=== PATIENT | male | born 1960 | race Caucasian/White ===

== ENCOUNTER 2018-04-21 15:50 | Emergency (ER) | payer OTHER ==
--- OUTSIDE RECORDS SUMMARY | 2018-04-21 15:53 | XMS REPORT | Clinical Summary ---
:1960 Author Organization [facility] Address [address] [place] [address] Care Team Providers Name Role Phone Charisse Gramajo MD Primary Care Provider Allergies No Known Allergies Current Medications Prescription Sig. Disp. Refills Start Date End Date Status tamsulosin (FLOMAX) Take 1 capsule Active 0.4 mg every day by capsule,extended oral route for release 24hr 90 days. pantoprazole Take 1 tablet 30 tablet 1 02/19/2018 Active (PROTONIX) 40 MG EC (40 mg total) tablet by mouth daily. acetaminophen-codein Take 1 tablet Active e (TYLENOL WITH by mouth every CODEINE #4) 300-60 4 (four) hours mg per tablet as needed for moderate pain. capecitabine Take by mouth. Active (XELODA) 500 mg Take 3 tabs in chemo tablet the AM and 4 Tabs in the PM daily for 14 days then one week off traMADol (ULTRAM) 50 Take 50 mg by 11/22/19 Discontinued mg tablet mouth every 6 18 (six) hours as needed for moderate pain. omeprazole Take 20 mg by 11/22/19 Discontinued (PriLOSEC) 20 MG mouth daily. 18 capsule ondansetron (ZOFRAN) Take 1 tablet 50 tablet 0 08/12/2017 09/11/19 8 MG (8 mg total) by 18 tabletIndications: mouth every 6 Rectal cancer (six) hours as needed for nausea or vomiting for up to 30 days. capecitabine Take 4 tablets 200 tablet 0 08/12/2017 11/21/19 (XELODA) 500 mg (2,000 mg) by 18 chemo mouth every tabletIndications: morning and Rectal cancer evening on days of radiation. HYDROcodone-acetamin Take 1 tablet 100 tablet 08/12/2017 08/12/20 Discontinued ophen (NORCO) 5-325 by mouth every 17 mg per 4 (four) hours tabletIndications: as needed for Rectal cancer moderate pain for up to 30 days. Max Daily Amount: 6 tablets HYDROcodone-acetamin Take 1 tablet 100 tablet 08/12/2017 09/11/19 ophen (NORCO) 5-325 by mouth every 18 mg per 4 (four) hours tabletIndications: as needed for Rectal cancer moderate pain for up to 30 days. Max Daily Amount: 6 tablets SUPREP BOWEL PREP Take 2 Bottles 354 mL 0 11/25/2017 11/26/19 KIT 17.5-3.13-1.6 (354 mL total) 18 gram recon soln by mouth once for 1 dose. Take as directed by physician traMADol (ULTRAM) 50 Take 1-2 50 tablet 0 12/11/2017 12/22/19 mg tablet tablets (50-100 18 mg total) by mouth every 6 (six) hours as needed (pain) for up to 10 days. tamsulosin (FLOMAX) Take 1 capsule 30 capsule 0 12/11/2017 01/11/20 0.4 mg (0.4 mg total) 18 capsule,extended by mouth release 24hr nightly for 30 days. cefdinir (OMNICEF) Take 1 capsule 14 capsule 0 12/20/2017 12/28/19 300 MG capsule (300 mg total) 18 by mouth 2 (two) times a day for 7 days. phenazopyridine Take 1 tablet 6 tablet 0 12/20/2017 12/24/19 (PYRIDIUM) 200 MG (200 mg total) 18 tablet by mouth 3 (three) times a day for 3 days. zolpidem (AMBIEN) 5 Take 1 tablet 5 tablet 0 12/25/2017 12/26/19 Discontinued MG tablet (5 mg total) by 18 mouth nightly as needed for sleep for up to 5 days. zolpidem (AMBIEN) 5 Take 1 tablet 5 tablet 0 12/25/2017 12/31/19 MG tablet (5 mg total) by 18 mouth nightly as needed for sleep for up to 5 days. amoxicillin-pot Take 1 tablet 10 tablet 0 01/24/2018 02/02/20 Discontinued clavulanate by mouth 2 18 (AUGMENTIN) 875-125 (two) times a mg per tablet day for 5 days. ondansetron (ZOFRAN) Take 4 mg by 02/18/20 Discontinued 4 MG tablet mouth every 8 18 (eight) hours as needed for nausea or vomiting. capecitabine Take 3 tabs PO 98 tablet 8 02/17/2018 02/18/20 Discontinued (XELODA) 500 mg QAM and 4 tabs 18 chemo PO QPM daily tabletIndications: for 14 days, Rectal cancer then take 1 week off. capecitabine Take 3 tabs 98 tablet 8 02/17/2018 03/03/20 (XELODA) 500 mg (1500 mg) PO q 18 chemo tablet AM and 4 tabs (2000 mg) PO q PM daily for 14 days followed by 7 days off then repeat cycle simethicone (GAS-X) Chew 1 tablet 40 tablet 1 02/19/2018 03/21/20 80 MG chewable (80 mg total) 18 tablet every 6 (six) hours as needed for flatulence for up to 30 days. traMADol (ULTRAM) 50 Take 1 tablet 40 tablet 1 02/19/2018 03/14/20 Discontinued mg tablet (50 mg total) 18 by mouth every 6 (six) hours as needed for moderate pain for up to 30 days. ciprofloxacin Take 1 tablet 14 tablet 0 03/21/2018 03/25/20 Discontinued (CIPRO) 500 MG (500 mg total) 18 tablet by mouth 2 (two) times a day for 7 days. Active Problems Problem Noted Date Fever 01/23/2018 CA of rectum 12/03/2017 Rectal cancer 07/30/2017 Encounters Date Type Specialty Care Team Description 04/18/2018 Orders Only Oncology Anibal, Malignant neoplasm JERILYN Marquez of rectum (Primary Dx) 04/17/2018 Office Visit General Surgery Lisandro Velázquez MD Alagugurusamy, Virginia Burnett, RODY-Johnathan 04/09/2018 Office Visit General Surgery Lisandro Velázquez Rectal cancer MD Art (Primary Dx) 04/08/2018 Lab Lab Lucien Elaine MD 04/04/2018 Lab Lab Lisandro Velázquez MD 03/27/2018 Telephone Oncology Chivo Leung MD 03/26/2018 Orders Only Oncology Chivo Leung MD 03/25/2018 Lab Lab Chivo Leung Malignant neoplasm MD Johnson of rectum 03/25/2018 Office Visit Oncology Chivo Leung Malignant neoplasm of rectum (Primary Dx); MD Johnson Rectal cancer 03/25/2018 Orders Only Oncology Moriah Walters, PharmD 03/25/2018 Orders Only Oncology Anibal, Malignant neoplasm JERILYN Marquez of rectum (Primary Dx) 03/21/2018 Telephone Oncology Monik [facility] RN 03/21/2018 Telephone Oncology Alma Barnett, MA 03/21/2018 Orders Only Oncology Monik [facility] RN 03/20/2018 Office Visit General Surgery Lisandro Velázquez Rectal cancer MD Art (Primary Dx) 03/20/2018 Telephone Oncology Chivo Leung MD 03/14/2018 Infusion Oncology Chivo Leung Rectal cancer MD Johnson (Primary Dx) Xochitl Quiñonez RN 03/11/2018 Orders Only Oncology Monik [facility] RN 02/25/2018 Orders Only Oncology Faith Jones 02/25/2018 Orders Only Oncology Cynthia Garcia, PharmD 02/21/2018 Infusion Oncology Chivo Leung Rectal cancer MD Johnson (Primary Dx) 02/21/2018 Oncology Oncology Bronson Schroeder RN 02/21/2018 Orders Only Oncology James Chester RN 02/20/2018 Hospital Encounter Radiology Chivo Leung Malignant neoplasm MD Johnson of rectum 02/19/2018 Office Visit General Surgery Lisandro Velázquez Rectal cancer MD Art (Primary Dx) Kaye Trevino NP-C 02/19/2018 Telephone Oncology Chivo Leung MD 02/18/2018 Orders Only Oncology Monik [facility] RN 02/18/2018 Telephone Oncology Chivo Leung MD 02/17/2018 Hospital Encounter Radiology Chivo Leung Malignant neoplasm MD Johnson of rectum 02/17/2018 Orders Only Oncology Monik [facility] RN 02/17/2018 Telephone Oncology Chivo Leung MD 02/17/2018 Orders Only Oncology Chivo Leung Rectal cancer MD Johnson (Primary Dx) 02/14/2018 Orders Only Oncology Anibal, Malignant neoplasm of rectum ( Primary Dx); JERILYN Marquez Pre-op testing 02/13/2018 Lab Lab Chivo Leung Malignant neoplasm MD Johnson of rectum 02/13/2018 Office Visit Oncology Chivo Leung Malignant neoplasm of rectum (Primary Dx); MD Johnson Rectal cancer 02/13/2018 Orders Only Oncology Moriah Walters, Rectal cancer PharmD 02/07/2018 Telephone Oncology Chivo Leung MD 02/06/2018 Hospital Encounter Gastroenterology Lisandro Velázquez MD 02/06/2018 Anesthesia Event Gastroenterology Bc Nguyen MD 02/06/2018 Procedure Pass Gastroenterology 02/06/2018 Surgery Gastroenterology Lisandro Velázquez COLONOSCOPY MD Art 01/30/2018 Hospital Encounter Gastroenterology Lisandro Velázquez MD 01/30/2018 Procedure Pass Gastroenterology 01/30/2018 Surgery Gastroenterology Lisandro Velázquez COLONOSCOPY with MD Art bx and snare 01/29/2018 Anesthesia Event Gastroenterology Dhmarcela, Wesley Vaz MD 01/28/2018 Office Visit General Surgery Alagugurusamy, Rectal cancer ( Primary Dx); Kaye Rectal pain TAMMY Ventura Eric Mitchell, MD 01/24/2018 Office Visit General Surgery Lisandro Velázquez Rectal cancer MD Art (Primary Dx) 01/22/2018 Hospital Encounter Orthopedic Surgery Deep Koroma Fever, unspecified fever cause (Primary Dx); Audrey Styles MD Rectal pain; 01/24/2018 Lenin John Rectal bleeding; MD Rashel Acute renal failure, unspecified acute renal failure type 01/16/2018 Office Visit General Surgery Alagugurusamy, Rectal cancer Kaye (Primary Dx) TAMMY Ventura Eric Mitchell, MD 01/09/2018 Office Visit General Surgery Lisandro Velázquez Rectal cancer (Primary Dx); MD Art Adverse effect of radiation, subsequent encounter 01/02/2018 Office Visit General Surgery Lisandro Velázquez Rectal cancer (Primary Dx); MD Art Adverse effect of radiation, sequela 12/29/2017 Documentation General Surgery Lisandro Velázquez MD 12/25/2017 Office Visit General Surgery Lisandro Velázquez Rectal cancer MD Art (Primary Dx) 12/20/2017 Emergency Emergency Medicine Retana, Obstructed Camilo catheter , initial encounter (Primary Dx); - Mikel Angel, Generalized abdominal pain; 12/21/2017 DO Urinary tract infection associated with indwelling urethral catheter, initial encounter; Abnormal CT of the abdomen 12/20/2017 Documentation General Surgery Kaye Trevino NP-C 12/17/2017 Office Visit General Surgery Belinda, CA of rectum Kaye (Primary Dx) TAMMY Ventura 12/13/2017 Office Visit General Surgery Belinda, Dehydration ( Primary Dx); Kaye Rectal cancer TAMMY Ventura 12/11/2017 Patient Outreach Quality Shanice Chase RN 12/10/2017 Office Visit General Surgery Lisandro Velázquez Rectal cancer MD Art (Primary Dx) 12/03/2017 Hospital Encounter General Surgery Lisandro Velázquez CA of rectum - MD Art 12/11/2017 12/03/2017 Procedure Pass General Surgery 12/03/2017 Surgery General Surgery Lisandro Velázquez ROBOTIC ASSISTED MD Art LAPAROSCOPIC LOW ANTERIOR COLON RESECTION W/ DIVERTING LOOP ILEOSTOMY, SMALL BOWEL RESECTION 11/28/2017 Lab Lab Lisandro Velázquez MD 11/27/2017 Orders Only General Surgery Lisandro Velázquez Rectal cancer MD Art (Primary Dx) 11/25/2017 Orders Only General Surgery Lisandro Velázquez MD 11/21/2017 Office Visit General Surgery Lisandro Velázquez Rectal cancer MD Art (Primary Dx) 11/21/2017 Pre-Admit Testing Pre-Admission Testing Lisandro Velázquez Preop testing Appointment MD Art (Primary Dx) 11/21/2017 Anesthesia Event General Surgery Hannah Winslow NP 10/10/2017 Office Visit General Surgery Lisandro Velázquez Rectal cancer MD Art (Primary Dx) 10/10/2017 Hospital Encounter Radiation Oncology Johnson Nunez MD 09/09/2017 Hospital Encounter Radiation Oncology Johnson Nunez MD 09/10/2017 08/19/2017 Hospital Encounter Radiation Oncology Johnson Nunez MD 08/12/2017 Office Visit Oncology Chivo Leung Rectal cancer MD Johnson (Primary Dx) 08/12/2017 Orders Only Oncology Sofia Watson Rectal cancer RN (Primary Dx) 08/12/2017 Orders Only Oncology Sofia Watson Rectal cancer RN (Primary Dx) 08/09/2017 Office Visit General Surgery Lisandro Velázquez Rectal cancer MD Art (Primary Dx) 08/08/2017 Telephone Oncology Chivo Leung MD 08/06/2017 Hospital Encounter Radiology Lisandro Velázquez Rectal cancer MD Art 08/06/2017 Office Visit General Surgery Lisandro Velázquez Rectal cancer (Primary Dx); MD Art Fecal urgency 08/06/2017 Procedure Pass Radiology after 04/20/2017 Family History Medical History Relation Name Comments Lung cancer Father Asbestosis Relation Name Status Comments Father Social History Tobacco Use Types Packs/Day Years Used Date Never Smoker Smokeless Tobacco: Never Used Alcohol Use Drinks/Week oz/Week Comments Yes 4 Standard drinks or equivalent 2.4 Sex Assigned at Date Recorded Not on file Last Filed Vital Signs Vital Sign Reading Time Taken Blood Pressure 123/92 04/17/2018 2:51 PM CDT Pulse 53 04/17/2018 2:51 PM CDT Temperature 36.3 C (97.3 F) 03/20/2018 8:51 AM CDT Respiratory Rate 17 03/14/2018 10:45 AM CDT Oxygen Saturation 100% 03/14/2018 10:45 AM CDT Inhaled Oxygen Concentration - - Weight 104 kg (229 lb) 03/25/2018 12:09 PM CDT Height 188 cm (6' 2") 03/14/2018 10:45 AM CDT Body Mass Index 29.4 03/25/2018 12:09 PM CDT Plan of Treatment Date Type Specialty Care Team Description 04/23/2018 Office Visit General Surgery Lisandro Velázquez MD [address] [facility] [address] [place] [address] 04/25/2018 Infusion Oncology Chivo Leung MD [address] [place] [address] 05/08/2018 Lab Lab Lisandro Ruiz MD [address] [phone] 05/08/2018 Office Visit Oncology Chivo Leung MD [address] [place] [address] [phone] 05/16/2018 Infusion Oncology Chivo Leung MD [address] [place] [address] [phone] 06/06/2018 Infusion Oncology Chivo Leung MD [address] [place] [phone] 06/27/2018 Infusion Oncology Chivo Leung MD [address] [place] [phone] 07/18/2018 Infusion Oncology Chivo Leung MD [address] [place] [phone] Health Maintenance Due Date Last Done Comments SHINGRIX VACCINE (#1) 02/12/2012 INFLUENZA VACCINE 04/09/2018 COLON CANCER SCREENING 07/30/2027 07/30/2017 Implants Implanted Type Area Sales Service Rep Device Expiration Model / Identifier Date Serial / Lot Port Imlpntbl Smart Port W/ Dtchd 0.4ml 6.6fr 55cm W/ Sheath - [id number] Implantable N/A: ANGIODYNAMICS 11/06/2020 [id number] / Implanted: 02/20/2018 (Quantity not on file) Infusion Ports N/A INC / or Accessories [id number] Procedures Procedure Name Priority Date/Time Associated Diagnosis Comments SMEAR REVIEW STAT 03/25/2018 11:29 Results for this AM CDT procedure are in the results section. VITAMIN D 25 HYDROXY STAT 03/25/2018 11:29 Malignant neoplasm of Results for this LEVEL AM CDT rectum procedure are in the results section. ESTIMATED GFR STAT 03/25/2018 11:29 Results for this AM CDT procedure are in the results section. HC COMPLETE BLD COUNT STAT 03/25/2018 11:29 Malignant neoplasm of Results for this W/AUTO DIFF AM CDT rectum procedure are in the results section. URIC ACID LEVEL STAT 03/25/2018 11:29 Malignant neoplasm of Results for this AM CDT rectum procedure are in the results section. PHOSPHORUS LEVEL STAT 03/25/2018 11:29 Malignant neoplasm of Results for this AM CDT rectum procedure are in the results section. LDH STAT 03/25/2018 11:29 Malignant neoplasm of Results for this AM CDT rectum procedure are in the results section. CARCINOEMBRYONIC STAT 03/25/2018 11:29 Malignant neoplasm of Results for this ANTIGEN (CEA) AM CDT rectum procedure are in the results section. COMPREHENSIVE METABOLIC STAT 03/25/2018 11:29 Malignant neoplasm of Results for this PANEL AM CDT rectum procedure are in the results section. GGT STAT 03/25/2018 11:29 Malignant neoplasm of Results for this AM CDT rectum procedure are in the results section. HC COMPLETE BLD COUNT STAT 03/14/2018 11:10 Rectal cancer Results for this W/AUTO DIFF AM CDT procedure are in the results section. ESTIMATED GFR STAT 03/14/2018 10:44 Results for this AM CDT procedure are in the results section. MAGNESIUM LEVEL STAT 03/14/2018 10:44 Rectal cancer Results for this AM CDT procedure are in the results section. COMPREHENSIVE METABOLIC STAT 03/14/2018 10:44 Rectal cancer Results for this PANEL AM CDT procedure are in the results section. ESTIMATED GFR STAT 02/21/2018 10:50 Results for this AM CDT procedure are in the results section. MAGNESIUM LEVEL STAT 02/21/2018 10:50 Rectal cancer Results for this AM CDT procedure are in the results section. HC COMPLETE BLD COUNT STAT 02/21/2018 10:50 Rectal cancer Results for this W/AUTO DIFF AM CDT procedure are in the results section. COMPREHENSIVE METABOLIC STAT 02/21/2018 10:50 Rectal cancer Results for this PANEL AM CDT procedure are in the results section. IR PORT PLACEMENT Routine 02/20/2018 12:35 Malignant neoplasm of Results for this PM CDT rectum procedure are in the results section. CT CHEST W CONTRAST Routine 02/17/2018 3:09 Malignant neoplasm of Results for this ABDOMEN W WO CONTRAST PM CDT rectum procedure are in PELVIS W CONTRAST the results section. PARTIAL THROMBOPLASTIN Routine 02/14/2018 1:34 Malignant neoplasm of Results for this TIME (PTT) PM CDT rectum procedure are in Pre-op testing the results section. PROTHROMBIN TIME WITH Routine 02/14/2018 1:34 Malignant neoplasm of Results for this INR PM CDT rectum procedure are in Pre-op testing the results section. CBC WITH PLATELET AND Routine 02/14/2018 1:34 Malignant neoplasm of Results for this DIFFERENTIAL PM CDT rectum procedure are in the results section. URIC ACID LEVEL Routine 02/14/2018 1:34 Malignant neoplasm of Results for this PM CDT rectum procedure are in the results section. PHOSPHORUS LEVEL Routine 02/14/2018 1:34 Malignant neoplasm of Results for this PM CDT rectum procedure are in the results section. LDH Routine 02/14/2018 1:34 Malignant neoplasm of Results for this PM CDT rectum procedure are in the results section. CARCINOEMBRYONIC Routine 02/14/2018 1:34 Malignant neoplasm of Results for this ANTIGEN (CEA) PM CDT rectum procedure are in the results section. GGT Routine 02/14/2018 1:34 Malignant neoplasm of Results for this PM CDT rectum procedure are in the results section. ESTIMATED GFR Routine 02/13/2018 4:07 Results for this PM CDT procedure are in the results section. COMPREHENSIVE METABOLIC Routine 02/13/2018 4:07 Malignant neoplasm of Results for this PANEL PM CDT rectum procedure are in the results section. HC COMPLETE BLD COUNT Routine 02/06/2018 9:00 Results for this W/AUTO DIFF AM CDT procedure are in the results section. ALBUMIN LEVEL Routine 02/06/2018 9:00 Results for this AM CDT procedure are in the results section. COLONOSCOPY 02/06/2018 7:44 CA of rectum AM CDT SURGICAL PATHOLOGY Routine 01/30/2018 3:13 Results for this REQUEST PM CDT procedure are in the results section. COLONOSCOPY 01/30/2018 1:00 Adenocarcinoma of PM CDT rectum CONSULT TO OSTOMY CARE STAT 01/24/2018 11:44 NURSE AM CDT HC COMPLETE BLD COUNT STAT 01/24/2018 9:09 Results for this W/AUTO DIFF AM CDT procedure are in the results section. SMEAR REVIEW Routine 01/24/2018 6:28 Results for this AM CDT procedure are in the results section. HC COMPLETE BLD COUNT Routine 01/24/2018 6:28 Results for this W/AUTO DIFF AM CDT procedure are in the results section. ESTIMATED GFR Routine 01/24/2018 4:00 Results for this AM CDT procedure are in the results section. PHOSPHORUS LEVEL Routine 01/24/2018 4:00 Results for this AM CDT procedure are in the results section. MAGNESIUM LEVEL Routine 01/24/2018 4:00 Results for this AM CDT procedure are in the results section. BASIC METABOLIC PANEL Routine 01/24/2018 4:00 Results for this AM CDT procedure are in the results section. PREPARE RBC Timed 01/23/2018 8:30 Results for this PM CDT procedure are in the results section. TYPE AND SCREEN Timed 01/23/2018 8:30 Results for this PM CDT procedure are in the results section. CT ABDOMEN PELVIS WO Routine 01/23/2018 6:31 Results for this CONTRAST PM CDT procedure are in the results section. GASTROINTESTINAL PANEL Routine 01/23/2018 3:29 Results for this PM CDT procedure are in the results section. URINALYSIS SCREEN AND Routine 01/23/2018 2:35 Results for this MICROSCOPY, WITH REFLEX PM CDT procedure are in TO CULTURE the results section. URINE CULTURE Routine 01/23/2018 2:35 Results for this PM CDT procedure are in the results section. OSMOLALITY, URINE Routine 01/23/2018 5:20 Results for this AM CDT procedure are in the results section. CHLORIDE LEVEL, URINE, Routine 01/23/2018 5:20 Results for this RANDOM AM CDT procedure are in the results section. UREA NITROGEN, URINE, Routine 01/23/2018 5:20 Results for this RANDOM AM CDT procedure are in the results section. URINE EOSINOPHILS Routine 01/23/2018 5:20 Results for this AM CDT procedure are in the results section. CREATININE LEVEL, Routine 01/23/2018 5:20 Results for this URINE, RANDOM AM CDT procedure are in the results section. PROTEIN, URINE, RANDOM Routine 01/23/2018 5:20 Results for this AM CDT procedure are in the results section. SODIUM LEVEL, URINE, Routine 01/23/2018 5:20 Results for this RANDOM AM CDT procedure are in the results section. SMEAR REVIEW Routine 01/23/2018 4:58 Results for this AM CDT procedure are in the results section. ESTIMATED GFR Routine 01/23/2018 4:58 Results for this AM CDT procedure are in the results section. BASIC METABOLIC PANEL Routine 01/23/2018 4:58 Results for this AM CDT procedure are in the results section. HC COMPLETE BLD COUNT Routine 01/23/2018 4:58 Results for this W/AUTO DIFF AM CDT procedure are in the results section. XR CHEST 1 VW PORTABLE STAT 01/22/2018 8:26 Results for this PM CDT procedure are in the results section. ESTIMATED GFR STAT 01/22/2018 8:00 Results for this PM CDT procedure are in the results section. COMPREHENSIVE METABOLIC STAT 01/22/2018 8:00 Results for this PANEL PM CDT procedure are in the results section. HC COMPLETE BLD COUNT STAT 01/22/2018 8:00 Results for this W/AUTO DIFF PM CDT procedure are in the results section. BLOOD CULTURE, AEROBIC Routine 01/22/2018 8:00 Results for this & ANAEROBIC PM CDT procedure are in the results section. BLOOD CULTURE, AEROBIC Routine 01/22/2018 8:00 Results for this & ANAEROBIC PM CDT procedure are in the results section. CT RENAL STONE PROTOCOL STAT 12/20/2017 10:59 Results for this PM CDT procedure are in the results section. URINALYSIS SCREEN AND Routine 12/20/2017 10:39 Results for this MICROSCOPY, WITH REFLEX PM CDT procedure are in TO CULTURE the results section. GRAM STAIN Routine 12/20/2017 8:45 Results for this PM CDT procedure are in the results section. URINE CULTURE Routine 12/20/2017 8:45 Results for this PM CDT procedure are in the results section. HC COMPLETE BLD COUNT Routine 12/11/2017 9:41 Results for this W/AUTO DIFF AM CDT procedure are in the results section. XR CHEST 1 VW PORTABLE Routine 12/10/2017 4:19 Results for this PM CDT procedure are in the results section. URINALYSIS SCREEN AND Routine 12/10/2017 9:50 Results for this MICROSCOPY, WITH REFLEX AM CDT procedure are in TO CULTURE the results section. GRAM STAIN Routine 12/10/2017 9:50 Results for this AM CDT procedure are in the results section. URINE CULTURE Routine 12/10/2017 9:50 Results for this AM CDT procedure are in the results section. BLOOD CULTURE, AEROBIC Routine 12/10/2017 9:30 Results for this & ANAEROBIC AM CDT procedure are in the results section. BLOOD CULTURE, AEROBIC Routine 12/10/2017 9:30 Results for this & ANAEROBIC AM CDT procedure are in the results section. ESTIMATED GFR STAT 12/10/2017 7:42 Results for this AM CDT procedure are in the results section. HC COMPLETE BLD COUNT STAT 12/10/2017 7:42 Results for this W/AUTO DIFF AM CDT procedure are in the results section. BASIC METABOLIC PANEL STAT 12/10/2017 7:42 Results for this AM CDT procedure are in the results section. CT ABDOMEN PELVIS W Routine 12/09/2017 10:10 Results for this CONTRAST PM CDT procedure are in the results section. ESTIMATED GFR Routine 12/09/2017 4:00 Results for this AM CDT procedure are in the results section. PHOSPHORUS LEVEL Routine 12/09/2017 4:00 Results for this AM CDT procedure are in the results section. MAGNESIUM LEVEL Routine 12/09/2017 4:00 Results for this AM CDT procedure are in the results section. BASIC METABOLIC PANEL Routine 12/09/2017 4:00 Results for this AM CDT procedure are in the results section. HC COMPLETE BLD COUNT Routine 12/09/2017 3:50 Results for this W/AUTO DIFF AM CDT procedure are in the results section. HC COMPLETE BLD COUNT Routine 12/08/2017 4:48 Results for this W/AUTO DIFF AM CDT procedure are in the results section. ESTIMATED GFR Routine 12/08/2017 4:00 Results for this AM CDT procedure are in the results section. PHOSPHORUS LEVEL Routine 12/08/2017 4:00 Results for this AM CDT procedure are in the results section. MAGNESIUM LEVEL Routine 12/08/2017 4:00 Results for this AM CDT procedure are in the results section. BASIC METABOLIC PANEL Routine 12/08/2017 4:00 Results for this AM CDT procedure are in the results section. HC COMPLETE BLD COUNT Routine 12/07/2017 5:10 Results for this W/AUTO DIFF AM CDT procedure are in the results section. ESTIMATED GFR Routine 12/07/2017 4:00 Results for this AM CDT procedure are in the results section. PHOSPHORUS LEVEL Routine 12/07/2017 4:00 Results for this AM CDT procedure are in the results section. MAGNESIUM LEVEL Routine 12/07/2017 4:00 Results for this AM CDT procedure are in the results section. BASIC METABOLIC PANEL Routine 12/07/2017 4:00 Results for this AM CDT procedure are in the results section. POC GLUCOSE Routine 12/06/2017 4:27 Results for this PM CDT procedure are in the results section. XR CHEST 1 VW PORTABLE Routine 12/06/2017 1:28 Results for this PM CDT procedure are in the results section. URINALYSIS SCREEN AND Routine 12/06/2017 12:25 Results for this MICROSCOPY, WITH REFLEX PM CDT procedure are in TO CULTURE the results section. URINE CULTURE Routine 12/06/2017 12:25 Results for this PM CDT procedure are in the results section. XR ABDOMEN 1 VW STAT 12/06/2017 4:40 Results for this PORTABLE AM CDT procedure are in the results section. ESTIMATED GFR Routine 12/06/2017 3:45 Results for this AM CDT procedure are in the results section. PHOSPHORUS LEVEL Routine 12/06/2017 3:45 Results for this AM CDT procedure are in the results section. MAGNESIUM LEVEL Routine 12/06/2017 3:45 Results for this AM CDT procedure are in the results section. BASIC METABOLIC PANEL Routine 12/06/2017 3:45 Results for this AM CDT procedure are in the results section. HC COMPLETE BLD COUNT Routine 12/06/2017 3:45 Results for this W/AUTO DIFF AM CDT procedure are in the results section. URINE EOSINOPHILS STAT 12/05/2017 6:45 Results for this PM CDT procedure are in the results section. CREATININE LEVEL, STAT 12/05/2017 6:45 Results for this URINE, RANDOM PM CDT procedure are in the results section. SODIUM LEVEL, URINE, STAT 12/05/2017 6:45 Results for this RANDOM PM CDT procedure are in the results section. URINALYSIS SCREEN AND STAT 12/05/2017 6:45 Results for this MICROSCOPY, WITH REFLEX PM CDT procedure are in TO CULTURE the results section. GRAM STAIN STAT 12/05/2017 6:45 Results for this PM CDT procedure are in the results section. URINE CULTURE STAT 12/05/2017 6:45 Results for this PM CDT procedure are in the results section. US RENAL Routine 12/05/2017 4:39 Results for this PM CDT procedure are in the results section. ESTIMATED GFR Routine 12/05/2017 4:00 Results for this AM CDT procedure are in the results section. PHOSPHORUS LEVEL Routine 12/05/2017 4:00 Results for this AM CDT procedure are in the results section. MAGNESIUM LEVEL Routine 12/05/2017 4:00 Results for this AM CDT procedure are in the results section. BASIC METABOLIC PANEL Routine 12/05/2017 4:00 Results for this AM CDT procedure are in the results section. HC COMPLETE BLD COUNT Routine 12/05/2017 4:00 Results for this W/AUTO DIFF AM CDT procedure are in the results section. ESTIMATED GFR Routine 12/04/2017 4:00 Results for this AM CDT procedure are in the results section. PHOSPHORUS LEVEL Routine 12/04/2017 4:00 Results for this AM CDT procedure are in the results section. MAGNESIUM LEVEL Routine 12/04/2017 4:00 Results for this AM CDT procedure are in the results section. BASIC METABOLIC PANEL Routine 12/04/2017 4:00 Results for this AM CDT procedure are in the results section. HC COMPLETE BLD COUNT Routine 12/04/2017 4:00 Results for this W/AUTO DIFF AM CDT procedure are in the results section. CONSULT TO OSTOMY CARE Routine 12/03/2017 10:58 NURSE PM CDT NJ AN ELECTIVE Routine 12/03/2017 5:00 ENDOTRACHEAL AIRWAY PM CDT Procedure Note - John Parks CRNA - 12/03/2017 5:00 PM CDT Airway Date/Time: 12/03/2017 4:28 PM Performed by: JOHN PARKS Authorized by: NETTIE MAE Location: OR Urgency: Elective Difficult Airway: No Anesthesiologist: NETTIE MAE Resident/WAREHOUSE ADMINISTRATOR/AA: JOHN PARKS Performed by: resident/WAREHOUSE ADMINISTRATOR/AA Preoxygenated with 100% O2: Yes C-spine Precautions Maintained Throughout: Yes Mask Ventilation: Easy mask Final Airway Type: Endotracheal airway Final Endotracheal Airway: ETT Cuffed: Yes Technique Used: Direct laryngoscopy Insertion Site: Oral Blade Type: Michelle Laryngoscope Blade/Videolaryngoscope Blade Size: 4 ETT Size (mm): 8.0 Cuff at minimum occlusion pressure: Yes Placement Verified by: CO2 detection, direct visualization and equal breath sounds Laryngoscopic view: Grade I - full view of glottis Rapid Sequence Induction (RSI): No Modified RSI: No Number of Attempts at Approach: 1 RESECTION, COLON, LOW ANTERIOR, 12/03/2017 4:45 PM CDT CA of rectum LAPAROSCOPIC, ROBOT-ASSISTED Special Needs XI, AIRSEAL, TATME SET UP CONSULT TO OSTOMY CARE STAT 12/03/2017 11:39 AM NURSE CDT SURGICAL PATHOLOGY Routine 12/03/2017 11:30 AM Results for this REQUEST CDT procedure are in the results section. SURGICAL PATHOLOGY Routine 12/03/2017 11:30 AM Results for this REQUEST CDT procedure are in the results section. SURGICAL PATHOLOGY Routine 12/03/2017 11:30 AM Results for this REQUEST CDT procedure are in the results section. SURGICAL PATHOLOGY Routine 12/03/2017 11:30 AM Results for this REQUEST CDT procedure are in the results section. HC COMPLETE BLD COUNT STAT 11/28/2017 2:44 PM Rectal cancer Results for this W/AUTO DIFF CDT procedure are in the results section. ESTIMATED GFR Routine 11/21/2017 8:35 AM Results for this CDT procedure are in the results section. TYPE AND SCREEN Routine 11/21/2017 8:35 AM Preop testing Results for this CDT procedure are in the results section. COMPREHENSIVE METABOLIC Routine 11/21/2017 8:35 AM Preop testing Results for this PANEL CDT procedure are in the results section. HC COMPLETE BLD COUNT Routine 11/21/2017 8:35 AM Preop testing Results for this W/AUTO DIFF CDT procedure are in the results section. MRI PELVIS W WO CONTRAST STAT 08/06/2017 1:40 PM Rectal cancer Results for this [employer]OP[employer] procedure are in the results section. after 04/20/2017 Results Smear review (03/25/2018 11:29 AM)Only the most recent of3 resultswithin the time period is included. Platelet slide review Dorie adequate [facility] Anisocytosis Moderate [facility] Polychromasia Moderate [facility] Ovalocytes Moderate [facility] Performing Organization Address City/State/Zipcode Phone Number [facility] [address] [place] [address] [place] Estimated GFR (03/25/2018 11:29 AM)Only the most recent of15 resultswithin the time period is included. GFR Non Af Amer 69 mL/min/1.73 m2 [facility] GFR Af Amer 84 mL/min/1.73 m2 [facility] Comment: PATHOLOGY AND GENOMIC Chronic kidney disease: <60 mL/min/1.73m2 MEDICINE Kidney failure: <15 mL/min/1.73m2 The estimated GFR is calculated from the IDMS-traceable Modification of Diet in Renal Disease Equation. The accuracy of the calculation is poor when the creatinine is normal. Calculated values >90 mL/min/1.73m2 are not reported. This equation has not been validated in children (<18 years), women, the elderly (>70 years), or ethnic groups other than Caucasians and Americans. Specimen Plasma specimen Performing Organization Address City/[facility] Phone Number [facility] [address] [place] [id number] [facility] Vitamin D 25 hydroxy level (03/25/2018 11:29 AM) Vitamin D, 25-hydroxy 17.4 (L) 30.0 - 150.0 [facility] Comment: ng/mL PATHOLOGY AND GENOMIC This assay reports the sum of 25-hydroxy vitamin D3 and 25-hydroxy vitamin MEDICINE D2. Reference range: 0-17 years: Deficiency: less than 20ng/mL Optimum level: greater than or equal to 20 ng/mL. 18 years and older: Deficiency: less than 20ng/mL Insufficiency: 20-29 ng/mL Optimum Level: 30-80 ng/mL The assay reportable range is 3.4155.9 ng/mL. Levels higher than 150 ng/mL may be associated with toxicity. If toxicity is clinically suspected and the reported result is >155.9 ng/mL,contact lab for alternative methods to obtain a definitivelevel. If separate quantitation of 25-hydroxy vitamin D3 and 25-hydroxy vitamin D2 is needed, please contact lab for alternative methods. Specimen Blood Performing Organization Address City/State/Zipcode Phone Number [facility] [address] [place] [phone] [place] CBC with platelet and differential (03/25/2018 11:29 AM)Only the most recent of19 resultswithin the time period is included. WBC 7.14 4.50 - 11.00 k/uL [facility] RBC 3.00 (L) 4.40 - 6.00 m/uL [facility] HGB 8.4 (L) 14.0 - 18.0 g/dL [facility] HCT 27.5 (L) 41.0 - 51.0 % [facility] MCV 91.7 82.0 - 100.0 fL [facility] MCH 28.0 27.0 - 34.0 pg [facility] MCHC 30.5 (L) 31.0 - 37.0 g/dL [facility] RDW - SD 71.2 (H) 37.0 - 55.0 fL [facility] MPV 9.7 8.8 - 13.2 fL [facility] Platelet count 206 150 - 400 k/uL [facility] Nucleated RBC 0.00 /100 WBC [facility] Neutrophils 76.4 (H) 39.0 - 69.0 % [facility] Lymphocytes 12.3 (L) 25.0 - 45.0 % [facility] Monocytes 10.1 (H) 0.0 - 10.0 % [facility] Eosinophils 0.7 0.0 - 5.0 % [facility] Basophils 0.1 0.0 - 1.0 % [facility] Immature granulocytes 0.4Comment: 0.0 - 1.0 % [facility] "Immature PATHOLOGY AND GENOMIC granulocytes" MEDICINE (promyelocytes, myelocytes, metamyelocytes) Specimen Blood Performing Organization Address City/[facility] Phone Number [facility] [address] [place] [address] Uric acid level (03/25/2018 11:29 AM)Only the most recent of2 resultswithin the time period is included. Uric acid 7.2 (H) 3.4 - 7.0 mg/dL [facility] Specimen Plasma specimen Performing Organization Address City/[facility]/Zipcode Phone Number [facility] [address] [place] [address] Phosphorus level (03/25/2018 11:29 AM)Only the most recent of9 resultswithin the time period is included. Phosphorus 3.0 2.4 - 4.5 mg/dL [facility] Specimen Plasma specimen Performing Organization Address [facility] Phone Number [facility] [address] [place] [address] LDH (03/25/2018 11:29 AM)Only the most recent of2 resultswithin the time period is included. LDH 246 (H) 87 - 225 U/L [facility] Specimen Plasma specimen Performing Organization Address [facility] Phone Number [facility] [address] [place] [address] GGT (03/25/2018 11:29 AM)Only the most recent of2 resultswithin the time period is included. GGT 36 0 - 59 U/L [facility] Specimen Plasma specimen Performing Organization Address [facility] Phone Number [facility] [address] [place] [address] Carcinoembryonic antigen (CEA) (03/25/2018 11:29 AM)Only the most recent of2 resultswithin the time period is included. CEA 78.0 (H) 0.0 - 3.8 ng/mL [facility] Comment: AND [facility] Reference range for heavy smokers:0.0 - 5.5 ng/mL The ELISA Salma 8000 CEA immunoassay was used. Results obtained with different assay methods or kits should not be used interchangeably and may be different. Specimen Serum Performing Organization Address [facility] Phone Number [facility] [address] [place] [address] Comprehensive metabolic panel (03/25/2018 11:29 AM)Only the most recent of6 resultswithin the time period is included. Sodium 140 135 - 148 mEq/L [facility] Potassium 4.1 3.5 - 5.0 mEq/L [facility] Chloride 101 98 - 112 mEq/L [facility] CO2 25 24 - 31 mEq/L [facility] Anion gap 14@ANIO 7 - 15 mEq/L [facility] BUN 9 6 - 20 mg/dL [facility] Creatinine 1.1 0.7 - 1.2 mg/dL [facility] Glucose 119 (H) 65 - 99 mg/dL [facility] Calcium 9.0 8.3 - 10.2 mg/dL [facility] Protein 7.2 6.3 - 8.3 g/dL [facility] Comment: PATHOLOGY AND GENOMIC [place] 4.6-7.0 g/dL MEDICINE 1 week 4.4-7.6 g/dL 7 months-1year5.1-7.3 g/dL 1-2 years5.6-7.5 g/dL >3 years6.0-8.0 g/dL 18-150 6.3-8.3 g/dL Albumin 2.8 (L) 3.5 - 5.0 g/dL [facility] A/G ratio 0.6 (L) 0.7 - 3.8 [facility] Alkaline phosphatase 57 40 - 129 U/L [facility] AST 19 10 - 50 U/L [facility] ALT 7 5 - 50 U/L [facility] Total bilirubin 0.7 0.0 - 1.2 mg/dL [facility] Specimen Plasma specimen Performing Organization Address [facility] Phone Number [facility] [address] [place] [phone] [facility] Magnesium level (03/14/2018 10:44 AM)Only the most recent of9 resultswithin the time period is included. Magnesium 1.7 1.6 - 2.6 mg/dL [facility] Specimen Plasma specimen Performing Organization Address [facility] Phone Number [facility] [address] [place] [phone] [facility] IR Port Placement (02/20/2018 12:35 PM) Narrative Performed At [facility] Examination:IR PORT PLACEMENT Clinical history:"C20 Malignant neoplasm of rectum, rectal castart of chemo therapy" Comparison:There are no prior studies for comparison. Anesthesia:Lidocaine solution was injected into the involved tissues. Conscious sedation:After the risks and benefits of conscious sedation were discussed, midazolam and fentanyl were administered intravenously.Throughout the conscious sedation duration, the patient was continuously monitored by a registered nurse. The physician intraservice [id number] time with the patient was 17 minutes. Reference air kerma:1 mGy. Technique:The patient was prepared using sterile technique after signed, informed consent was obtained. Maximal sterile barrier technique was implemented.Prior to the start of the procedure, intravenous antibiotics were administered prophylactically. The right internal jugular vein was imaged sonographically and was found to be patent and appropriate for percutaneous access.Under real-time sonographic guidance, the vessel was accessed using a 21-gauge needle with real-time visualization of needle entry into the vessel.A sonographic image of the accessed vessel was obtained as permanent documentation.Seldinger technique was used to advance a standard guidewire into the inferior vena cava.A 2 cm in length incision was made caudal and lateral to the venotomy.Blunt dissection was used to create a port pocket was sized to snugly fit the port.Once hemostasis within the pocket was confirmed, the pocket was washed thoroughly with antibacterial solution.The 6.6-[place] catheter was tunneled from the port pocket to the venotomy and was severed to an appropriate length.The proximal end of the catheter was connected to the port and the port placed within the pocket.A peel-away sheath was placed over the wire.The distal end of the catheter was fed through the sheath and positioned using real-time fluoroscopic guidance with the catheter tip within the right atrium.The port catheter was tested and found to function appropriately.The incision overlying the port pocket was closed with absorbable suture using interrupted technique within the deeper tissues.Specifically, 4 distinct interrupted closures were placed.The more superficial tissues were closed with absorbable suture using running, subcuticular technique.Dermabond was applied to both incisions, per routine.The port was accessed with a Bernal needle and the port catheter was packed with heparinized solution.The needle was left in place for continued use of the port catheter. Estimated blood loss:Less than 2 cc. Complications:None. Specimens removed:Not applicable. Assistants:None. IMPRESSION:A 6.6 [place] power-injectable port catheter was placed via the right internal jugular vein as described above.The port catheter is ready for use. Thank you for allowing us to participate in the care of your patient. [id number] Procedure Note Hm Interface, Radiology Results Incoming - 02/20/2018 12:42 PM CDT Examination: IR PORT PLACEMENT Clinical history: "C20 Malignant neoplasm of rectum, rectal ca start of chemo therapy" Comparison: There are no prior studies for comparison. Anesthesia: Lidocaine solution was injected into the involved tissues. Conscious sedation: After the risks and benefits of conscious sedation were discussed, midazolam and fentanyl were administered intravenously. Throughout the conscious sedation duration, the patient was continuously monitored by a registered nurse. The physician intraservice [id number] time with the patient was 17 minutes. Reference air kerma: 1 mGy. Technique: The patient was prepared using sterile technique after signed, informed consent was obtained. Maximal sterile barrier technique was implemented. Prior to the start of the procedure, intravenous antibiotics were administered prophylactically. The right internal jugular vein was imaged sonographically and was found to be patent and appropriate for percutaneous access. Under real-time sonographic guidance, the vessel was accessed using a 21-gauge needle with real-time visualization of needle entry into the vessel. A sonographic image of the accessed vessel was obtained as permanent documentation. Seldinger technique was used to advance a standard guidewire into the inferior vena cava. A 2 cm in length incision was made caudal and lateral to the venotomy. Blunt dissection was used to create a port pocket was sized to snugly fit the port. Once hemostasis within the pocket was confirmed, the pocket was washed thoroughly with antibacterial solution. The 6.6-[place] catheter was tunneled from the port pocket to the venotomy and was severed to an appropriate length. The proximal end of the catheter was connected to the port and the port placed within the pocket. A peel-away sheath was placed over the wire. The distal end of the catheter was fed through the sheath and positioned using real-time fluoroscopic guidance with the catheter tip within the right atrium. The port catheter was tested and found to function appropriately. The incision overlying the port pocket was closed with absorbable suture using interrupted technique within the deeper tissues. Specifically, 4 distinct interrupted closures were placed. The more superficial tissues were closed with absorbable suture using running, subcuticular technique. Dermabond was applied to both incisions, per routine. The port was accessed with a Bernal needle and the port catheter was packed with heparinized solution. The needle was left in place for continued use of the port catheter. Estimated blood loss: Less than 2 cc. Complications: None. Specimens removed: Not applicable. Assistants: None. IMPRESSION: A 6.6 [place] power-injectable port catheter was placed via the right internal jugular vein as described above. The port catheter is ready for use. Thank you for allowing us to participate in the care of your patient. [id number] Performing Organization Address City/State/Zipcode Phone Number [facility] [address] [place] [address] CT Chest W Contrast Abdomen W Wo Contrast Pelvis W Contrast (02/17/2018 3:09 PM ) Narrative Performed At EXAMINATION:CT CHEST W CONTRAST ABDOMEN W WO CONTRAST PELVIS W HM [facility] CONTRAST History: C20 Malignant neoplasm of rectum, rectal ca COMPARISON: None. TECHNIQUE: Multiple axial CT images of the chest performed With IV contrast.. Coronal and sagittal reconstructions were done. CT imaging was performed with iterative reconstruction technique and/or automated exposure control to reduce radiation dose. FINDINGS: LUNGS: There is no focal consolidation, pleural effusion, or pneumothorax. There is a pulmonary nodule in the left lower lobe measuring 7 mm in image 72 series 4. AIRWAYS: No central endobronchial or endotracheal lesions are seen. MEDIASTINUM: The thoracic aorta is without aneurysm or dissection. The pulmonary arteries are unremarkable. Cardiac chambers are within normal limits. No significant pericardial effusion is present. No enlarged mediastinal or hilar lymph nodes present. The esophagus is unremarkable. BONES AND OVERLYING SOFT TISSUES: The visualized bones are without destructive lesions. No enlarged axillary lymph nodes present. VISUALIZED LOWER NECK :Unremarkable. IMPRESSION: Left lower lobe 7 mm pulmonary nodule. No priors exams available for comparison. Follow-up CT chest in 6-12 months recommended. COMPARISON:January 23, 2018 TECHNIQUE: Multiple axial CT images of the Abdomen and pelviswere obtained With IV contrast Oral contrast was administered. sagittal and coronal reconstructions were done. CT imaging was performed with iterative reconstruction technique and/or automated exposure control to reduce radiation dose. FINDINGS: HEPATOBILIARY:Hepatic metastases increased in number when compared to the prior exam. The largest mass measures approximately 3.6 cm in the right hepatic dome. No intrahepatic biliary dilation. The main portal vein is patent.. GALLBLADDER: Normal. SPLEEN:No splenomegaly. PANCREAS:No focal masses or ductal dilation. ADRENALS:No adrenal nodules. KIDNEYS:No stones, hydronephrosis, or solid mass.] Cyst stable. PERITONEUM/RETROPERITONEUM:Mildly worse in right renal adenopathy with a confluent lymph node measuring 1.5 cm in image 171 series 3. There is also increase of the retroperitoneal nodule on the left measuring 1.6 cm encasing a linear calcification or suture. No free air or free fluid. ABDOMINAL AORTA/IVC: No aneurysm or dissection. GI TRACT:Visualized portions of the bowel demonstrate no distention or wall thickening. There is appendicitis or diverticulitis. PELVIC ORGANS/BLADDER:There is persistent perirectal fluid and air measuring up to 1.6 cm in thickness around the perinephric fat. There is nodularity to the internal margin. The presacral mass measures 2.2 cm worse when compared to the prior exam. Small pelvic lymph nodes also worse measures up to 9 mm. Urinary bladder is fluid-filled. Small amount of air in urinary bladder should be correlated to recent catheterization. BONES AND SOFT TISSUES:No suspicious findings. IMPRESSION: Worsening hepatic and retroperitoneal metastases. Worsening metastatic adenopathy in the pelvis and perirectal nodularity. Perirectal air and fluid is concerning for persistent infection or leak. [id number] Procedure Note [facility], Radiology Results Incoming - 02/17/2018 5:18 PM CDT EXAMINATION: CT CHEST W CONTRAST ABDOMEN W WO CONTRAST PELVIS W CONTRAST History: C20 Malignant neoplasm of rectum, rectal ca COMPARISON: None. TECHNIQUE: Multiple axial CT images of the chest performed With IV contrast.. Coronal and sagittal reconstructions were done. CT imaging was performed with iterative reconstruction technique and/or automated exposure control to reduce radiation dose. FINDINGS: LUNGS: There is no focal consolidation, pleural effusion, or pneumothorax. There is a pulmonary nodule in the left lower lobe measuring 7 mm in image 72 series 4. AIRWAYS: No central endobronchial or endotracheal lesions are seen. MEDIASTINUM: The thoracic aorta is without aneurysm or dissection. The pulmonary arteries are unremarkable. Cardiac chambers are within normal limits. No significant pericardial effusion is present. No enlarged mediastinal or hilar lymph nodes present. The esophagus is unremarkable. BONES AND OVERLYING SOFT TISSUES: The visualized bones are without destructive lesions. No enlarged axillary lymph nodes present. VISUALIZED LOWER NECK :Unremarkable. IMPRESSION: Left lower lobe 7 mm pulmonary nodule. No priors exams available for comparison. Follow-up CT chest in 6-12 months recommended. COMPARISON: January 23, 2018 TECHNIQUE: Multiple axial CT images of the Abdomen and pelviswere obtained With IV contrast Oral contrast was administered. sagittal and coronal reconstructions were done. CT imaging was performed with iterative reconstruction technique and/or automated exposure control to reduce radiation dose. FINDINGS: HEPATOBILIARY: Hepatic metastases increased in number when compared to the prior exam. The largest mass measures approximately 3.6 cm in the right hepatic dome. No intrahepatic biliary dilation. The main portal vein is patent.. GALLBLADDER: Normal. SPLEEN: No splenomegaly. PANCREAS: No focal masses or ductal dilation. ADRENALS: No adrenal nodules. KIDNEYS: No stones, hydronephrosis, or solid mass.] Cyst stable. PERITONEUM/RETROPERITONEUM: Mildly worse in right renal adenopathy with a confluent lymph node measuring 1.5 cm in image 171 series 3. There is also increase of the retroperitoneal nodule on the left measuring 1.6 cm encasing a linear calcification or suture. No free air or free fluid. ABDOMINAL AORTA/IVC: No aneurysm or dissection. GI TRACT: Visualized portions of the bowel demonstrate no distention or wall thickening. There is appendicitis or diverticulitis. PELVIC ORGANS/BLADDER: There is persistent perirectal fluid and air measuring up to 1.6 cm in thickness around the perinephric fat. There is nodularity to the internal margin. The presacral mass measures 2.2 cm worse when compared to the prior exam. Small pelvic lymph nodes also worse measures up to 9 mm. Urinary bladder is fluid-filled. Small amount of air in urinary bladder should be correlated to recent catheterization. BONES AND SOFT TISSUES: No suspicious findings. IMPRESSION: Worsening hepatic and retroperitoneal metastases. Worsening metastatic adenopathy in the pelvis and perirectal nodularity. Perirectal air and fluid is concerning for persistent infection or leak. [id number] Performing Organization Address City/State/Zipcode Phone Number [facility] [address] [place] [address] Partial thromboplastin time, activated (02/14/2018 1:34 PM) PTT 30 22 - 34 sec [facility] Comment: This test has not been validated for monitoring unfractionated heparin therapy. For testing that is validated for this type of therapy, please refer to the Heparin Anti-Xa assay (test code 11638). For additional information, please refer to http://[employer].Quip/faq/VQT270 (This link is being provided for informational/educational purposes only.) Specimen Blood Narrative Performed At FASTING:NO QUEST FASTING: NO Resulting Agency Comment Performing Organization Information: Site ID: [facility] Name: [facility] Address: [address] [place] [phone] Director: Ivy Huddleston Performing Organization Address [facility] Phone Number [facility] [address] [address] Prothrombin time with INR (02/14/2018 1:34 PM) INR 1.1 [facility] Comment: Reference Range 0.9-1.1 Moderate-intensity Warfarin Therapy 2.0-3.0 Higher-intensity Warfarin Therapy 3.0-4.0 Prothrombin time 11.7 (H) 9.0 - 11.5 sec [facility] Comment: For more information on this test, go to: http://[employer]/faq/GXY875 Specimen Blood Narrative Performed At FASTING:NO QUEST FASTING: NO Resulting Agency Comment Performing Organization Information: Site ID: [facility] Name: [facility] Address: [address] [place] [id number] Director: Ivy Huddleston Performing Organization Address [facility] Phone Number [facility] [address] [address] Albumin level (02/06/2018 9:00 AM) Albumin 2.5 (L) 3.5 - 5.0 g/dL [facility] GENOMIC MEDICINE Specimen Plasma specimen Performing Organization Address City/[facility] Phone Number [facility]OLOGY AND [address] [place] [address] [facility] Surgical pathology request (01/30/2018 3:13 PM)Only the most recent of5 resultswithin the time period is included. [facility] PATHOLOGY AND GENOMIC MEDICINE Surgical pathology report See link below for PDF [facility] Lab Report PATHOLOGY AND GENOMIC MEDICINE Result status This is Final Report to [facility] DEPARTMENT OF [id number] PATHOLOGY AND GENOMIC MEDICINE Performing Organization Address [facility] Phone Number [facility] PATHOLOGY AND [address] [place] [address] GENOMIC MEDICINE Basic metabolic panel (01/24/2018 4:00 AM)Only the most recent of9 resultswithin the time period is included. Sodium 134 (L) 135 - 148 mEq/L [facility] GENOMIC MEDICINE Potassium 4.2 3.5 - 5.0 mEq/L [facility]IC[facility] Chloride 101 98 - 112 mEq/L [facility]OLOG[facility]OMIC MEDICINE CO2 20 (L) 24 - 31 mEq/L [facility]ICINE Anion gap 13@ANIO 7 - 15 mEq/L [facility]OMIC MEDICINE BUN 23 (H) 6 - 20 mg/dL [facility]IC[facility] Creatinine 1.2 0.7 - 1.2 mg/dL [facility]OLOGY [facility]IC [facility]ICINE Glucose 89 65 - 99 mg/dL [facility]OLOGY [facility]IC [facility]ICINE Calcium 9.0 8.3 - 10.2 mg/dL [facility] PATHOLOGY AND GENOMIC MEDICINE Specimen Plasma specimen Performing Organization Address City/[facility]/Zipcode Phone Number [facility] PATHOLOGY AND [address] [place], [place] [id number] [facility] Prepare RBC, 2 Units (01/23/2018 8:30 PM) Product name Red Cells AS1 Leukored Irrad [facility] PATHOLOGY AND GENOMIC MEDICINE Unit number [id number] [facility]OMIC MEDIC[facility] Product code [id number] [facility] GENOMIC MEDICINE Dispense status Transfused [facility] Blood expiration date [facility]IC[facility] Blood type code 9500 [facility] GENOMIC MEDICINE Blood type O NEGATIVE [facility]OLOGY AND GENOMIC MEDICINE Product name Red Blood Cells -1, [facility] PATHOLOGY AND GENOMIC MEDICINE Unit number [id number] [facility] GENOMIC MEDICINE Product code [id number] [facility] AND GENOMIC MEDICINE Dispense status Transfused [facility] GENOMIC MEDICINE Blood expiration date [id number] [facility] GENOMIC MEDICINE Blood type code 9500 [facility] AND GENOMIC MEDICINE Blood type O NEGATIVE [facility] PATHOLOGY AND GENOMIC MEDICINE Performing Organization Address City/[facility] Phone Number [facility] PATHOLOGY AND [address] [place], [place] [address] MEDICINE Type and screen (01/23/2018 8:30 PM)Only the most recent of2 resultswithin the time period is included. ABO grouping O [facility] GENOMIC MEDICINE Rh type NEG [facility] PATHOLOG[facility] GENOMIC MEDICINE Antibody screen (gel) NEG [facility] PATHOLOGY AND GENOMIC MEDICINE Specimen Blood Performing Organization Address [facility] Phone Number [facility] PATHOLOGY AND [address] [place], [place] [phone] [facility] CT Abdomen Pelvis Wo Contrast (01/23/2018 6:31 PM) Narrative Performed At EXAMINATION:CT ABDOMEN PELVIS WO CONTRAST [facility] CLINICAL HISTORY:Perirectal abscess infected hematomaAKI TECHNIQUE: Multiple axial images of the abdomen and pelvis were obtained without intravenous administration of iodinated contrast. Sagittal and coronal computerized reformatted images were also obtained. The lack of intravenous contrast reduces the sensitivity of detecting solid organ disease. COMPARISON:CT abdomen and pelvis 12/20/2017 FINDINGS: 1.The perirectal gas, stranding, and soft tissue thickening or fluid has significantly improved in the interval. Some residual soft tissue thickening or fluid in the presacral space currently measures 6.4 x 3.4 cm on image 146 of series 2. 2.There is a small bowel suture line in the midabdomen. An adjacent soft tissue somewhat ill-defined masslike infiltrate measuring 5.8 x 3.4 cm (series 2 image 69) is slightly more prominent in the interval. Assessment is limited without contrast. This could be inflammation. A small bowel partial resection specimen revealed no evidence of malignancy. Reassessment on short interval follow-up imaging is recommended. 3.There is no bowel obstruction. A diverting ileostomy is noted. Apparent thickening of the terminal ileum is nonspecific, could be underdistention. 4.The unenhanced liver, spleen, pancreas, gallbladder, and adrenals are unremarkable. 5.A right renal cyst is stable. There is no hydronephrosis or nephrolithiasis. Urinary bladder is unremarkable. 6.There are no suspicious lymph nodes. 7.A 7 mm left lower lobe pulmonary nodule is nonspecific and can be followed. 8.No significant skeletal abnormality is seen. IMPRESSION: Improving postoperative perirectal gas and fluid. Some remains. [id number] Procedure Note [facility], Radiology Results Incoming - 01/23/2018 7:03 PM CDT EXAMINATION: CT ABDOMEN PELVIS WO CONTRAST CLINICAL HISTORY: Perirectal abscess infected hematoma [facility]BI TECHNIQUE: Multiple axial images of the abdomen and pelvis were obtained without intravenous administration of iodinated contrast. Sagittal and coronal computerized reformatted images were also obtained. The lack of intravenous contrast reduces the sensitivity of detecting solid organ disease. COMPARISON: CT abdomen and pelvis 12/20/2017 FINDINGS: 1. The perirectal gas, stranding, and soft tissue thickening or fluid has significantly improved in the interval. Some residual soft tissue thickening or fluid in the presacral space currently measures 6.4 x 3.4 cm on image 146 of series 2. 2. There is a small bowel suture line in the midabdomen. An adjacent soft tissue somewhat ill-defined masslike infiltrate measuring 5.8 x 3.4 cm (series 2 image 69) is slightly more prominent in the interval. Assessment is limited without contrast. This could be inflammation. A small bowel partial resection specimen revealed no evidence of malignancy. Reassessment on short interval follow-up imaging is recommended. 3. There is no bowel obstruction. A diverting ileostomy is noted. Apparent thickening of the terminal ileum is nonspecific, could be underdistention. 4. The unenhanced liver, spleen, pancreas, gallbladder, and adrenals are unremarkable. 5. A right renal cyst is stable. There is no hydronephrosis or nephrolithiasis. Urinary bladder is unremarkable. 6. There are no suspicious lymph nodes. 7. A 7 mm left lower lobe pulmonary nodule is nonspecific and can be followed. 8. No significant skeletal abnormality is seen. IMPRESSION: Improving postoperative perirectal gas and fluid. Some remains. [id number] Performing Organization Address [facility] Phone Number [facility] [address] [place] [address] Gastrointestinal panel (01/23/2018 3:29 PM) Gastrointestinal panel Negative for all pathogens tested: [facility] Negative for Salmonella PATHOLOGY AND GENOMIC Negative for Campylobacter MEDICINE Negative for Diarrheagenic E coli/Shigella Negative for Shiga-like toxin-producing E coli Negative for Plesiomonas shigelloides Negative for Yersinia enterocolitica Negative for Vibrio species Negative for Clostridium difficile (Toxin A/B) Negative for Cryptosporidium Negative for Giardia lamblia Negative for Cyclospora cayeteanensis Negative for Entamoeba histolytica Negative for Adenovirus F 40/41 Negative for Astrovirus Negative for Norovirus GI/GII Negative for Rotavirus A Negative for Sapovirus Negative for Clostridium difficile toxin Negative for E coli 0157 This real-time PCR assay detects the presence of nucleic acids (RNA or DNA) for the gastrointestinal pathogens listed. A result of "Not-detected" does not exclude the possibility of the presence of one or more pathogens at concentrations less than the detectable limits of the assay. Comment: Specimen Information Specimen Source: Stool Specimen Site: Nonpreserved Specimen Stool - Nonpreserved Performing Organization Address [facility] Phone Number [facility] PATHOLOGY AND [address] [place] [phone] [facility] Urinalysis screen and microscopy, with reflex to culture (01/23/2018 2:35 PM) Only the most recent of5 resultswithin the time period is included. Specimen site Midstream [facility] PATHOLOGY AND GENOMIC MEDICINE Color, UA Yellow [facility] PATHOLOGY AND GENOMIC MEDICINE Appearance, UA Hazy [facility] PATHOLOGY AND GENOMIC MEDICINE Specific gravity, UA 1.019 1.001 - 1.035 [facility] PATHOLOGY AND GENOMIC MEDICINE pH, UA 5.0 5.0 - 8.5 [facility] PATHOLOGY AND GENOMIC MEDICINE Protein, UA Negative Negative [facility] PATHOLOGY AND GENOMIC MEDICINE Glucose, UA Negative Negative [facility] PATHOLOGY AND GENOMIC MEDICINE Ketones, UA Negative Negative [facility] PATHOLOGY AND GENOMIC MEDICINE Bilirubin, UA Negative Negative [facility] PATHOLOGY AND GENOMIC MEDICINE Blood, UA Negative Negative [facility] PATHOLOGY AND GENOMIC MEDICINE Nitrite, UA Negative Negative [facility] PATHOLOGY AND GENOMIC MEDICINE Urobilinogen, UA <2.0 <2.0 [facility] PATHOLOGY AND GENOMIC MEDICINE Leukocyte esterase, UA Negative Negative [facility] PATHOLOGY AND GENOMIC MEDICINE Epithelial cells, UA <1 /HPF [facility] PATHOLOGY AND GENOMIC MEDICINE WBC, UA 1 0 - 1 /HPF [facility] PATHOLOGY AND GENOMIC MEDICINE RBC, UA <1 0 - 5 /HPF [facility] PATHOLOGY AND GENOMIC MEDICINE Bacteria, UA Few None seen [facility] PATHOLOGY AND GENOMIC MEDICINE Yeast, UA None seen [facility] PATHOLOGY AND GENOMIC MEDICINE Yeast with pseudohyphae, UA None seen [facility] PATHOLOGY AND GENOMIC MEDICINE Uric acid crystals, UA Few [facility] PATHOLOGY AND GENOMIC MEDICINE Hyaline casts, UA 1 /LPF [facility] OF PATHOLOGY AND GENOMIC MEDICINE Specimen Urine Performing Organization Address [facility] Phone Number [facility] OF PATHOLOGY AND [address] [place] [address] Urine culture (01/23/2018 2:35 PM)Only the most recent of5 resultswithin the time period is included. Urine culture SEE COMMENTComment: Bacteriuria [facility]MENT OF PATHOLOGY screen negative. AND GENOMIC MEDICINE Performing Organization Address City/[facility] Phone Number [facility] OF PATHOLOGY AND [address] [place] [phone] [place] [address] Urine eosinophils (01/23/2018 5:20 AM)Only the most recent of2 resultswithin the time period is included. Eosinophils, urine NONE [facility] PATHOLOGY AND GENOMIC MEDICINE Specimen Urine Performing Organization Address City/[facility] Phone Number [facility] PATHOLOGY AND [address] [place] [phone] [place] [address] Urea nitrogen, urine, random (01/23/2018 5:20 AM) Urea nitrogen, urine, random 858 mg/dL [facility] OF PATHOLOGY AND GENOMIC MEDICINE Specimen Urine Performing Organization Address [facility] Phone Number [facility] OF PATHOLOGY AND [address] [place] [phone] [place] [address] Sodium level, urine, random (01/23/2018 5:20 AM)Only the most recent of2 resultswithin the time period is included. Sodium, urine, random <20 mEq/L [facility] PATHOLOGY AND GENOMIC MEDICINE Specimen Urine Performing Organization Address City/[facility] Phone Number [facility] OF PATHOLOGY AND [address] [place] [address] MEDICINE Protein, urine, random (01/23/2018 5:20 AM) Protein, urine random 25 mg/dL [facility] PATHOLOGY AND GENOMIC MEDICINE Specimen Urine Performing Organization Address [facility] Phone Number [facility] OF PATHOLOGY AND [address] [place] [address] Osmolality, urine (01/23/2018 5:20 AM) Osmolality, urine 517 50 - 1,400 mOsm/kg [facility] PATHOLOGY AND GENOMIC MEDICINE Specimen Urine Performing Organization Address [facility] Phone Number [facility] OF PATHOLOGY AND [address] [place] [address] Creatinine level, urine, random (01/23/2018 5:20 AM)Only the most recent of2 resultswithin the time period is included. Creatinine, urine, random 152 mg/dL [facility] PATHOLOGY AND GENOMIC MEDICINE Specimen Urine Performing Organization Address [facility] Phone Number [facility] OF PATHOLOGY AND [address] [place] [address] Chloride level, urine, random (01/23/2018 5:20 AM) Chloride, urine, random 47 mEq/L [facility] OF PATHOLOGY AND GENOMIC MEDICINE Specimen Urine Performing Organization Address [facility] Phone Number [facility] PATHOLOGY AND [address] [place] [address] XR Chest 1 Vw Portable (01/22/2018 8:26 PM)Only the most recent of3 resultswithin the time period is included. Narrative Performed At EXAMINATION:XR CHEST 1 VW PORTABLE [facility] CLINICAL HISTORY: Fever COMPARISON:12/10/2017 IMPRESSION: No radiographic evidence for acute cardiopulmonary process. Cardiomediastinal silhouette is within normal limits of size. No focal or confluent airspace consolidation is seen on the single AP view to suggest acute pneumonia. No sizable pleural effusion. No pneumothorax identified. No acute osseous abnormalities are visualized. [id number] Procedure Note [facility], Radiology Results Incoming - 01/22/2018 8:31 PM CDT EXAMINATION: XR CHEST 1 VW PORTABLE CLINICAL HISTORY: Fever COMPARISON: 12/10/2017 IMPRESSION: No radiographic evidence for acute cardiopulmonary process. Cardiomediastinal silhouette is within normal limits of size. No focal or confluent airspace consolidation is seen on the single AP view to suggest acute pneumonia. No sizable pleural effusion. No pneumothorax identified. No acute osseous abnormalities are visualized. [id number] Performing Organization Address City/[facility] Phone Number [facility] [address] [place] [address] Blood culture, aerobic & anaerobic (01/22/2018 8:00 PM)Only the most recent of4 resultswithin the time period is included. Blood culture isolate No growth after 5 days of incubation. [facility] OF Comment: PATHOLOGY AND GENOMIC Specimen Information MEDICINE Specimen Source: Blood Specimen Site: Forearm, left Specimen Blood - Forearm, left Performing Organization Address City/[facility] Phone Number [facility]MENT OF PATHOLOGY AND [address] [place] [address] Renal Stone Protocol (12/20/2017 10:59 PM) Narrative Performed At EXAMINATION: CT ABDOMEN PELVIS WITHOUT [facility] COMPARISON: CT abdomen 12-09-17. REASON FOR EXAM: abdominal pains p colectomy and ileostomy 2 weeks ago for rectal cancer. TECHNIQUE: Axial 5 mm sections were obtained after intravenous injection of contrast. Coronal and sagittal reconstructions were performed. All CT scans are performed using radiation dose reduction techniques. Technical factors are evaluated and adjusted to ensure appropriate moderation of exposure. Automated dose management technology is supplied to adjust the radiation dose to minimize exposure while achieving a diagnostic quality image. FINDINGS: Lower lung gaona: The lower lung gaona are clear. Liver: liver Biliary: The gallbladder small and contracted. Spleen: Spleen is normal in size. Pancreas: Pancreas size and lobulation is normal. Adrenals: The adrenal glands are normal in size. Kidneys: There is no hydronephrosis. There are no renal calculi. A 4.3 cm simple renal cyst is located in the right kidney cortex. Lymph nodes: No retroperitonealadenopathy Vascular: Aorta and venacava diameters are normal. G.I. There is hernia mesh in the anterior abdominal wall. There has been colon resection with diverting loop ileostomy and small bowel resection. Pelvis: There is a Camilo catheter in a decompressed urinary bladder. Skeletal: There are bilateral pars defects with no spondylolisthesis at L5-S1. IMPRESSION: 1.hypodense lesions in the periphery of the right lobe of the liver and caudate lobe are suspicious for metastasis. 2. Status post anterior resection for rectal cancer. 3. Right lower quadrant ileostomy. 4. There is air-fluid level in the posterior distal presacral surgical bed where there has been removal or resolution of a hematoma described on the prior CT scan. 5. Small bowel obstruction described on the prior CT scan has improved. 6. Free air present on the previous CT scan has resolved. [id number] Procedure Note [facility], Radiology Results - 12/20/2017 11:30 PM CDT EXAMINATION: CT ABDOMEN PELVIS WITHOUT COMPARISON: CT abdomen 12-09-17. REASON FOR EXAM: abdominal pain s p colectomy and ileostomy 2 weeks ago for rectal cancer. TECHNIQUE: Axial 5 mm sections were obtained after intravenous injection of contrast. Coronal and sagittal reconstructions were performed. All CT scans are performed using radiation dose reduction techniques. Technical factors are evaluated and adjusted to ensure appropriate moderation of exposure. Automated dose management technology is supplied to adjust the radiation dose to minimize exposure while achieving a diagnostic quality image. FINDINGS: Lower lung gaona: The lower lung gaona are clear. Liver: liver Biliary: The gallbladder small and contracted. Spleen: Spleen is normal in size. Pancreas: Pancreas size and lobulation is normal. Adrenals: The adrenal glands are normal in size. Kidneys: There is no hydronephrosis. There are no renal calculi. A 4.3 cm simple renal cyst is located in the right kidney cortex. Lymph nodes: No retroperitonealadenopathy Vascular: Aorta and venacava diameters are normal. G.I. There is hernia mesh in the anterior abdominal wall. There has been colon resection with diverting loop ileostomy and small bowel resection. Pelvis: There is a Camilo catheter in a decompressed urinary bladder. Skeletal: There are bilateral pars defects with no spondylolisthesis at L5-S1. IMPRESSION: 1. hypodense lesions in the periphery of the right lobe of the liver and caudate lobe are suspicious for metastasis. 2. Status post anterior resection for rectal cancer. 3. Right lower quadrant ileostomy. 4. There is air-fluid level in the posterior distal presacral surgical bed where there has been removal or resolution of a hematoma described on the prior CT scan. 5. Small bowel obstruction described on the prior CT scan has improved. 6. Free air present on the previous CT scan has resolved. [id number] Performing Organization Address City/State/Zipcode Phone Number [facility] [address] [place] [address] Gram stain (12/20/2017 8:45 PM)Only the most recent of3 resultswithin the time period is included. Gram stain result Occasional WBC's [facility] Rare Gram positive cocci in pairs AND [facility] Few Gram negative rods Comment: Specimen Information Specimen Source: Urine Specimen Site: Catheterized Specimen Urine - Catheterized Performing Organization Address City[facility] Phone Number [facility] [address] [place] [id number] Abdomen Pelvis W Contrast (12/09/2017 10:10 PM) Narrative Performed At EXAMINATION:CT ABDOMEN PELVIS W CONTRAST [facility] CLINICAL HISTORY:ABDOMINAL DISTENSION TECHNIQUE: Multiple axial images of the abdomen and pelvis were obtained following intravenous administration of iodinated contrast. CT imaging was performed with iterative reconstruction technique and/or automated exposure control to reduce radiation dose. COMPARISON:MRI of the pelvis dated 08/06/2017 IMPRESSION: ABDOMEN: 1. Liver: There are 2 and possibly 3 vague small hypodensities in the right lobe of the liver seen on series 2 image 26, 36 and 58 that are indeterminant although concerning for metastatic disease. MRI of the abdomen with and without gadolinium contrast can be performed. There is fatty infiltration of the liver. 2. Gallbladder: The gallbladder is normal. 3. Spleen: The spleen is not enlarged. 4. Pancreas: The pancreas is unremarkable. 5. Adrenal Glands: The adrenal glands are unremarkable. 6. Kidneys: The kidneys are unremarkable except for 4.6 cm cyst in the right kidney.. No mass, hydronephrosis or calculi. 7. Abdominal Aorta: The abdominal aorta is nonaneurysmal. 8. Nodes: No enlarged retroperitoneal or mesenteric lymphadenopathy. 9. Bowel: *Status post recent low anterior resection for rectal cancer. *Markedly dilated fluid-filled stomach with moderately dilated loops of small bowel and decompressed ileal loops compatible with a high-grade mechanical small bowel obstruction. *Right lower quadrant ileostomy. Intra-abdominal wall hernia repair with mesh and ryan. No recurrent hernia. *There is ill-defined hemorrhage and postsurgical changes in the pelvis with 8 x 5 cm deep pelvic perirectal and left perirectal multiloculated complex fluid collection with air and hyperdense fluid. Findings can be seen with an infected hematoma. Anastomotic breakdown cannot be excluded. 10. Ascites: Deep pelvic complex fluid, hemorrhage and multiloculated fluid collection that may represent an infected hematoma. PELVIS: 1.Pelvis: Status post low anterior resection. Camilo catheter in the bladder. 2. Bones: Degenerative changes of the osseous structures. No suspicious lesions. 3. Lung Bases: Minimal atelectasis at the right lung base. SUMMARY: 1. Status post interval low anterior resection with complex multiloculated deep pelvic perirectal and left pararectal abscess or infected hematoma. 2.Small amount of free air in the abdomen may be postsurgical or related to anastomotic breakdown in the pelvis. 3.Moderate to high-grade small bowel obstruction. Right lower quadrant ileostomy. Anterior abdominal wall hernia repair. 4.Fatty infiltration of the liver. There are indeterminate lesions in liver that may represent metastatic disease. MRI of the abdomen recommended when clinically feasible. 5. Findings were discussed with nurse Edison at 12/09/2017 10:41 PM who verbalized understanding. [id number] Procedure Note [facility], Radiology Results Incoming - 12/09/2017 10:45 PM CDT EXAMINATION: CT ABDOMEN PELVIS W CONTRAST CLINICAL HISTORY: ABDOMINAL DISTENSION TECHNIQUE: Multiple axial images of the abdomen and pelvis were obtained following intravenous administration of iodinated contrast. CT imaging was performed with iterative reconstruction technique and/or automated exposure control to reduce radiation dose. COMPARISON: MRI of the pelvis dated 08/06/2017 IMPRESSION: ABDOMEN: 1. Liver: There are 2 and possibly 3 vague small hypodensities in the right lobe of the liver seen on series 2 image 26, 36 and 58 that are indeterminant although concerning for metastatic disease. MRI of the abdomen with and without gadolinium contrast can be performed. There is fatty infiltration of the liver. 2. Gallbladder: The gallbladder is normal. 3. Spleen: The spleen is not enlarged. 4. Pancreas: The pancreas is unremarkable. 5. Adrenal Glands: The adrenal glands are unremarkable. 6. Kidneys: The kidneys are unremarkable except for 4.6 cm cyst in the right kidney.. No mass, hydronephrosis or calculi. 7. Abdominal Aorta: The abdominal aorta is nonaneurysmal. 8. Nodes: No enlarged retroperitoneal or mesenteric lymphadenopathy. 9. Bowel: * Status post recent low anterior resection for rectal cancer. * Markedly dilated fluid-filled stomach with moderately dilated loops of small bowel and decompressed ileal loops compatible with a high-grade mechanical small bowel obstruction. * Right lower quadrant ileostomy. Intra-abdominal wall hernia repair with mesh and ryan. No recurrent hernia. * There is ill-defined hemorrhage and postsurgical changes in the pelvis with 8 x 5 cm deep pelvic perirectal and left perirectal multiloculated complex fluid collection with air and hyperdense fluid. Findings can be seen with an infected hematoma. Anastomotic breakdown cannot be excluded. 10. Ascites: Deep pelvic complex fluid, hemorrhage and multiloculated fluid collection that may represent an infected hematoma. PELVIS: 1. Pelvis: Status post low anterior resection. Camilo catheter in the bladder. 2. Bones: Degenerative changes of the osseous structures. No suspicious lesions. 3. Lung Bases: Minimal atelectasis at the right lung base. SUMMARY: 1. Status post interval low anterior resection with complex multiloculated deep pelvic perirectal and left pararectal abscess or infected hematoma. 2. Small amount of free air in the abdomen may be postsurgical or related to anastomotic breakdown in the pelvis. 3. Moderate to high-grade small bowel obstruction. Right lower quadrant ileostomy. Anterior abdominal wall hernia repair. 4. Fatty infiltration of the liver. There are indeterminate lesions in liver that may represent metastatic disease. MRI of the abdomen recommended when clinically feasible. 5. Findings were discussed with nurse Hogan at 12/09/2017 10:41 PM who verbalized understanding. [id number] Performing Organization Address City/State/Zipcode Phone Number [facility] [address] [place] [address] POC glucose (12/06/2017 4:27 PM) POC glucose 149 (H) 65 - 99 mg/dL [facility] Comment: [facility] Notified RN Meter ID: [id number] Geomorphology Teacher: Tessa Grimes Performing Organization Address City/State/Zipcode Phone Number [facility] AND [address] [place] [phone] [facility] XR Abdomen 1 Vw Portable (12/06/2017 4:40 AM) Narrative Performed At EXAMINATION:XR ABDOMEN 1 VW PORTABLE [facility] CLINICAL HISTORY:Vomiting COMPARISON:None. IMPRESSION: Gaseous distention of few small bowel loops. There is some paucity of distal colonic content. Findings represent possible small bowel obstruction. Mesh clips project over the abdomen. Upper quadrant clips are noted. Regional skeletal structures are within normal limits. [id number] Procedure Note Interface, Radiology Results Incoming - 12/06/2017 5:10 AM CDT EXAMINATION: XR ABDOMEN 1 VW PORTABLE CLINICAL HISTORY: Vomiting COMPARISON: None. IMPRESSION: Gaseous distention of few small bowel loops. There is some paucity of distal colonic content. Findings represent possible small bowel obstruction. Mesh clips project over the abdomen. Upper quadrant clips are noted. Regional skeletal structures are within normal limits. [id number] Performing Organization Address City/State/Zipcode Phone Number [facility] [address] [place] [address] US Renal (12/05/2017 4:39 PM) Narrative Performed At PROCEDURE:US RENAL [facility] CLINICAL HISTORY:Elevated abnormal renal function tests COMPARISON:None. TECHNIQUE: Multiple echo tomograms were performed in the sagittal and transverse orientations of the right and left kidney. Color-flow and spectral pulse wave Doppler interrogation was also performed of the arterial system in both kidneys with calculation of resistive indices. The bladder was also interrogated.. FINDINGS: The renal parenchymal echogenicity is normal relative to the adjacent solid organs and relative to the renal sinus. The renal parenchymal thickness is preserved. No hydronephrosis, perinephric fluid collections, solid masses, or abnormal posterior acoustic shadowing is demonstrated from either kidney. A right upper pole simple cortical cyst is present measuring 4 cm x 3.7 cm x 4.9 cm The right kidney [id number] cmLENGTH X8.2 cm AP. The right renal parenchymal thickness measures 1.8 cm. The left kidney [id number] cm LENGTH X 5.8 cm AP. The left renal parenchymal thickness measures 1.6 cm. Color flowDoppler confirm arterial flow to both kidneys. The bladder at presentation 6.2 cm x 11.9 cm x 9.3 cm for volume of 310 mL. IMPRESSION: Abnormal study. No evidence of obstructive uropathy. Right renal cortical simple cyst. [id number] . Procedure Note [facility], Radiology Results Incoming - 12/05/2017 5:22 PM CDT PROCEDURE: US RENAL CLINICAL HISTORY: Elevated abnormal renal function tests COMPARISON: None. TECHNIQUE: Multiple echo tomograms were performed in the sagittal and transverse orientations of the right and left kidney. Color-flow and spectral pulse wave Doppler interrogation was also performed of the arterial system in both kidneys with calculation of resistive indices. The bladder was also interrogated.. FINDINGS: The renal parenchymal echogenicity is normal relative to the adjacent solid organs and relative to the renal sinus. The renal parenchymal thickness is preserved. No hydronephrosis, perinephric fluid collections, solid masses, or abnormal posterior acoustic shadowing is demonstrated from either kidney. A right upper pole simple cortical cyst is present measuring 4 cm x 3.7 cm x 4.9 cm The right kidney measures 13.9 cm LENGTH X 8.2 cm AP. The right renal parenchymal thickness measures 1.8 cm. The left kidney measures 13.2 cm LENGTH X 5.8 cm AP. The left renal parenchymal thickness measures 1.6 cm. Color flow Doppler confirm arterial flow to both kidneys. The bladder at presentation 6.2 cm x 11.9 cm x 9.3 cm for volume of 310 mL. IMPRESSION: Abnormal study. No evidence of obstructive uropathy. Right renal cortical simple cyst. [id number] . Performing Organization Address City/State/[facility] Phone Number [facility] [address] [place] [address] MRI Pelvis W Wo Contrast (08/06/2017 1:40 PM) Narrative Performed At EXAMINATION:MRI PELVIS W WO [facility] CLINICAL [facility]:C20 Malignant neoplasm of rectum, RECTAL CANCER, rectal cancer TECHNIQUE: Multiplanar multisequence MR images of the pelvis were obtained pre- and post intravenous administration of 10 cc of Gadavist. COMPARISON:None. FINDINGS: Lobulated circumferential mural one third rectal tumor is seen measuring approximately 7 cm in length. The tumor is extending beyond the muscularis propria and invading the left posterior mesorectal fascia for approximately 1.2 cm. Multiple lymph nodes are also seen around the rectum within the mesorectal fascia. The largest left superior rectal node measures approximately 1.7 cm. No pelvic sidewall invasion is seen. There is no evidence of invasion of the urinary bladder or prostate gland. There is no evidence of vascular invasion. There is no evidence of ascites. Regional bone marrow is unremarkable. IMPRESSION: Findings suggestive of stage IIIB middle one third rectal cancer [id number] Procedure Note Hm Interface, Radiology Results Incoming - 08/06/2017 6:18 PM MANAGER RESEARCH DEVELOPMENT EXAMINATION: MRI PELVIS W WO CONTRAST CLINICAL HISTORY: C20 Malignant neoplasm of rectum, RECTAL CANCER, rectal cancer TECHNIQUE: Multiplanar multisequence MR images of the pelvis were obtained pre - and post intravenous administration of 10 cc of Gadavist. COMPARISON: None. FINDINGS: Lobulated circumferential mural one third rectal tumor is seen measuring approximately 7 cm in length. The tumor is extending beyond the muscularis propria and invading the left posterior mesorectal fascia for approximately 1.2 cm. Multiple lymph nodes are also seen around the rectum within the mesorectal fascia. The largest left superior rectal node measures approximately 1.7 cm. No pelvic sidewall invasion is seen. There is no evidence of invasion of the urinary bladder or prostate gland. There is no evidence of vascular invasion. There is no evidence of ascites. Regional bone marrow is unremarkable. IMPRESSION: Findings suggestive of stage IIIB middle one third rectal cancer [id number] Performing Organization Address City/State/Zipcode Phone Number [facility] [address] [place] [address] after 04/20/2017 Insurance Payer Benefit Plan / Group Subscriber ID Type Phone Address AETNA AETNA HMO,POS,EPO, MC/EC xxxxxxxxx HMO [phone] [place], [place] [id number]
[2018-04-21] MEDS ORDERED: NA CHLORIDE 0.9% 1,000 ML ONE ×3 (16:23→18:52)
[2018-04-21] MEDS ORDERED: ONDANSETRON 4 MG/2 ML VIAL ONE (17:04)
[2018-04-21] MEDS ORDERED: FENTANYL CITR 100 MCG/2 ML ONE ×2 (17:04→17:59)
[2018-04-21 17:12] LABS: Protime INR 1.28
--- NOTE | 2018-04-21 17:13 | RAD REPORT ---
EXAM DESCRIPTION: Randy Single View04/21/2018 5:08 pm CLINICAL HISTORY: cough COMPARISON: July 2017 FINDINGS: The lungs appear clear of acute infiltrate. The heart is normal size. A central venous line has its tip in the superior vena cava IMPRESSION: No acute abnormalities displayed
[2018-04-21 17:22] LABS: Absolute Lymphocytes (CBC) 0.8 K/uL (0.7-4.9); Absolute Monocytes 1.9 K/uL (0.1-1.3); Absolute Neutrophil 4.9 K/uL (1.8-8.0); Basophils % 0.1 % (0-1.3); Eosinophils % 0.6 % (0-4.4); Hematocrit 27.6 % (39.6-49.0); Lymphocytes % 9.9 % (15.3-44.8); MCH 29.2 pg (27.0-35.0); MCV 87.6 fL (80-100); Monocytes % 25.3 % (3.3-12.3); RBC Red Blood Cell Count 3.15 M/uL (4.33-5.43)
[2018-04-21 17:41] LABS: ALT/SGPT 14 U/L (12-78); AST/SGOT 17 U/L (15-37); Albumin 2.9 g/dL (3.4-5.0); Alkaline Phosphatase 66 U/L (45-117); BUN Blood Urea Nitrogen 64 mg/dL (7-18); Bicarbonate 29 mmol/L (21-32); Bilirubin Direct 0.2 mg/dL (0-0.2); Bilirubin Total 0.6 mg/dL (0.2-1.0); CKMB Creatine Kinase MB < 1.0 ng/mL (0.3-3.6); Creatine Phosphokinase 30 U/L (39-308); Glucose Level 123 mg/dL (74-106); Lipase 120 U/L (73-393); Magnesium 2.6 mg/dL (1.8-2.4); NT PRO-BNP 300 pg/mL (<125); Potassium 3.4 mmol/L (3.5-5.1); Protein, Total 8.7 g/dL (6.4-8.2); Sodium Level 126 mmol/L (136-145)
--- NOTE | 2018-04-21 18:08 | ER ---
Nurse's Notes [facility] Name: Erlinda Lacey Age: 58 yrs Sex: Male : 1960 Arrival Date: 04/21/2018 Time: 15:52 Bed 8 Private MD: Diagnosis: Abdominal tenderness;Weakness;Anemia, unspecified;Unspecified kidney failure;Colostomy status Presentation: 04/21 15:52 Presenting complaint: Patient states: I am getting chemo for colorectal CA and am on my la1 third round, had surgery december 03. For the last 3 days I have been having nausea and decreased appetite as well as weakness. Transition of care: patient was not received from another setting of care. Onset of symptoms was April 21, 2018. Risk Assessment: Do you want to hurt yourself or someone else? Patient reports no desire to harm self or others. Initial Sepsis Screen: Does the patient meet any 2 criteria? No. Patient's initial sepsis screen is negative. Does the patient have a suspected source of infection? No. Patient's initial sepsis screen is negative. Care prior to arrival: None. 15:52 Method Of Arrival: Ambulatory la1 15:52 Acuity: ANDREA 3 la1 Historical: - Allergies: 15:56 No Known Allergies; la1 - Home Meds: 15:56 capecitabine 500 mg oral tab three tabs daily in the morning and four tabs at night la1 [Active]; tamsulosin 0.4 mg oral cp24 1 cap once daily [Active]; [place] 10-325 mg Oral tab 1 tab every 6 hours [Active]; pantoprazole 40 mg oral TbEC 1 tab once daily [Active]; - PMHx: 15:56 colorectal CA; la1 - PSHx: 15:56 colorectal sx with ostomy; la1 - Immunization history:: Adult Immunizations up to date. - Social history:: Smoking status: Patient/guardian denies using tobacco. - Ebola Screening: : No symptoms or risks identified at this time. - Family history:: not pertinent. Screenin:07 Abuse screen: Denies threats or abuse. Nutritional screening: Has had N/V for 3 or more la1 days. Tuberculosis screening: No symptoms or risk factors identified. Fall Risk None identified. Assessment: 16:53 General: Appears comfortable, Behavior is calm, cooperative. Pain: Complains of pain in la1 left lower quadrant Pain currently is 5 out of 10 on a pain scale. Neuro: Level of Consciousness is awake, alert, obeys commands, Oriented to person, place, time, situation. Cardiovascular: Heart tones S1 S2 present Capillary refill < 3 seconds Patient's skin is warm and dry. Respiratory: Airway is patent Respiratory effort is even, unlabored, Respiratory pattern is regular, symmetrical, Breath sounds are clear bilaterally. GI: Abdomen is round non-distended, Colostomy site is clean and dry. Ostomy appliance is intact. Bowel sounds present X 4 quads. Abd is soft X 4 quads Reports lower abdominal pain, nausea, Patient currently denies diarrhea, vomiting. : No signs and/or symptoms were reported regarding the genitourinary system. Musculoskeletal: Circulation, motion, and sensation intact. Capillary refill < 3 seconds, Range of motion: intact in all extremities. 19:10 General: Appears comfortable, Behavior is calm, cooperative. Pain: Complains of pain in ea left lower quadrant Pain currently is 2 out of 10 on a pain scale. Neuro: Level of Consciousness is awake, alert, obeys commands, Oriented to person, place, time, situation. Cardiovascular: Heart tones S1 S2 present Patient's skin is warm and dry. Respiratory: Airway is patent Respiratory effort is even, unlabored, Respiratory pattern is regular, symmetrical, Breath sounds are clear bilaterally. GI: Abdomen is non-distended, Colostomy site is clean and dry. Ostomy appliance is intact. Bowel sounds present X 4 quads. Abd is soft X 4 quads Reports lower abdominal pain. : No signs and/or symptoms were reported regarding the genitourinary system. Musculoskeletal: Circulation, motion, and sensation intact. 20:27 Reassessment: Patient and/or family updated on plan of care and expected duration. Pain ea level reassessed. Patient is alert, oriented x 3, equal unlabored respirations, skin warm/dry/pink. Family at bedside. 20:49 Reassessment: Report called to Patricia CARBAJAL at [facility]. ea 21:11 Reassessment: Patient and/or family updated on plan of care and expected duration. Pain ea level reassessed. Patient is alert, oriented x 3, equal unlabored respirations, skin warm/dry/pink. [facility] at facility for transfer. Vital Signs: 15:56 BP 104 / 71; Pulse 109; Resp 19; Temp 99.0(O); Pulse Ox 99% on R/A; Weight 94.35 kg; la1 Height 6 ft. 2 in. (187.96 cm); 16:08 BP 94 / 70; Pulse 102; la1 17:14 BP 105 / 70; Pulse 93; Resp 16; Pulse Ox 100% on R/A; la1 17:31 BP 112 / 80; Pulse 82; Resp 16; Pulse Ox 98% on R/A; la1 18:42 BP 120 / 80; Pulse 86; Resp 16; Pulse Ox 99% on R/A; la1 19:12 BP 113 / 72; Pulse 60; Resp 18; Pulse Ox 98% ; ea 20:51 BP 115 / 76; Pulse 85; Resp 18; Temp 98.7(O); Pulse Ox 98% ; Pain 4/10; ea 15:56 Body Mass Index 26.71 (94.35 kg, 187.96 cm) la1 ED Course: 15:52 Patient arrived in ED. la1 15:53 Triage completed. la1 15:57 Arm band placed on left wrist. la1 16:07 Fredy Yu, RN is Primary Nurse. la1 16:08 Bed in low position. Call light in reach. Side rails up X 1. electronic device monitor on. Pulse la1 ox on. NIBP on. 16:15 Dylan Shah MD is Attending Physician. ewelina 17:02 XRAY Chest (1 view) In Process Unspecified. EDMS 17:02 X-ray completed. Portable x-ray completed in exam room. Patient tolerated procedure kw well. 17:04 EKG done, by dairy technician. reviewed by Dylan Shah MD. dt2 17:07 Oral contrast given. jg1 19:[address] via stretcher. nj 19:22 Abdomen In Process Unspecified. EDMS 19:23 CT completed. Patient moved back from CT. vm2 21:11 No provider procedures requiring assistance completed. Patient transferred, IV remains ea in place. Administered Medications: 16:40 Drug: NS 0.9% 1000 ml Route: IV; Rate: 1 bolus; Site: Port-a-cath; la1 17:28 Follow up: IV Status: Completed infusion la1 17:14 Drug: NS 0.9% 1000 ml Route: IV; Rate: 1 bolus; Site: Port-a-cath; la1 18:42 Follow up: IV Status: Completed infusion la1 17:14 Drug: fentaNYL (PF) 25 mcg Route: IVP; Site: Port-a-cath; la1 18:01 Follow up: Response: No adverse reaction; Pain is decreased la1 17:14 Drug: Zofran 4 mg Route: IVP; Site: Port-a-cath; la1 18:01 Follow up: Response: No adverse reaction la1 18:00 Drug: fentaNYL (PF) 25 mcg Route: IVP; Site: Port-a-cath; la1 18:01 Follow up: Response: No adverse reaction; Pain is decreased la1 18:45 Drug: morphine 4 mg Route: IVP; Site: Port-a-cath; jb4 19:14 Follow up: Response: No adverse reaction; Pain is decreased ea 18:54 Drug: Cipro 400 mg Volume: 200 ml; Route: IVPB; Infused Over: 60 mins; Site: la1 Port-a-cath; 20:09 Follow up: IV Status: Completed infusion bp 20:00 Drug: Flagyl 500 mg Volume: 100 ml; Route: IVPB; Rate: 200 ml/hr; Infused Over: 30 bp mins; Site: left antecubital; 21:10 Follow up: Response: No adverse reaction; IV Status: Infusion continued upon transfer ea 21:10 Drug: morphine 4 mg Route: IVP; Site: Port-a-cath; ea 21:10 Follow up: Response: No adverse reaction; No adverse reaction, medication adminsitered ea at transfer. Outcome: 18:07 ER care complete, transfer ordered by MD. theodore 21:12 Transferred by ground EMS to [facility], Transfer form completed. ea 21:12 Condition: stable 21:12 Instructed on the need for transfer. 21:22 Patient left the ED. ea Signatures: Dispatcher [employer] EDMS Dylan Shah MD MD cha Garcia, Jessica jg1 Whitley, Kimberlee kw Attema, Lee RN RN la1 Stanislaw Berger RN RN jb4 Silverio Brown Victoria vm2 Antunez, Elena, RN RN ea Peltier, Brian, RN RN bp Teague, Danielle dt2 Corrections: (The following items were deleted from the chart) 17:16 16:53 Pain: Complains of pain in abdomen la1 la1 17:16 16:53 GI: Abdomen is round non-distended, Colostomy site is clean and dry. Ostomy la1 appliance is intact. Bowel sounds present X 4 quads. Reports nausea, Patient currently denies diarrhea, vomiting, la1
--- NOTE | 2018-04-21 18:08 | EDPHYS ---
Physician Documentation [facility] Name: Erlinda Lacey Age: 58 yrs Sex: Male : 1960 Arrival Date: 04/21/2018 Time: 15:52 Bed 8 Private MD: ED Physician Dylan Shah HPI: 04/21 18:01 This 58 yrs old Male presents to ER via Ambulatory with complaints of General ewelina Weakness. 18:01 The patient presents with abdominal pain. Onset: The symptoms/episode began/occurred 3 ewelina day(s) ago. The patient presents to the emergency department with nausea, abdominal pain, of the left lower quadrant. Onset: The symptoms/episode began/occurred 3 day(s) ago. Possible causes: bowel obstruction. The symptoms are aggravated by movement, pressure, food . colostomt, colon cancer, on chemo. Associated signs and symptoms: Pertinent positives: abdominal pain, nausea. Historical: - Allergies: 15:56 No Known Allergies; la1 - Home Meds: 15:56 capecitabine 500 mg oral tab three tabs daily in the morning and four tabs at night la1 [Active]; tamsulosin 0.4 mg oral cp24 1 cap once daily [Active]; [place] 10-325 mg Oral tab 1 tab every 6 hours [Active]; pantoprazole 40 mg oral TbEC 1 tab once daily [Active]; - PMHx: 15:56 colorectal CA; la1 - PSHx: 15:56 colorectal sx with ostomy; la1 - Immunization history:: Adult Immunizations up to date. - Social history:: Smoking status: Patient/guardian denies using tobacco. - Ebola Screening: : No symptoms or risks identified at this time. - Family history:: not pertinent. ROS: 18:01 Constitutional: Negative for fever, chills, and weight loss, Eyes: Negative for injury, ewelina pain, redness, and discharge, ENT: Negative for injury, pain, and discharge, Neck: Negative for injury, pain, and swelling, Cardiovascular: Negative for chest pain, palpitations, and edema, Respiratory: Negative for shortness of breath, cough, wheezing, and pleuritic chest pain, Back: Negative for injury and pain, : Negative for injury, bleeding, discharge, and swelling, MS/Extremity: Negative for injury and deformity, Skin: Negative for injury, rash, and discoloration, Neuro: Negative for headache, weakness, numbness, tingling, and seizure, Psych: Negative for depression, anxiety, suicide ideation, homicidal ideation, and hallucinations, Allergy/Immunology: Negative for hives, rash, and allergies, Endocrine: Negative for neck swelling, polydipsia, polyuria, polyphagia, and marked weight changes, Hematologic/Lymphatic: Negative for swollen nodes, abnormal bleeding, and unusual bruising. 18:01 Abdomen/GI: Positive for abdominal pain, nausea, of the left lower quadrant. Exam: 18:01 Constitutional: This is a well developed, well nourished patient who is awake, alert, ewelina and in no acute distress. Head/Face: Normocephalic, atraumatic. Eyes: Pupils equal round and reactive to light, extra-ocular motions intact. Lids and lashes normal. Conjunctiva and sclera are non-icteric and not injected. Cornea within normal limits. Periorbital areas with no swelling, redness, or edema. ENT: Nares patent. No nasal discharge, no septal abnormalities noted. Tympanic membranes are normal and external auditory canals are clear. Oropharynx with no redness, swelling, or masses, exudates, or evidence of obstruction, uvula midline. Mucous membranes moist. Neck: Trachea midline, no thyromegaly or masses palpated, and no cervical lymphadenopathy. Supple, full range of motion without nuchal rigidity, or vertebral point tenderness. No Meningismus. Chest/axilla: Normal chest wall appearance and motion. Nontender with no deformity. No lesions are appreciated. Cardiovascular: Regular rate and rhythm with a normal S1 and S2. No gallops, murmurs, or rubs. Normal PMI, no JVD. No pulse deficits. Respiratory: Lungs have equal breath sounds bilaterally, clear to auscultation and percussion. No rales, rhonchi or wheezes noted. No increased work of breathing, no retractions or nasal flaring. Back: No spinal tenderness. No costovertebral tenderness. Full range of motion. Male : Normal genitalia with no discharge or lesions. Skin: Warm, dry with normal turgor. Normal color with no rashes, no lesions, and no evidence of cellulitis. MS/ Extremity: Pulses equal, no cyanosis. Neurovascular intact. Full, normal range of motion. Neuro: Awake and alert, GCS 15, oriented to person, place, time, and situation. Cranial nerves II-XII grossly intact. Motor strength 5/5 in all extremities. Sensory grossly intact. Cerebellar exam normal. Normal gait. Psych: Awake, alert, with orientation to person, place and time. Behavior, mood, and affect are within normal limits. 18:01 Abdomen/GI: Inspection: abdomen appears normal, Bowel sounds: hyperactive, Palpation: mild abdominal tenderness, moderate abdominal tenderness, in the left lower quadrant, Liver: no appreciated palpable abnormalities, Hernia: not appreciated. Vital Signs: 15:56 BP 104 / 71; Pulse 109; Resp 19; Temp 99.0(O); Pulse Ox 99% on R/A; Weight 94.35 kg; la1 Height 6 ft. 2 in. (187.96 cm); 16:08 BP 94 / 70; Pulse 102; la1 17:14 BP 105 / 70; Pulse 93; Resp 16; Pulse Ox 100% on R/A; la1 17:31 BP 112 / 80; Pulse 82; Resp 16; Pulse Ox 98% on R/A; la1 18:42 BP 120 / 80; Pulse 86; Resp 16; Pulse Ox 99% on R/A; la1 19:12 BP 113 / 72; Pulse 60; Resp 18; Pulse Ox 98% ; ea 20:51 BP 115 / 76; Pulse 85; Resp 18; Temp 98.7(O); Pulse Ox 98% ; Pain 4/10; ea 15:56 Body Mass Index 26.71 (94.35 kg, 187.96 cm) [facility] MDM: 16:15 Patient medically screened. [facility] 18:53 Data reviewed: vital signs, nurses notes, lab test result(s), EKG, radiologic studies, [facility] CT scan, plain films. 04/21 16:16 Order name: Basic Metabolic Panel [facility] 04/21 16:16 Order name: CBC with Diff; Complete Time: 17:56 [facility] 04/21 16:16 Order name: Ckmb; Complete Time: 17:56 [facility] 04/21 16:16 Order name: CPK; Complete Time: 17:56 [facility] 04/21 16:16 Order name: LFT's; Complete Time: 17:56 [facility] 04/21 16:16 Order name: Magnesium; Complete Time: 17:56 [facility] 04/21 16:16 Order name: NT PRO-BNP; Complete Time: 17:56 [facility] 04/21 16:16 Order name: PT-INR; Complete Time: 17:56 [facility] 04/21 16:16 Order name: Ptt, Activated; Complete Time: 17:56 [facility] 04/21 16:16 Order name: Troponin (emerg Dept Use Only); Complete Time: 17:56 [facility] 04/21 16:16 Order name: Lipase; Complete Time: 17:56 [facility] 04/21 16:16 Order name: Blood Culture Adult (2) [facility] 04/21 16:16 Order name: Basic Metabolic Panel; Complete Time: 17:56 [facility] 04/21 16:16 Order name: XRAY Chest (1 view); Complete Time: 17:56 [facility] 04/21 16:16 Order name: EKG; Complete Time: 16:17 [facility] 04/21 16:16 Order name: Cardiac monitoring; Complete Time: 16:40 [facility] 04/21 16:16 Order name: EKG - Nurse/Tech; Complete Time: 16:49 [facility] 04/21 16:16 Order name: IV Saline Lock; Complete Time: 16:41 [facility] 04/21 17:56 Order name: Abdomen ; Complete Time: 19:49 [facility] 04/21 16:16 Order name: Labs collected and sent; Complete Time: 16:41 [facility] 04/21 16:16 Order name: O2 Per Protocol; Complete Time: 16:41 [facility] 04/21 16:16 Order name: O2 Sat Monitoring; Complete Time: 16:49 [facility] Administered Medications: 16:40 Drug: NS 0.9% 1000 ml Route: IV; Rate: 1 bolus; Site: Port-a-cath; la1 17:28 Follow up: IV Status: Completed infusion la1 17:14 Drug: NS 0.9% 1000 ml Route: IV; Rate: 1 bolus; Site: Port-a-cath; la1 18:42 Follow up: IV Status: Completed infusion la1 17:14 Drug: fentaNYL (PF) 25 mcg Route: IVP; Site: Port-a-cath; la1 18:01 Follow up: Response: No adverse reaction; Pain is decreased la1 17:14 Drug: Zofran 4 mg Route: IVP; Site: Port-a-cath; la1 18:01 Follow up: Response: No adverse reaction la1 18:00 Drug: fentaNYL (PF) 25 mcg Route: IVP; Site: Port-a-cath; la1 18:01 Follow up: Response: No adverse reaction; Pain is decreased la1 18:45 Drug: morphine 4 mg Route: IVP; Site: Port-a-cath; jb4 19:14 Follow up: Response: No adverse reaction; Pain is decreased ea 18:54 Drug: Cipro 400 mg Volume: 200 ml; Route: IVPB; Infused Over: 60 mins; Site: la1 Port-a-cath; 20:09 Follow up: IV Status: Completed infusion bp 20:00 Drug: Flagyl 500 mg Volume: 100 ml; Route: IVPB; Rate: 200 ml/hr; Infused Over: 30 bp mins; Site: left antecubital; 21:10 Follow up: Response: No adverse reaction; IV Status: Infusion continued upon transfer ea 21:10 Drug: morphine 4 mg Route: IVP; Site: Port-a-cath; ea 21:10 Follow up: Response: No adverse reaction; No adverse reaction, medication adminsitered ea at transfer. Disposition: 04/21/18 18:07 Transfer ordered to [facility]. Diagnosis are Abdominal tenderness, Weakness, Anemia, unspecified, Unspecified kidney failure, Colostomy status. - Reason for transfer: Higher level of care. - Accepting physician is to roman catholic. - Condition is Fair. - Problem is new. - Symptoms have improved. Signatures: Dispatcher [employer] [facility] Dylan Shah MD MD cha Therrien, Shelly, ASP NET DEVELOPER-C ASP NET DEVELOPER-Csnw Fredy Yu RN RN la1 Stanislaw Berger, RN RN jb4 Brooklyn Vera RN RN ea Peltier, Brian, RN RN bp Corrections: (The following items were deleted from the chart) 17:56 16:57 Abdomen Pelvis W Con+CT.RAD.BRZ ordered. [facility] 18:54 18:07 04/21/2018 18:07 Transfer ordered to [facility]. Diagnosis is ewelina Abdominal tenderness; Weakness; Anemia, unspecified; Unspecified kidney failure. Reason for transfer: Higher level of care. Accepting physician is to roman catholic. Condition is Fair. Problem is new. Symptoms have improved. [facility] 21:22 18:54 04/21/2018 18:07 Transfer ordered to [facility]. Diagnosis is ea Abdominal tenderness; Weakness; Anemia, unspecified; Unspecified kidney failure; Colostomy status. Reason for transfer: Higher level of care. Accepting physician is to roman catholic. Condition is Fair. Problem is new. Symptoms have improved. ewelina
[2018-04-21] MEDS ORDERED: MORPHINE 4 MG/ML SYR ONE ×2 (18:45→21:03)
[2018-04-21] MEDS ORDERED: CIPROFLOXACIN 400mg IV 400 MG/200 ML BAG IV ONE (18:49)
[2018-04-21] MEDS ORDERED: METRONIDAZOLE 500mg IVPB 500 MG/100 ML BAG IV ONE (18:49)
--- NOTE | 2018-04-21 19:41 | RAD REPORT ---
EXAM DESCRIPTION: CT - Abdomen Pelvis Wo Contrast - 04/21/2018 7:22 pm CLINICAL HISTORY: Abdominal pain, history of colon rectal cancer, history of ostomy COMPARISON: CT imaging July 2017 TECHNIQUE: Axial [address] imaging of the abdomen and pelvis was performed without IV contrast. No IV contrast was given because of allergy, abnormal renal function, patient refusal or physician re quest. Oral contrast was given. All CT scans are performed using dose optimization technique as appropriate and may include automated exposure control or mA/KV adjustment according to patient size. FINDINGS: No suspicious findings in the lung bases. Liver is grossly abnormal. There are innumerable variably sized low-density masses throughout the dylan er parenchyma. Multiple metastatic lesions is by far the single most likely etiology. Spleen, pancrea s, gallbladder and biliary tree show no suspicious findings. Mild bilateral hydronephrosis is present. No obstructing calculus. Ureters are dilated to the pelvic inlet. More distally the ureters are difficult to follow. Urinary bladder is contracted. There is air within the lumen of the bladder. Correlation is needed with any reason catheter procedure the bladde r. Otherwise, enterovesical fistula is suspected. Posterior wall of the bladder does abut the area of postsurgical change and rectal tumor. Low-density mass lateral right kidney believed to be an incide ntal cyst. No significant adrenal finding. Isodense renal masses and pyelonephritis cannot be exclude d in the absence of IV contrast. The urinary bladder is without significant finding. No gastric dilatation or gastric wall thickening. Oral contrast has reached the proximal small bowel. The right mid abdomen ostomy site appears to be a diverting ileostomy. Colostomy is not confirmed. P rominent a amorphous soft tissue is seen along the pelvic floor and perirectal region. This was the s ite of the patient's malignancy. Surgical procedure performed, if any is uncertain. Numerous small ai r densities are present in this region. Bowel is very poorly defined in this region. Perforation is n ot excluded. In the left side pelvis near the dome of the bladder a 4.3 x 2.5 centimeter fluid collec tion is present. This is an extraluminal collection. No suspicious bony findings. IMPRESSION: Innumerable metastatic lesions are scattered throughout the liver parenchyma. Air is present within the lumen of the urinary bladder. If the patient did not have a catheterization procedure that may have introduced the air, enterovesical fistula is likely. Large 8 x 5 centimeter area of amorphous soft tissue along the perirectal region and pelvic floor. Th is abuts the bladder. This is the site of primary malignancy. Air densities in this region may be ext raluminal and abscess is not excluded. A 4.3 x 2.5 centimeter fluid collection along the left dome of the urinary bladder is suspicious for abscess. Full assessment is limited is the absence of IV contrast.
--- NOTE | 2018-04-22 07:50 | EKG ---
Test Date: 2018-04-21 Test Time: 16:49:28 Field Supervisor: SANCHEZ MEASUREMENT RESULTS: Intervals: Rate: 89 SC: 146 QRSD: 90 QT: 362 QTc: 440 Foster: P: 62 SC: 146 QRS: 15 T: 26 INTERPRETIVE STATEMENTS: Normal sinus rhythm Normal ECG No previous ECG available for comparison Electronically Signed On 04-22-18 07:49:53 CDT by Rui Rae
== END 2018-04-21 21:22 | disposition short-term general hospital (02) ==
LOC: ER 15:50
DX: R10.32 Left lower quadrant pain (principal); D64.9 Anemia, unspecified; N19 Unspecified kidney failure; Z85.038 Personal history of other malignant neoplasm of large intestine; Z85.048 Personal history of other malignant neoplasm of rectum, rectosigmoid junction, and anus
CPT/HCPCS: 36415; 71045; 74176; 80048; 80076; 82550; 82553; 83690; 83735; 83880; 84484; 85025; 85610; 85730; 87040; 93005; 99285; J0744; J2405; J3010; J7030

== ENCOUNTER 2018-07-02 12:50 | Emergency (ER) | payer OTHER ==
--- OUTSIDE RECORDS SUMMARY | 2018-07-02 12:54 | XMS REPORT | Continuity of Care Document ---
:1960 Author Organization Interface Problems Problem Status Onset Classification Date Comments Source Date Reported NEW CLINIC Active [facility] VISIT PER 8 Medical [facility] SWELLING Active [place] [address] [facility] SMALL BOWEL Active [facility] OBSTRUCTION 8 Medical Center PELVIC ABSCESS Active [facility] IN MALE, 8 Medical H/OCOLON Center CANCER, SEPTIC Active [place] [address] [facility] Center PERITONEAL Active [facility] ABSCESS Medical Center PERSONAL Active [facility] HISTORY OF Medical MALIGNANT Center NEOPLASM O UNSP INTESTNL Active [facility] OBST, UNSP Medical TO PARTIAL V Center Medications Medication Details Route Status Patient Ordering Order Source Instructions Provider Date Allergies, Adverse Reactions, Alerts Substance Category Reaction Severity Reaction Status Date Comments Source type Reported Immunizations Immunization Date Given Site Status Last Updated Comments Source Results Order Name Results Value Reference Date Interpretation Comments Source Range Chest 1view Chest 1view EXAM: XR CHEST 1 VIEW 06/17 - [facility] DX DX - [facility] Center DATE: 06/17/2018 Read by: Yoko Corado MD Dictated Date/time: 06/17/18 09:32 Electronically Signed by: Yoko Corado MD 06/17/18 09:33 FINAL REPORT INDICATION: - assess for new pulmonary edema . Comparison is made with FINDINGS: Cardiomediastinal silhouette and right jugular Port-A-Cath are unchanged. There is a small left pleural effusion. The right costophrenic sulcus is sharp. There is minimal platelike atelectasis at both lung bases related to relatively low lung volumes. The remainder of the lungs are clear IMPRESSION: There is minimal platelike atelectasis at both lung bases related to relatively low lung volumes. The remainder of the lungs are clear Abdomen AP Abdomen AP DX EXAM: XR ABDOMEN 1 VIEW 06/17 - [facility] - Medical This report was dictated by a [employer] Supervisor/Fellow. I have personally reviewed the images as Center well as the Resident's interpretation and agree with the findings. DATE: 06/17/2018 at 7:47 AM. Read by: Geovany Heredia MD Resident: Geovany Heredia MD Dictated Date/time: 06/17/18 13:23 Electronically Signed by: Emily Cervantes MD 06/17/18 15:27 FINAL REPORT INDICATION: Follow-up SBO. COMPARISON: Abdomen radiographs dated 06/15/2018 and chest radiograph dated 06/17/2018.. TECHNIQUE: AP view of the abdomen. FINDINGS: Lines, tubes and hardware: Bilateral nephrostomy tubes in expected positions. Cholecystectomy clips in the right upper quadrant. There is a pigtail catheter in the pelvis with overall unchanged position . The tip of a central line projects over the right atrium. Lower thorax: Blunting of the bilateral costophrenic sulci consistent with small bilateral pleural effusions or subsegmental atelectasis. Abdomen and bowel: The stomach is gas distended and some prominent bowel loops are again noted in the left upper/mid abdomen. Calcifications: No abnormal calcifications found. Bones and soft tissues: No acute abnormality. IMPRESSION: 1. Persistent mildly prominent bowel loops noted in the left upper quadrant/midabdomen. Recommend serial radiographs for further evaluation. 2. Blunting of the bilateral costophrenic sulci consistent with subsegmental atelectasis or small bilateral pleural effusions. 3. Hardware as above. Abdomen AP Abdomen AP DX EXAM: XR ABDOMEN 1 VIEW 06/15 [facility] /[address] [place] [address] DATE: 06/15/2018 at 0051 hours Read by: Kasi Vicente MD Dictated Date/time: 06/15/18 07:28 Electronically Signed by: Kasi Vicente MD 06/15/18 07:30 FINAL REPORT INDICATION: - SBO ADDITIONAL INFORMATION: None. COMPARISON: 06/14/2018 at 0052 hours TECHNIQUE: AP view of the abdomen. FINDINGS: Lines, tubes and hardware: * Electrocardiogram leads and snaps overlie the patient. * Nasogastric suction tube has been removed. * Bilateral nephrostomy tubes in expected position. * Ventral hernia tacks. * Cholecystectomy clips in the right upper quadrant. * Pigtail catheter at the level of the pelvis. Lower thorax: Unchanged bibasilar subsegmental atelectasis. Abdomen and bowel: A single mildly dilated loop of bowel in the mid left abdomen. Calcifications: No abnormal calcifications found. Bones and soft tissues: No acute abnormality. IMPRESSION: 1. A single mildly dilated loop of bowel in the mid left abdomen is noted. Serial radiographs recommended to ensure resolution. 2. Hardware as above. Abdomen AP Abdomen AP DX EXAM: XR ABDOMEN 1 VIEW 06/14 - [place] DX /2018 - Medical Center DATE: 06/14/2018 at 0052 hours Read by: Kasi Vicente MD Dictated Date/time: 06/14/18 08:42 Electronically Signed by: Kasi Vicente MD 06/14/18 08:43 FINAL REPORT INDICATION: - SBO ADDITIONAL INFORMATION: None. COMPARISON: 06/13/2018 at 0023 hours TECHNIQUE: AP view of the abdomen. FINDINGS: Lines, tubes and hardware: * Port catheter tip is at the cavoatrial junction. * Electrocardiogram leads and snaps overlie the patient. * Nasogastric suction tube sidehole is in the proximal stomach. * Bilateral nephrostomy tubes in expected position. * Ventral hernia tacks. * Pigtail catheter at the level of the pelvis. Lower thorax: Bibasilar subsegmental atelectasis. Abdomen and bowel: Normal. Calcifications: No abnormal calcifications found. Bones and soft tissues: No acute abnormality. IMPRESSION: 1. No abdominal abnormalities. 2. Hardware as above. Nephrostomy Nephrostomy EXAM: VIR BILATERAL NEPHROSTOMY PLACEMENT 06/13 [facility] drain perc drain perc - Medical bilateral bilateral VR DATE: 06/13/2018 12:22 PM CDT This report was dictated by a [employer] Supervisor/Fellow. I have personally reviewed the images as Center VR well as the Resident's interpretation and agree with the findings. PROCEDURE(S) PERFORMED: Read by: Kurt Valdez MD Resident: Kurt Valdez MD Dictated Date/time: 06/13/18 13:33 INDICATION: 58 years old Male with concern for bilateral distal urinary obstruction. Electronically Signed by: Román Perez MD 06/16/18 15:12 FINAL REPORT FACULTY: Román Perez MD RESIDENT/FELLOW/HEALTH AND SAFETY ADVISOR: José Miguel SUPERVISION: Level 1 Direct supervision: The supervising provider is physically present with the patient during the procedure. ANESTHESIA/SEDATION: Moderate sedation PHYSICIAN SUPERVISED ANESTHESIA TIME: 30 min SPECIMEN: None DRAINS: None ESTIMATED BLOOD LOSS: Less than 10 cc COMPLICATIONS: None immediate FLUOROSCOPY TIME: 2.3 min RADIATION DOSE: 37.0 mGy PROCEDURE: After the risks, benefits, and alternatives of the procedure were explained to the patient, verbal and written consent were obtained and a copy was placed in the chart. The procedure site was marked. Th e patient was brought to the angiography suite and placed in the prone position. A time-out was performed. The bilateral flanks were prepped and draped in the usual sterile fashion. IV Versed and Fentan yl were titrated for moderate sedation by a trained observer. Levaquin 750 mg was given IV as a prophylactic antibiotic. 1% Lidocaine was used to anesthetize the subcutaneous tissues overlying the kidney. The right calyceal system was accessed under ultrasound guidance using an 18 gauge Chiba needle and the Seldinger technique. After the system was allowed to decompress, a small volume of contrast was ge ntly infused to confirm placement. Over a Bentsen wire, a 6Fr dilator, and then a 10Fr nephrostomy tube was inserted over the wire under fluoroscopic guidance. Contrast was again gently infused to confi rm placement. Nephrostomy tube was attached to bag drainage and 2-0 Prolene sutures were used to secure the tube to the skin. Attention was then directed towards the left calyceal system which was accessed under ultrasound guidance using an 18 gauge needle and the Seldinger technique. After the system was allowed to decompress , a small volume of contrast was gently infused to confirm placement. Over a Bentsen wire, a 6Fr dilator and then an 10 Fr nephrostomy tube was inserted over the wire under fluoroscopic guidance. Contra st was again gently infused to confirm placement. . Nephrostomy tube was attached to bag drainage and 2-0 Prolene sutures were used to secure the tube to the skin. Sterile dressing was applied. The ramiro ent was transferred to the recovery room in stable condition. FINDINGS: Antegrade nephrostogram showed mild mid to distal ureteral dilatation, left greater than right, without immediate contrast passage into bladder. IMPRESSION: 1. Right 10 Fr nephrostomy placed without complication. 2. Left 10 Fr nephrostomy placed without complication 3. Antegrade nephrostogram showed mild mid to distal ureteral dilatation, left greater than right, without immediate contrast passage into bladder. Plan: Routine exchange of nephrostomy tubes between [address] Román Perez MD was present for the procedure. Abdomen AP Abdomen AP DX EXAM: XR ABDOMEN 1 VIEW 06/13 [facility] /2018 - [facility] Center DATE: 06/13/2018 0023 Read by: Kasi Vicente MD Dictated Date/time: 06/13/18 08:42 Electronically Signed by: Kasi Vicente MD 06/13/18 08:45 FINAL REPORT INDICATION: - SBO ADDITIONAL INFORMATION: None. COMPARISON: 06/12/2018 at 0726hours. TECHNIQUE: AP view of the abdomen. FINDINGS: Lines, tubes and hardware: * Ventral hernia tacks. * Cholecystectomy clips in the right upper quadrant. * Pigtail catheter in the pelvis. * Electrocardiogram leads overlie the patient. Lower thorax: Unremarkable where visible. Abdomen and bowel: Nonspecific paucity of gas remains. No dilated loops of bowel. Calcifications: Phleboliths identified. Bones and soft tissues: No acute abnormality. IMPRESSION: 1. Paucity of gas present for evaluation, but small bowel obstruction is still likely improving. Continued radiographic surveillance recommended. 2. Hardware as above. Vascular/In Vascular/Inte EXAM: VIR BILATERAL NEPHROSTOMY PLACEMENT 06/12 [facility]ervention[facility] r[facility] /2017 - Medical l Radiology Radiology DATE: 06/13/2018 12:22 PM CDT This report was dictated by a [employer] Supervisor/Fellow. I have personally reviewed the images as Center Consult Consult well as the Resident's interpretation and agree with the findings. PROCEDURE(S) PERFORMED: Read by: Kurt Valdez MD Resident: Kurt Valdez MD Dictated Date/time: 06/13/18 13:33 INDICATION: 58 years old Male with concern for bilateral distal urinary obstruction. Electronically Signed by: Román Perez MD 06/16/18 15:12 FINAL REPORT FACULTY: Román Perez MD RESIDENT/FELLOW/HEALTH AND SAFETY ADVISOR: José Miguel SUPERVISION: Level 1 Direct supervision: The supervising provider is physically present with the patient during the procedure. ANESTHESIA/SEDATION: Moderate sedation PHYSICIAN SUPERVISED ANESTHESIA TIME: 30 min SPECIMEN: None DRAINS: None ESTIMATED BLOOD LOSS: Less than 10 cc COMPLICATIONS: None immediate FLUOROSCOPY TIME: 2.3 min RADIATION DOSE: 37.0 mGy PROCEDURE: After the risks, benefits, and alternatives of the procedure were explained to the patient, verbal and written consent were obtained and a copy was placed in the chart. The procedure site was marked. Th e patient was brought to the angiography suite and placed in the prone position. A time-out was performed. The bilateral flanks were prepped and draped in the usual sterile fashion. IV Versed and Fentan yl were titrated for moderate sedation by a trained observer. Levaquin 750 mg was given IV as a prophylactic antibiotic. 1% Lidocaine was used to anesthetize the subcutaneous tissues overlying the kidney. The right calyceal system was accessed under ultrasound guidance using an 18 gauge Chiba needle and the Seldinger technique. After the system was allowed to decompress, a small volume of contrast was ge ntly infused to confirm placement. Over a Bentsen wire, a 6Fr dilator, and then a 10Fr nephrostomy tube was inserted over the wire under fluoroscopic guidance. Contrast was again gently infused to confi rm placement. Nephrostomy tube was attached to bag drainage and 2-0 Prolene sutures were used to secure the tube to the skin. Attention was then directed towards the left calyceal system which was accessed under ultrasound guidance using an 18 gauge needle and the Seldinger technique. After the system was allowed to decompress , a small volume of contrast was gently infused to confirm placement. Over a Bentsen wire, a 6Fr dilator and then an 10 Fr nephrostomy tube was inserted over the wire under fluoroscopic guidance. Contra st was again gently infused to confirm placement. . Nephrostomy tube was attached to bag drainage and 2-0 Prolene sutures were used to secure the tube to the skin. Sterile dressing was applied. The ramiro ent was transferred to the recovery room in stable condition. FINDINGS: Antegrade nephrostogram showed mild mid to distal ureteral dilatation, left greater than right, without immediate contrast passage into bladder. IMPRESSION: 1. Right 10 Fr nephrostomy placed without complication. 2. Left 10 Fr nephrostomy placed without complication 3. Antegrade nephrostogram showed mild mid to distal ureteral dilatation, left greater than right, without immediate contrast passage into bladder. Plan: Routine exchange of nephrostomy tubes between [address] Román Perez MD was present for the procedure. Abdomen AP Abdomen AP DX EXAM: XR ABDOMEN 1 VIEW 06/12 [facility] DX /2018 [facility] DATE: 06/12/2018 at 0726 hours Read by: Kasi Vicente MD Dictated Date/time: 06/12/18 11:10 Electronically Signed by: Kasi Vicente MD 06/12/18 11:13 FINAL REPORT INDICATION: - f/u bowel obstruction ADDITIONAL INFORMATION: None. COMPARISON: 06/11/2018 at 2108 hours. TECHNIQUE: AP view of the abdomen. FINDINGS: Lines, tubes and hardware: * Ventral hernia tacks. * Cholecystectomy clips in the right upper quadrant. * Pigtail catheter in the pelvis. * Electrocardiogram leads overlie the patient. Lower thorax: Unremarkable where visible. Abdomen and bowel: There is a paucity of gas, but there may be slight improvement in dilated loops of bowel. Calcifications: No abnormal calcifications found. Bones and soft tissues: No acute abnormality. IMPRESSION: 1. Improving small bowel obstruction. Continued radiographic surveillance recommended. 2. Hardware as above. Retroperito Retroperitone EXAM: US RENAL 06/11 - [facility] /2017 - Medical Complete [facility] Center DATE: 06/11/2018 10:20 AM CDT Read by: Emily Cervantes MD Dictated Date/time: 06/11/18 15:44 Electronically Signed by: Emily Cervantes MD 06/11/18 15:47 FINAL REPORT INDICATION: - bilateral hydronephrosis COMPARISON: None. TECHNIQUE: Multiplanar grayscale and color Doppler ultrasound images of the kidneys and urinary bladder. DISCUSSION: Right kidney: Hydronephrosis: Moderate. The proximal ureter measures up to 2.4 cm with minimal debris noted within the lumen. Size: 14 x 7.6 x 6.7 cm Echogenicity: Normal. Parenchymal thickness and contour: Normal. Calculi: None. Cysts: A partially exophytic simple cortical cyst in the interpolar region measures 3.2 x 4.7 x 3.7 cm. Masses: None. Left kidney: Hydronephrosis: Mild. The proximal ureter is also dilated measuring up to 9 mm. Size: 14.2 x 7.5 x 6.6 cm Echogenicity: Normal. Parenchymal thickness and contour: Normal. Calculi: None. Cysts: None. Masses: None. Bladder: Decompressed with Camilo's catheter in situ and minimal debris is noted within the decompressed bladder lumen. IMPRESSION: Bilateral mild to moderate hydronephrosis, right greater than left. Bilateral proximal hydroureter. Decompressed urinary bladder with Camilo catheter in situ. Abdomen AP Abdomen AP DX EXAM: XR ABDOMEN 1 VIEW 06/11 - [facility] DX /2018 - Medical Center DATE: 06/11/2018 at 2108 hours Read by: Kasi Vicente MD Dictated Date/time: 06/12/18 10:58 Electronically Signed by: Kasi Vicente MD 06/12/18 11:09 FINAL REPORT INDICATION: - NG placement ADDITIONAL INFORMATION: None. COMPARISON: 06/09/2018 at 1738 hours TECHNIQUE: Limited AP view of the abdomen for tube placement assessment. Number of images: 1 FINDINGS: Transesophageal feeding tube (tip): None present Transesophageal suction tube (sidehole): Proximal stomach. Other tubes, lines and hardware: Ventral hernia tacks and electrocardiogram leads overlie the patient. Other: Slight improvement in bowel dilation, perhaps improving small bowel obstruction. No other changes. IMPRESSION: 1. Tube positions as above. 2. Improving small bowel obstruction. Abscess Abscess PROCEDURE: Drainage catheter exchange 06/11 [facility] abdomen abdomen /2018 - Medical retroperito retroperitone This report was dictated by a [employer] Supervisor/Fellow. I have personally reviewed the images as Center [facility] drainage well as the Resident's interpretation and agree with the findings. drainage VR VR Procedural Personnel Read by: Kurt Vladez MD Resident: Kurt Valdez MD Dictated Date/time: 06/21/18 13:55 Attending physician(s): Chris CHARLES Electronically Signed by: Román Perez MD 06/30/18 08:08 FINAL REPORT Fellow physician(s): José Miguel CHARLES Resident physician(s): None Advanced practice provider(s): None Pre-procedure diagnosis: Pelvic fluid collection Post-procedure diagnosis: Same Indication: Persistent fluid collection despite indwelling drainage catheter Additional clinical history: None Complications: No immediate complications. IMPRESSION: Exchange of indwelling drainage catheter for a new 12 Wallisian drainage catheter in the pelvis. Plan: Continue monitoring output PROCEDURE SUMMARY: - Drainage catheter exchange under fluoroscopic guidance - Additional procedure(s): None PROCEDURE DETAILS: Pre-procedure Consent: Informed consent for the procedure including risks, benefits and alternatives was obtained and time-out was performed prior to the procedure. Preparation: The site was prepared and draped using maximal sterile barrier technique including cutaneous antisepsis. Anesthesia/sedation Level of anesthesia/sedation: Moderate sedation (conscious sedation) Anesthesia/sedation administered by: Independent trained observer under attending supervision with continuous monitoring of the patient's level of consciousness and physiologic status Total intra-service sedation time (minutes): 30 Drainage catheter exchange The patient was positioned supine. Initial imaging was performed with contrast injection through the indwelling tube. Local anesthesia was administered. A wire was placed through the indwelling drainage catheter and the catheter was removed. The new drainage catheter was advanced, and position within the fluid collection was confirmed. - Initial imaging findings: Drain is within a small fluid collection. - Pre-existing drainage catheter: Within the fluid collection - Drainage catheter placed: All-purpose drainage catheter - External catheter securement: Non-absorbable suture - Post-drain exchange imaging findings: Partial drainage of the fluid collection Contrast Contrast agent: Omnipaque 300 Contrast volume (mL): 20 Radiation Dose Fluoroscopy time (minutes): 2.2 Reference air kerma (mGy): 50.6 Kerma area product (cGy-m2): 1158.0 Additional Details Additional description of procedure: None Equipment details: None Specimens removed: 20 mL of serous fluid was removed. Aspirated fluid was sent for analysis. Estimated blood loss (mL): Less than 10 Standardized report: [email or web address] Attestation Signer name: Román Perez MD I attest that I was present for the entire procedure. I reviewed the stored images and agree with the report as written. Vascular/In Vascular/Inte PROCEDURE: Drainage catheter exchange 06/10 - [facility] - Medical Radiology Radiology This report was dictated by a [employer] Supervisor/Fellow. I have personally reviewed the images as Center Consult Consult well as the Resident's interpretation and agree with the findings. Procedural Personnel Read by: Kurt Valdez MD Resident: Kurt Valdez MD Dictated Date/time: 06/21/18 13:55 Attending physician(s): Chris CHARLES Electronically Signed by: Román Perez MD 06/30/18 08:08 FINAL REPORT Fellow physician(s): José Miguel CHARLES Resident physician(s): None Advanced practice provider(s): None Pre-procedure diagnosis: Pelvic fluid collection Post-procedure diagnosis: Same Indication: Persistent fluid collection despite indwelling drainage catheter Additional clinical history: None Complications: No immediate complications. IMPRESSION: Exchange of indwelling drainage catheter for a new 12 Wallisian drainage catheter in the pelvis. Plan: Continue monitoring output PROCEDURE SUMMARY: - Drainage catheter exchange under fluoroscopic guidance - Additional procedure(s): None PROCEDURE DETAILS: Pre-procedure Consent: Informed consent for the procedure including risks, benefits and alternatives was obtained and time-out was performed prior to the procedure. Preparation: The site was prepared and draped using maximal sterile barrier technique including cutaneous antisepsis. Anesthesia/sedation Level of anesthesia/sedation: Moderate sedation (conscious sedation) Anesthesia/sedation administered by: Independent trained observer under attending supervision with continuous monitoring of the patient's level of consciousness and physiologic status Total intra-service sedation time (minutes): 30 Drainage catheter exchange The patient was positioned supine. Initial imaging was performed with contrast injection through the indwelling tube. Local anesthesia was administered. A wire was placed through the indwelling drainage catheter and the catheter was removed. The new drainage catheter was advanced, and position within the fluid collection was confirmed. - Initial imaging findings: Drain is within a small fluid collection. - Pre-existing drainage catheter: Within the fluid collection - Drainage catheter placed: All-purpose drainage catheter - External catheter securement: Non-absorbable suture - Post-drain exchange imaging findings: Partial drainage of the fluid collection Contrast Contrast agent: Omnipaque 300 Contrast volume (mL): 20 Radiation Dose Fluoroscopy time (minutes): 2.2 Reference air kerma (mGy): 50.6 Kerma area product (cGy-m2): 1158.0 Additional Details Additional description of procedure: None Equipment details: None Specimens removed: 20 mL of serous fluid was removed. Aspirated fluid was sent for analysis. Estimated blood loss (mL): Less than 10 Standardized report: [email or web address] Attestation Signer name: Román Perez MD I attest that I was present for the entire procedure. I reviewed the stored images and agree with the report as written. Chest 1view Chest 1view EXAM: XR CHEST 1 VIEW 06/10 [facility] DX DX /2017 - Medical Center DATE: 06/10/2018 at 0614 hours Read by: Valeri Serrano MD Dictated Date/time: 06/10/18 06:23 Electronically Signed by: Valeri Serrano MD 06/10/18 06:28 FINAL REPORT INDICATION: - chest pressure and septic COMPARISON: May 30, 2018 at 1620 hours TECHNIQUE: AP chest FINDINGS: Lines and tubes: A right jugular Port-A-Cath is stable in position with tip projecting at atriocaval junction. Lungs and pleura: Lung volumes are low. Perihilar haze is present. Bibasilar opacities are present, left greater than right. Small right pleural effusion is seen. Heart and mediastinum: The cardiomediastinal silhouette is stable. Bones: No interval change. IMPRESSION: 1. Lung volumes are low and scattered bibasilar opacities may be due singly or combination to atelectasis, asymmetric edema or superimposed infection , left greater than right. 2. Pulmonary venous hypertension with small right pleural effusion. RECOMMENDATIONS: Repeat chest radiograph with improved inspiratory volume. Ext Lower Ext Lower EXAM: US BILATERAL LOWER EXTREMITY VENOUS DOPPLER [facility] Venous Venous /2017 - Medical Doppler Doppler Bilat This report was dictated by a [employer] Supervisor/Fellow. I have personally reviewed the images as Center Bilat US US well as the Resident's interpretation and agree with the findings. DATE: 06/10/2018 at that 0412 hours Read by: Alina Muse MD Resident: Alina Muse MD Dictated Date/time: 06/10/18 05:35 Electronically Signed by: Ruma Matias MD 06/10/18 08:29 FINAL REPORT INDICATION: 58-year-old female presenting with lymphedema rule out dvt ADDITIONAL INFORMATION: None. COMPARISON: None. TECHNIQUE: Multiplanar grayscale, color Doppler and spectral Doppler ultrasound of the bilateral lower extremity veins. FINDINGS: Right Thigh Veins: Common Femoral: Patent. Femoral (SFV): Patent. Popliteal: Patent. Proximal Greater Saphenous: Patent. Proximal Deep Femoral Veins: Patent. Left Thigh Veins: Common Femoral: A nonocclusive echogenic thrombus seen in the left CFV. Femoral (SFV): Patent. Popliteal: Patent. Proximal Greater Saphenous: Patent. Proximal Deep Femoral Veins: A nonocclusive thrombus is seen in the left DFV. Other: None. IMPRESSION: 1. There is nonocclusive deep venous thrombosis (DVT) of the left common femoral vein and left deep femoral vein. 2. Negative for deep venous thrombosis (DVT) of the right lower extremity. Findings were communicated to Dr. Gregorio by Dr. Voss via telephone at 0544 hours on 06/10/2018. Abdomen/Pel Abdomen/Pelvi EXAM: CT ABDOMEN AND PELVIS WITHOUT CONTRAST - [facility] wo IV s wo IV /2017 - Medical contrast CT contrast CT This report was dictated by a [employer] Supervisor/Fellow. I have personally reviewed the images as Center well as the Resident's interpretation and agree with the findings. DATE: 06/09/2018 4:50 PM CDT Read by: Chan Mccarty Resident: Chan Mccarty Dictated Date/time: 06/09/18 17:44 Electronically Signed by: Emily Cervantes MD 06/10/18 11:46 FINAL REPORT INDICATION: -Abdominal pain, history of pelvic abscess ADDITIONAL INFORMATION: 58 year old male with PMH of stage IV colon cancer s/p chemoradiation and tumor resection in November 2017 with [address] in [address], cycle of 5 chemotherapy last received May 22, 2018, is presenting with abdominal pain, poor appetite and worsening b/l leg swelling since last Patient was recently admitted with pelvic abscess. COMPARISON: CT abdomen and pelvis dated 05/30/2018. TECHNIQUE: Volumetric CT of the abdomen and pelvis is acquired without intravenous contrast. Axial, coronal and sagittal images are provided. IV contrast: None. Enteric contrast: None. DLP: 557 mGy-cm FINDINGS: Lines, tubes and hardware: Interval new placement of left gluteal drain. Unchanged ventral hernia mesh repair. Lower thorax: Clear. Liver: Redemonstrated innumerable hypodense lesions in the liver representing metastatic disease is previous described. Lesions appear increased in size thou lack of contrast limits the evaluation. Biliary tree: No intra- or extrahepatic biliary ductal dilation. Gallbladder: Normal. Pancreas: Normal. Spleen: Normal. Adrenals: Normal. Kidneys and ureters: Redemonstrated 4 cm cortical and 2 cm interpolar simple cyst seen in the right kidney. Stable mild bilateral hydronephrosis. No evidence of renal calculi. Bladder: Normal. Reproductive organs: Normal Gastrointestinal tract: Stomach: Normal. Small bowel: Normal. Colon: Right lower quadrant ostomy is unremarkable along with previously described postsurgical changes seen in the abdomen. There is marginal improvement in the pelvis collection measuring 5.6 x 5.2 cm (3, 88), previously measures 6.7 x 7.4 cm (4, 87) with pigtail catheter along the left lateral aspect.. Appendix: Surgically absent. Peritoneum, mesentery and retroperitoneum: No free air, ascites or loculated fluid. Stable nodularity and thickening of the omentum anteriorly (3, 44) consistent with omental caking as previously descri bed. Impression multiple nodular deposits are also seen in the mesentery suggestive of metastatic implants (3, 62) Lymph nodes: Redemonstrated multiple enlarged retroperitoneal lymph nodes for example an index 1.6 cm retroperitoneal lymph node (image 43, series 3), increased in size compared to prior exam concerning for metastatic disease. Vasculature: Aorta and branches: Normal. IVC and veins: Normal. Portal vasculature: Normal. Bones: No acute abnormality. Soft tissues: Small fat-containing ventral hernia.. IMPRESSION: Lack of IV contrast limits evaluation. 1. Redemonstrated dilated loops of small bowel consistent with small bowel obstruction. 2. Increase in size of the index retroperitoneal lymph node and as well as increase in size of the liver lesions suggesting progression of the metastatic disease 3. Stable peritoneal carcinomatosis as well as multiple nodular deposits in the mesentery suggestive of metastatic disease 4. Marginal improvement in the pelvic collection with pigtail catheter in situ. Abscess Abscess STUDY: Drainage of pelvic abscess VIR imaging guided - [facility] Guidance w Guidance - Medical drainage CT drainage CT Center DATE: 06/02/2018 1:10 PM CDT Read by: Enoch Cameron MD Dictated Date/time: 06/02/18 15:00 Electronically Signed by: Enoch Cameron MD 06/02/18 15:02 FINAL REPORT INDICATION(S): Abscess in the pelvis, probably a perforation of bowel. PROCEDURE(S) PERFORMED: The patient is placed supine decubitus on the table with [id number] left side up. Area over the left posterior pelvis was sterilely prepped and draped. 1% lidocaine was infi ltrated for local anesthesia. 18-gauge Chiba needle was placed into the fluid and purulent material was aspirated. An aliquot of this was sent for culture and sensitivity and Gram stain. Over 0.035 inch Hardy wire a 10.2-Wallisian cope locking loop catheter was placed and secured in place with 2-0 Prolene as well as locking loop. Sterile dressing was applied [place] DECORATOR: Rakesh HEALTH AND SAFETY ADVISOR(S): CONSENT: Written consent obtained after discussing the indications, procedure, potential benefits, alternatives and risks SEDATION/PAIN CONTROL: Moderate conscious sedation was administered by a dedicated nurse under my supervision. There was continuous monitoring of BP, pulse and oxygen saturation.. Sedation time 40 minutes. COMPLICATIONS: None ESTIMATED BLOOD LOSS: Minimal mL FLUOROSCOPIC TIME: minutes. RADIATION DOSE: mGy CONTRAST VOLUME: mL FINDINGS: Computed tomography scan shows pelvic abscess with both appear and fluid in it. Postprocedure the tube is in proper position in the abscess. IMPRESSION: 1. Abscess drainage 10-Wallisian tube performed in the pelvis PLAN/FOLLOW UP: The tube should be placed to gravity drainage with outputs measured at least daily. The tube should be flushed with 10 mL normal saline [address] Cameron, IR Attending, was present for the procedure. Lung Lung EXAM: PR Pulmonary Ventilation and Perfusion Imaging 06/01 - [facility] ventilation ventilation/ /2018 - Medical /perfusion erfusion scan This report was dictated by a [employer] Supervisor/Fellow. I have personally reviewed the images as Center scan PR NM well as the Resident's interpretation and agree with the findings. DATE: 06/01/2018 11:48 AM CDT Read by: Apolinar Nascimento MD Resident: Apolinar Nascimento MD Dictated Date/time: 06/02/18 23:58 Electronically Signed by: Sierra Zamora MD 06/04/18 17:44 FINAL REPORT INDICATION: - Chest pain and shortness of breath, To assess Pulmonary Embolism COMPARISON: None TECHNIQUE: After inhalation of 24.5 mCi of Xe-133 gas posterior images of the lungs were obtained. Subsequently, the patient was injected with 4 mCi of Tc-99m MAA and multiple static images of the lungs were obtained in different projections. FINDINGS: Ventilation images demonstrate homogeneous tracer distribution in the lungs. Subsequently there is good washout of xenon gas from both lungs with no evidence of air trapping to suggest airway obstruction. Perfusion images demonstrate homogeneous tracer distribution in the bilateral lungs. There are no segmental or subsegmental perfusion defects seen on perfusion images to suggest acute pulmonary embolism. IMPRESSION: Normal ventilation perfusion lung scan. Ext Lower Ext Lower EXAM: US BILATERAL UPPER EXTREMITY VENOUS DOPPLER [facility] Venous Venous - Medical Doppler Doppler EXAM: US BILATERAL LOWER EXTREMITY VENOUS DOPPLER [facility] Read by: Harris Noyola MD Dictated Date/time: 05/31/18 11:06 DATE: 05/31/2018 1:31 AM CDT Electronically Signed by: Harris Noyola MD 05/31/18 11:10 FINAL REPORT INDICATION: - Eval for DVT, Stage 4 CA ADDITIONAL INFORMATION: None. COMPARISON: None. TECHNIQUE: Multiplanar grayscale, color Doppler and spectral Doppler ultrasound of the left lower and right upper extremity veins. FINDINGS: Right Upper Extremity Veins: Internal Jugular: Patent. Subclavian: Patent. Axillary: Patent. Brachial: Patent. Basilic: Patent. Cephalic: Not visualized. Left Thigh Veins: Common Femoral: Patent. Femoral (SFV): Patent. Popliteal: Patent. Proximal Greater Saphenous: Patent. Deep Femoral Veins: Patent. Other: None. IMPRESSION: 1. Normal. No deep venous thrombosis (DVT) of the right upper extremity or the left lower extremity. Ext Upper Ext Upper EXAM: US BILATERAL UPPER EXTREMITY VENOUS DOPPLER - [facility] Venous Venous - Medical Doppler Doppler EXAM: US BILATERAL LOWER EXTREMITY VENOUS DOPPLER [facility] Read by: Harris Noyola MD Dictated Date/time: 05/31/18 11:06 DATE: 05/31/2018 1:31 AM CDT Electronically Signed by: Harris Noyola MD 05/31/18 11:10 FINAL REPORT INDICATION: - Eval for DVT, Stage 4 CA ADDITIONAL INFORMATION: None. COMPARISON: None. TECHNIQUE: Multiplanar grayscale, color Doppler and spectral Doppler ultrasound of the left lower and right upper extremity veins. FINDINGS: Right Upper Extremity Veins: Internal Jugular: Patent. Subclavian: Patent. Axillary: Patent. Brachial: Patent. Basilic: Patent. Cephalic: Not visualized. Left Thigh Veins: Common Femoral: Patent. Femoral (SFV): Patent. Popliteal: Patent. Proximal Greater Saphenous: Patent. Deep Femoral Veins: Patent. Other: None. IMPRESSION: 1. Normal. No deep venous thrombosis (DVT) of the right upper extremity or the left lower extremity. Abdomen/Pel Abdomen/Pelvi EXAM: CT ABDOMEN AND PELVIS WITH CONTRAST 05/30 - [facility] w IV s w IV - Medical contrast CT contrast CT This report was dictated by a [employer] Supervisor/Fellow. I have personally reviewed the images as Center well as the Resident's interpretation and agree with the findings. DATE: 05/30/2018 5:09 PM CDT Read by: Seymour Orourke MD Resident: Seymour Orourke MD Dictated Date/time: 05/30/18 19:31 Electronically Signed by: Harris Noyola MD 05/31/18 12:09 FINAL REPORT INDICATION: - Abd pain ADDITIONAL INFORMATION: History of stage IV colorectal cancer status post resection with ileostomy and radiation therapy. Currently on CT with therapy. COMPARISON: None. TECHNIQUE: Volumetric CT acquisition of the abdomen and pelvis after the intravenous administration contrast. Axial, coronal and sagittal reconstructions. Postcontrast phases: Venous and delayed. IV contrast: 96 mL Visipaque 320 Enteric contrast: None. DLP: 1030 mGy-cm FINDINGS: Lines, tubes and hardware: None. Lower thorax: Clear. Liver: Numerous hypodense nodules with the largest measuring 2.6 x 3.0 cm in size (series 4 image 15) likely represent metastatic disease. Biliary tree: No intra- or extrahepatic biliary ductal dilation. Gallbladder: Normal. No CT evidence of gallstones. Pancreas: Normal. Spleen: Normal. Adrenals: Normal. Kidneys and ureters: Bilateral hydronephrosis and hydroureter. No appreciable contrast excretion is seen on the delayed images. Simple 4 cm cyst is present in the interpolar cortex of the right kidney. Bladder: Small bubbles of gas are present in the urinary bladder (series 4 image 81). Please correlate for possible history of instrumentation. Reproductive organs: No CT abnormality. Gastrointestinal tract: There is marked distention of the stomach and the proximal small bowel. There is a transition point in the lower midabdomen ( series 4 image 64) which the small bowel is collapsed. An ileostomy is present. Peritoneum, mesentery and retroperitoneum: There is mild mesenteric edema. There is also a collection of fluid and air in the pelvis, posterior to the urinary bladder, that measures 7.6 x 6.4 x 4.1 cm i n size and likely represents a perirectal abscess. There is also omental caking. Anastomotic sutures are present in the mid abdomen (series 4 image 47). Multiple periaortic lymph nodes are present with the largest (series 4 image 42) measuring up to 1 cm in the short axis. Vasculature: Normal. Bones: Degenerative changes are present in its and spine but no aggressive bony lesions are appreciated. Bilateral L5 pars defects are present. Soft tissues: There has been a prior laparoscopic ventral hernia. IMPRESSION: 1. Small bowel obstruction of the ileum in the lower midline abdomen ( series 4 image 64. 2. Perirectal pelvic abscess measuring 7.6 x 6.4 x 7.1. 3. Numerous hepatic hypodense lesions consistent with metastatic disease in the setting of colon cancer. 4. Omental caking. 5. Mild bilateral hydronephrosis with absent excretion on the delayed images concerning for renal failure. 6. Surgical changes in the mid abdomen, which may represent prior resection of bowel or mass lesion, with ileostomy. 7. Surgical changes of ventral hernia mesh repair. 8. Retroperitoneal adenopathy may represent metastatic disease. Chest 1view Chest 1view EXAM: XR CHEST 1 VIEW 05/30 - [facility] DX DX /2018 - Medical This report was dictated by a [employer] Supervisor/Fellow. I have personally reviewed the images as Center well as the Resident's interpretation and agree with the findings. DATE: 05/30/2018 3:50 PM CDT Read by: Real Renee MD Resident: Real Renee MD Dictated Date/time: 05/30/18 16:23 Electronically Signed by: Jeffery Olivo MD 05/30/18 16:37 FINAL REPORT INDICATION: - Undifferentiated Sepsis COMPARISON: None. TECHNIQUE: AP chest. FINDINGS: Lines, tubes and hardware: Tip of the left chest wall port projects at the cavoatrial junction. Lungs and pleura: The lungs are clear. No pleural effusion or pneumothorax. Heart and mediastinum: The heart size is normal for technique. The mediastinal contours are normal. Pulmonary vascularity is normal. Bones: No acute abnormality. IMPRESSION: No acute cardiopulmonary abnormality. UT SECTION: ER Vital Signs Vital Sign Value Date Comments Source Encounters Location Location Encounter Encounter Reason Attending ADM DC Status Source Details Type Number For Provider Date Date Visit Procedures Procedure Code Date Perfomer Comments Source
--- OUTSIDE RECORDS SUMMARY | 2018-07-02 12:54 | XMS REPORT | Clinical Summary ---
:1960 Author Organization [facility] Address [address] [place] [address] Care Team Providers Name Role Phone Unavailable Primary Care Provider Unavailable Allergies No Known Allergies Current Medications Prescription Sig. Disp. Refills Start Date End Date Status tamsulosin (FLOMAX) Take 1 capsule Active 0.4 mg every day by capsule,extended oral route for release 24hr 90 days. pantoprazole Take 1 tablet 30 tablet 1 02/19/2018 Active (PROTONIX) 40 MG EC (40 mg total) tablet by mouth daily. HYDROcodone-acetamin Take 2 tablets Active ophen (NORCO) 10-325 by mouth every mg per tablet 6 (six) hours as needed for moderate pain. levoFLOXacin Take 500 mg by Active (LEVAQUIN) 500 MG mouth daily. tablet capecitabine Take by mouth 2 Active (XELODA) 500 mg (two) times a chemo tablet day. Patient takes 3 pills in the daytime and 4 pills at night. 2 weeks on then one week off then the cycle repeats. traMADol (ULTRAM) 50 Take 50 mg by 11/22/19 Discontinued mg tablet mouth every 6 18 (six) hours as needed for moderate pain. omeprazole Take 20 mg by 11/22/19 Discontinued (PriLOSEC) 20 MG mouth daily. 18 capsule ondansetron (ZOFRAN) Take 1 tablet 50 tablet 0 08/12/2017 09/11/19 8 MG (8 mg total) by 18 tabletIndications: mouth every 6 Rectal cancer (HCC) (six) hours as needed for nausea or vomiting for up to 30 days. capecitabine Take 4 tablets 200 tablet 0 08/12/2017 11/21/19 (XELODA) 500 mg (2,000 mg) by 18 chemo mouth every tabletIndications: morning and Rectal cancer (HCC) evening on days of radiation. HYDROcodone-acetamin Take 1 tablet 100 tablet 08/12/2017 08/12/20 Discontinued ophen (NORCO) 5-325 by mouth every 17 mg per 4 (four) hours tabletIndications: as needed for Rectal cancer (HCC) moderate pain for up to 30 days. Max Daily Amount: 6 tablets HYDROcodone-acetamin Take 1 tablet 100 tablet 08/12/2017 09/11/19 ophen (NORCO) 5-325 by mouth every 18 mg per 4 (four) hours tabletIndications: as needed for Rectal cancer (HCC) moderate pain for up to 30 days. [...] daily tabletIndications: for 14 days, Rectal cancer (HCC) then take 1 week off. capecitabine Take [...] moderate pain for up to 30 days. acetaminophen-codein Take 1 tablet 04/21/20 Discontinued e (TYLENOL WITH by mouth every 18 CODEINE #4) 300-60 4 (four) hours mg per tablet as needed for moderate pain. capecitabine Take by mouth. 05/22/20 Discontinued (XELODA) 500 mg Take 3 tabs in 18 chemo tablet the AM and 4 Tabs in the PM daily for 14 days then one week off ciprofloxacin Take 1 tablet 14 tablet 0 03/21/2018 03/25/20 Discontinued (CIPRO) 500 MG (500 mg total) 18 tablet by mouth 2 (two) times a day for 7 days. ondansetron ODT Take 1 tablet 30 tablet 1 04/25/2018 05/25/20 (ZOFRAN-ODT) 4 MG (4 mg total) by 18 disintegrating mouth every 8 tablet (eight) hours as needed for nausea or vomiting for up to 30 days. levoFLOXacin Take 1 tablet 5 tablet 0 04/25/2018 04/30/20 (LEVAQUIN) 500 MG (500 mg total) 18 tablet by mouth daily for 5 days. Active Problems Problem Noted Date Weakness 05/22/2018 Perirectal abscess 04/22/2018 Fever 01/23/2018 CA of rectum (HCC) 12/03/2017 Rectal cancer (HCC) 07/30/2017 Encounters Date Type Specialty Care Team Description 05/22/2018 Hospital Encounter General Internal Alfredito Venegas ( Primary Dx); - Medicine MD Les Hyponatremia; 05/29/2018 Judit Allan Acute renal failure, unspecified acute renal failure type; MD Danielle Partial intestinal obstruction, unspecified cause; Machineni, Rectal abscess MD Evonne 05/15/2018 Telephone Oncology Monik Harris RN 05/15/2018 Orders Only Oncology Candy Peña Nic 04/21/2018 Hospital Encounter General Surgery Ilir Berry Urinary tract infection without hematuria, site unspecified (Primary Dx); - MD Jeremiah Rectal cancer 04/25/2018 04/21/2018 Emergency Emergency Medicine - 04/22/2018 04/21/2018 Intake Access N/A 04/18/2018 Orders Only Oncology Anibal, Malignant neoplasm JERILYN Marquez of rectum (Primary Dx) 04/17/2018 Office Visit General Surgery Lisandro Velázquez Rectal cancer MD Art (Primary Dx) Kaye Trevino NP-C 04/09/2018 Office Visit General Surgery Lisandro Velázquez [...] Monik Harris RN 03/21/2018 Telephone Oncology Alma Barnett MA 03/21/2018 Orders Only Oncology Monik Harris RN 03/20/2018 Office Visit General Surgery Lisandro Velázquez Rectal cancer MD Art (Primary Dx) 03/20/2018 Telephone Oncology Chivo Leung MD 03/14/2018 Infusion Oncology Chivo Leung Rectal cancer MD Johnson (Primary Dx) Xochitl Quiñonez, RN 03/11/2018 Orders Only Oncology Monik Harris [...] Rectal cancer MD Art (Primary Dx) Kaye Trevino, 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 02/19/2018 Telephone Oncology Chivo Leung MD 02/18/2018 [...] bx and snare 01/29/2018 Anesthesia Event Gastroenterology Hari, Wesley Vaz MD 01/28/2018 Office Visit General Surgery Alagugurusamy, Rectal cancer ( Primary Dx); Kaye Rectal pain TAMMY Ventura Eric Mitchell, MD 01/24/2018 Office Visit General Surgery Lisandro Velázquez Rectal cancer MD Art (Primary Dx) 01/22/2018 Hospital Encounter Orthopedic Surgery Deep Koroma Fever, unspecified fever cause (Primary Dx); - MD Stephani Rectal pain; 01/24/2018 Lenin John Rectal bleeding; MD Rashel Acute renal failure, unspecified acute renal failure type 01/16/2018 Office Visit General Surgery Alagugurusamy, Rectal cancer Kaye (Primary Dx) TAMMY Ventura Eric Mitchell, MD 01/09/2018 Office Visit General Surgery Velázquez, Lisandro Rectal cancer (Primary Dx); MD Art Adverse [...] of the abdomen 12/20/2017 Documentation General Surgery Alagugurusamy, TAMMY Hilton 12/17/2017 Office Visit General Surgery Farheenmy, CA of rectum Kaye (Primary Dx) TAMMY Ventura 12/13/2017 Office Visit General Surgery Belinda, Ana ( Primary Dx); Kaye Rectal cancer TAMMY [...] BOWEL RESECTION 11/28/2017 Lab Lab Lisandro Velázquez Rectal antolin Cordova MD 11/27/2017 Orders Only General Surgery Lisandro [...] (Primary Dx) 08/12/2017 Orders Only Oncology Sofia Watson, Rectal cancer RN (Primary Dx) 08/12/2017 Orders [...] Fecal urgency 08/06/2017 Procedure Pass Radiology after 07/01/2017 Family History Medical History Relation Name Comments Lung cancer Father Asbestosis Relation Name Status Comments Father Social History Tobacco Use Types Packs/Day Years Used Date Never Smoker Smokeless Tobacco: Never Used Alcohol Use Drinks/Week oz/Week Comments No 4 Standard drinks or equivalent 2.4 4 cans of beer per week Sex Assigned at Date Recorded Not on file Last Filed Vital Signs Vital Sign Reading Time Taken Blood Pressure 115/76 05/29/2018 3:18 PM CDT Pulse 137 05/29/2018 3:18 PM CDT Temperature 36.4 C (97.5 F) 05/29/2018 3:18 PM CDT Respiratory Rate 20 05/29/2018 3:18 PM CDT Oxygen Saturation 100% 05/29/2018 3:18 PM CDT Inhaled Oxygen Concentration - - Weight 83 kg (182 lb 15.7 oz) 05/27/2018 5:26 AM CDT Height 188 cm (6' 2") 05/26/2018 8:00 AM CDT Body Mass Index 23.49 05/27/2018 5:26 AM CDT Plan of Treatment Health Maintenance Due Date Last Done Comments SHINGRIX VACCINE (#1) 02/12/2012 INFLUENZA VACCINE 04/09/2018 COLON CANCER SCREENING 07/30/2027 07/30/2017 Implants Implanted Type Area Real Estate Accountant Device Expiration Model / Identifier Date Serial / Lot Port Imlpntbl Smart Port W/ Dtchd 0.4ml 6.6fr 55cm W/ Sheath - [id number] Implantable N/A: [employer]GI[employer]NAMICS 11/06/2020 [id number] / Implanted: 02/20/2018 (Quantity not on file) Infusion Ports N/A INC / or Accessories [id number] Procedures Procedure Name Priority Date/Time Associated Diagnosis Comments ESTIMATED GFR Routine 05/29/2018 4:26 Results for this AM CDT procedure are in the results section. BASIC METABOLIC PANEL Routine 05/29/2018 4:26 Results for this AM CDT procedure are in the results section. HC COMPLETE BLD COUNT Routine 05/29/2018 4:26 Results for this W/AUTO DIFF AM CDT procedure are in the results section. URINALYSIS SCREEN AND Routine 05/28/2018 5:30 Results for this MICROSCOPY, WITH REFLEX PM CDT procedure are in TO CULTURE the results section. GRAM STAIN Routine 05/28/2018 5:30 Results for this PM CDT procedure are in the results section. URINE CULTURE Routine 05/28/2018 5:30 Results for this PM CDT procedure are in the results section. MANUAL DIFFERENTIAL Routine 05/28/2018 10:25 Results for this AM CDT procedure are in the results section. ESTIMATED GFR Routine 05/28/2018 10:25 Results for this AM CDT procedure are in the results section. BASIC METABOLIC PANEL Routine 05/28/2018 10:25 Results for this AM CDT procedure are in the results section. CBC WITH PLATELET AND Routine 05/28/2018 10:25 Results for this DIFFERENTIAL AM CDT procedure are in the results section. POC GLUCOSE Routine 05/27/2018 9:21 Results for this AM CDT procedure are in the results section. SMEAR REVIEW Timed 05/27/2018 4:38 Results for this AM CDT procedure are in the results section. ESTIMATED GFR Timed 05/27/2018 4:38 Results for this AM CDT procedure are in the results section. IONIZED CALCIUM Timed 05/27/2018 4:38 Results for this AM CDT procedure are in the results section. PHOSPHORUS LEVEL Timed 05/27/2018 4:38 Results for this AM CDT procedure are in the results section. HC COMPLETE BLD COUNT Timed 05/27/2018 4:38 Results for this W/AUTO DIFF AM CDT procedure are in the results section. MAGNESIUM LEVEL Timed 05/27/2018 4:38 Results for this AM CDT procedure are in the results section. COMPREHENSIVE METABOLIC Timed 05/27/2018 4:38 Results for this PANEL AM CDT procedure are in the results section. BLOOD CULTURE, AEROBIC Routine 05/27/2018 4:30 Results for this & ANAEROBIC AM CDT procedure are in the results section. HEMOGLOBIN & HEMATOCRIT Timed 05/27/2018 12:48 Results for this AM CDT procedure are in the results section. HEMOGLOBIN & HEMATOCRIT Timed 05/26/2018 9:10 Results for this PM CDT procedure are in the results section. POC GLUCOSE Routine 05/26/2018 7:28 Results for this PM CDT procedure are in the results section. POC GLUCOSE Routine 05/26/2018 3:44 Results for this PM CDT procedure are in the results section. BLOOD CULTURE, AEROBIC Routine 05/26/2018 3:25 Results for this & ANAEROBIC PM CDT procedure are in the results section. HEMOGLOBIN & HEMATOCRIT Routine 05/26/2018 12:37 Results for this PM CDT procedure are in the results section. POC GLUCOSE Routine 05/26/2018 11:48 Results for this AM CDT procedure are in the results section. HEMOGLOBIN & HEMATOCRIT Routine 05/26/2018 8:40 Results for this AM CDT procedure are in the results section. POC GLUCOSE Routine 05/26/2018 7:03 Results for this AM CDT procedure are in the results section. TRANSFUSE RED BLOOD Routine 05/26/2018 6:04 CELLS AM CDT SMEAR REVIEW Timed 05/26/2018 3:15 Results for this AM CDT procedure are in the results section. ESTIMATED GFR Timed 05/26/2018 3:15 Results for this AM CDT procedure are in the results section. IONIZED CALCIUM Timed 05/26/2018 3:15 Results for this AM CDT procedure are in the results section. PHOSPHORUS LEVEL Timed 05/26/2018 3:15 Results for this AM CDT procedure are in the results section. MAGNESIUM LEVEL Timed 05/26/2018 3:15 Results for this AM CDT procedure are in the results section. BASIC METABOLIC PANEL Timed 05/26/2018 3:15 Results for this AM CDT procedure are in the results section. HC COMPLETE BLD COUNT Timed 05/26/2018 3:15 Results for this W/AUTO DIFF AM CDT procedure are in the results section. POC GLUCOSE Routine 05/25/2018 11:47 Results for this PM CDT procedure are in the results section. POC GLUCOSE Routine 05/25/2018 7:23 Results for this PM CDT procedure are in the results section. ESTIMATED GFR Routine 05/25/2018 6:45 Results for this PM CDT procedure are in the results section. BASIC METABOLIC PANEL Routine 05/25/2018 6:45 Results for this PM CDT procedure are in the results section. HC COMPLETE BLD COUNT Routine 05/25/2018 6:45 Results for this W/AUTO DIFF PM CDT procedure are in the results section. POC GLUCOSE Routine 05/25/2018 4:11 Results for this PM CDT procedure are in the results section. POC GLUCOSE Routine 05/25/2018 11:42 Results for this AM CDT procedure are in the results section. POC GLUCOSE Routine 05/25/2018 8:06 Results for this AM CDT procedure are in the results section. POC GLUCOSE Routine 05/25/2018 4:08 Results for this AM CDT procedure are in the results section. ESTIMATED GFR Routine 05/25/2018 2:08 Results for this AM CDT procedure are in the results section. PROTHROMBIN TIME WITH Routine 05/25/2018 2:08 Results for this INR AM CDT procedure are in the results section. PHOSPHORUS LEVEL Routine 05/25/2018 2:08 Results for this AM CDT procedure are in the results section. MAGNESIUM LEVEL Routine 05/25/2018 2:08 Results for this AM CDT procedure are in the results section. IONIZED CALCIUM Routine 05/25/2018 2:08 Results for this AM CDT procedure are in the results section. COMPREHENSIVE METABOLIC Routine 05/25/2018 2:08 Results for this PANEL AM CDT procedure are in the results section. HC COMPLETE BLD COUNT Routine 05/25/2018 2:08 Results for this W/AUTO DIFF AM CDT procedure are in the results section. POC GLUCOSE Routine 05/24/2018 11:50 Results for this PM CDT procedure are in the results section. POC GLUCOSE Routine 05/24/2018 8:32 Results for this PM CDT procedure are in the results section. ESTIMATED GFR Routine 05/24/2018 5:08 Results for this PM CDT procedure are in the results section. THYROID STIMULATING Routine 05/24/2018 5:08 Results for this HORMONE PM CDT procedure are in the results section. AMMONIA LEVEL Routine 05/24/2018 5:08 Results for this PM CDT procedure are in the results section. BASIC METABOLIC PANEL Routine 05/24/2018 5:08 Results for this PM CDT procedure are in the results section. PREPARE RBC Timed 05/24/2018 4:24 Results for this PM CDT procedure are in the results section. PREPARE RBC Timed 05/24/2018 4:24 Results for this PM CDT procedure are in the results section. TYPE AND SCREEN Timed 05/24/2018 4:24 Results for this PM CDT procedure are in the results section. ARTERIAL BLOOD GAS Routine 05/24/2018 4:20 Results for this PM CDT procedure are in the results section. POC GLUCOSE Routine 05/24/2018 4:13 Results for this PM CDT procedure are in the results section. CT STROKE BRAIN WO STAT 05/24/2018 3:58 Results for this CONTRAST PM CDT procedure are in the results section. POC GLUCOSE Routine 05/24/2018 3:39 Results for this PM CDT procedure are in the results section. LACTIC ACID LEVEL Routine 05/24/2018 2:00 Results for this PM CDT procedure are in the results section. ESTIMATED GFR Routine 05/24/2018 2:00 Results for this PM CDT procedure are in the results section. PHOSPHORUS LEVEL Routine 05/24/2018 2:00 Results for this PM CDT procedure are in the results section. MAGNESIUM LEVEL Routine 05/24/2018 2:00 Results for this PM CDT procedure are in the results section. COMPREHENSIVE METABOLIC Routine 05/24/2018 2:00 Results for this PANEL PM CDT procedure are in the results section. CBC WITH PLATELET AND Routine 05/24/2018 2:00 Results for this DIFFERENTIAL PM CDT procedure are in the results section. CONSULT TO OSTOMY CARE Routine 05/24/2018 11:49 NURSE AM CDT CREATININE LEVEL, Routine 05/24/2018 3:18 Results for this URINE, RANDOM AM CDT procedure are in the results section. SODIUM LEVEL, URINE, Routine 05/24/2018 3:18 Results for this RANDOM AM CDT procedure are in the results section. PROTEIN, URINE, RANDOM Routine 05/24/2018 3:18 Results for this AM CDT procedure are in the results section. URIC ACID LEVEL Routine 05/23/2018 3:00 Results for this PM CDT procedure are in the results section. ESTIMATED GFR Routine 05/23/2018 5:12 Results for this AM CDT procedure are in the results section. MAGNESIUM LEVEL Routine 05/23/2018 5:12 Results for this AM CDT procedure are in the results section. COMPREHENSIVE METABOLIC Routine 05/23/2018 5:12 Results for this PANEL AM CDT procedure are in the results section. HC COMPLETE BLD COUNT Routine 05/23/2018 5:12 Results for this W/AUTO DIFF AM CDT procedure are in the results section. ESTIMATED GFR Routine 05/22/2018 11:29 Results for this PM CDT procedure are in the results section. BASIC METABOLIC PANEL Routine 05/22/2018 11:29 Results for this PM CDT procedure are in the results section. SODIUM LEVEL, URINE, Routine 05/22/2018 9:20 Results for this RANDOM PM CDT procedure are in the results section. URINALYSIS SCREEN AND STAT 05/22/2018 9:20 Results for this MICROSCOPY, WITH REFLEX PM CDT procedure are in TO CULTURE the results section. GRAM STAIN STAT 05/22/2018 9:20 Results for this PM CDT procedure are in the results section. URINE CULTURE STAT 05/22/2018 9:20 Results for this PM CDT procedure are in the results section. OSMOLALITY, SERUM Routine 05/22/2018 8:00 Results for this PM CDT procedure are in the results section. B NATRIURETIC PEPTIDE STAT 05/22/2018 8:00 Results for this PM CDT procedure are in the results section. TROPONIN Timed 05/22/2018 7:12 Results for this PM CDT procedure are in the results section. LIPASE LEVEL STAT 05/22/2018 7:12 Results for this PM CDT procedure are in the results section. LACTIC ACID LEVEL Routine 05/22/2018 7:12 Results for this PM CDT procedure are in the results section. BLOOD CULTURE, AEROBIC Routine 05/22/2018 7:12 Results for this & ANAEROBIC PM CDT procedure are in the results section. ECG 12-LEAD STAT 05/22/2018 5:50 Results for this PM CDT procedure are in the results section. CT RENAL STONE PROTOCOL STAT 05/22/2018 5:42 Results for this PM CDT procedure are in the results section. XR CHEST 1 VW PORTABLE STAT 05/22/2018 5:25 Results for this PM CDT procedure are in the results section. ESTIMATED GFR STAT 05/22/2018 5:23 Results for this PM CDT procedure are in the results section. HC COMPLETE BLD COUNT STAT 05/22/2018 5:23 Results for this W/AUTO DIFF PM CDT procedure are in the results section. COMPREHENSIVE METABOLIC STAT 05/22/2018 5:23 Results for this PANEL PM CDT procedure are in the results section. TRANSFUSE RED BLOOD Routine 05/14/2018 5:54 CELLS PM CDT TRANSFUSE RED BLOOD Routine 05/14/2018 5:54 CELLS PM CDT HC COMPLETE BLD COUNT Routine 04/25/2018 7:45 Results for this W/AUTO DIFF AM CDT procedure are in the results section. CBC WITH PLATELET AND Routine 04/25/2018 5:00 Results for this DIFFERENTIAL AM CDT procedure are in the results section. ZZESTIMATED GFR Routine 04/25/2018 4:00 Results for this AM CDT procedure are in the results section. BASIC METABOLIC PANEL Routine 04/25/2018 4:00 Results for this AM CDT procedure are in the results section. URINALYSIS SCREEN AND Routine 04/24/2018 4:33 Results for this MICROSCOPY, WITH REFLEX PM CDT procedure are in TO CULTURE the results section. URINE CULTURE Routine 04/24/2018 4:33 Results for this PM CDT procedure are in the results section. TRANSFUSE RED BLOOD Routine 04/24/2018 1:15 CELLS PM CDT TRANSFUSE RED BLOOD Routine 04/24/2018 12:59 CELLS PM CDT CARCINOEMBRYONIC Routine 04/24/2018 10:03 Results for this ANTIGEN (CEA) AM CDT procedure are in the results section. PREPARE RBC Timed 04/24/2018 6:40 Results for this AM CDT procedure are in the results section. PREPARE RBC Timed 04/24/2018 6:40 Results for this AM CDT procedure are in the results section. TYPE AND SCREEN Timed 04/24/2018 6:40 Results for this AM CDT procedure are in the results section. SMEAR REVIEW Routine 04/24/2018 4:55 Results for this AM CDT procedure are in the results section. HC COMPLETE BLD COUNT Routine 04/24/2018 4:55 Results for this W/AUTO DIFF AM CDT procedure are in the results section. ZZESTIMATED GFR Routine 04/24/2018 4:00 Results for this AM CDT procedure are in the results section. BASIC METABOLIC PANEL Routine 04/24/2018 4:00 Results for this AM CDT procedure are in the results section. HC COMPLETE BLD COUNT Routine 04/23/2018 4:48 Results for this W/AUTO DIFF AM CDT procedure are in the results section. ZZESTIMATED GFR Routine 04/23/2018 4:00 Results for this AM CDT procedure are in the results section. IONIZED CALCIUM Routine 04/23/2018 4:00 Results for this AM CDT procedure are in the results section. PHOSPHORUS LEVEL Routine 04/23/2018 4:00 Results for this AM CDT procedure are in the results section. MAGNESIUM LEVEL Routine 04/23/2018 4:00 Results for this AM CDT procedure are in the results section. COMPREHENSIVE METABOLIC Routine 04/23/2018 4:00 Results for this PANEL AM CDT procedure are in the results section. URINALYSIS SCREEN AND Routine 04/22/2018 11:25 Results for this MICROSCOPY, WITH REFLEX AM CDT procedure are in TO CULTURE the results section. GRAM STAIN Routine 04/22/2018 11:25 Results for this AM CDT procedure are in the results section. URINE CULTURE Routine 04/22/2018 11:25 Results for this AM CDT procedure are in the results section. BLOOD CULTURE, AEROBIC Routine 04/22/2018 10:55 Results for this & ANAEROBIC AM CDT procedure are in the results section. BLOOD CULTURE, AEROBIC Routine 04/22/2018 10:15 Results for this & ANAEROBIC AM CDT procedure are in the results section. UREA NITROGEN, URINE, Routine 04/22/2018 5:00 Results for this RANDOM AM CDT procedure are in the results section. CHLORIDE LEVEL, URINE, Routine 04/22/2018 5:00 Results for this RANDOM AM CDT procedure are in the results section. CREATININE LEVEL, Routine 04/22/2018 5:00 Results for this URINE, RANDOM AM CDT procedure are in the results section. URINE EOSINOPHILS Routine 04/22/2018 5:00 Results for this AM CDT procedure are in the results section. PROTEIN, URINE, RANDOM Routine 04/22/2018 5:00 Results for this AM CDT procedure are in the results section. SODIUM LEVEL, URINE, Routine 04/22/2018 5:00 Results for this RANDOM AM CDT procedure are in the results section. PARTIAL THROMBOPLASTIN Routine 04/22/2018 12:30 Results for this TIME (PTT) AM CDT procedure are in the results section. PROTHROMBIN TIME WITH Routine 04/22/2018 12:30 Results for this INR AM CDT procedure are in the results section. HC COMPLETE BLD COUNT Routine 04/22/2018 12:30 Results for this W/AUTO DIFF AM CDT procedure are in the results section. ZZESTIMATED GFR Routine 04/22/2018 12:07 Results for this AM CDT procedure are in the results section. COMPREHENSIVE METABOLIC Routine 04/22/2018 12:07 Results for this PANEL AM CDT procedure are in the results section. CT ABD/PELVIC EXTERNAL Routine 04/21/2018 7:11 Results for this STUDY PM CDT procedure are in the results section. XR CHEST EXTERNAL STUDY Routine 04/21/2018 5:01 Results for this PM CDT procedure are in the results section. SMEAR REVIEW STAT 03/25/2018 11:29 Results for this AM CDT procedure are in the results section. VITAMIN D 25 HYDROXY STAT 03/25/2018 11:29 Malignant neoplasm of Results for this LEVEL AM CDT rectum procedure are in the results section. ZZESTIMATED GFR STAT 03/25/2018 11:29 Results for this [...] CDT procedure are in the results section. ZZESTIMATED GFR STAT 03/14/2018 10:44 Results for this AM CDT procedure are in the results section. MAGNESIUM LEVEL STAT 03/14/2018 10:44 Rectal cancer Results for this AM CDT procedure are in the results section. COMPREHENSIVE METABOLIC STAT 03/14/2018 10:44 Rectal cancer Results for this PANEL AM CDT procedure are in the results section. ZZESTIMATED GFR STAT 02/21/2018 10:50 Results for this [...] rectum procedure are in the results section. ZZESTIMATED GFR Routine 02/13/2018 4:07 Results for this [...] CDT procedure are in the results section. ZZESTIMATED GFR Routine 01/24/2018 4:00 Results for this [...] CDT procedure are in the results section. ZZESTIMATED GFR Routine 01/23/2018 4:58 Results for this [...] CDT procedure are in the results section. ZZESTIMATED GFR STAT 01/22/2018 8:00 Results for this [...] CDT procedure are in the results section. ZZESTIMATED GFR STAT 12/10/2017 7:42 Results for this [...] CDT procedure are in the results section. ZZESTIMATED GFR Routine 12/09/2017 4:00 Results for this [...] CDT procedure are in the results section. ZZESTIMATED GFR Routine 12/08/2017 4:00 Results for this [...] CDT procedure are in the results section. ZZESTIMATED GFR Routine 12/07/2017 4:00 Results for this [...] CDT procedure are in the results section. ZZESTIMATED GFR Routine 12/06/2017 3:45 Results for this [...] CDT procedure are in the results section. ZZESTIMATED GFR Routine 12/05/2017 4:00 Results for this [...] CDT procedure are in the results section. ZZESTIMATED GFR Routine 12/04/2017 4:00 Results for this [...] CARE Routine 12/03/2017 10:58 NURSE PM CDT OK AN ELECTIVE Routine 12/03/2017 5:00 ENDOTRACHEAL AIRWAY PM CDT Procedure Note - John Parks CRNA - 12/03/2017 5:00 PM CDT Airway Date/Time: 12/03/2017 4:28 PM Performed by: JOHN PARKS Authorized by: NETTIE MAE Location: OR Urgency: Elective Difficult Airway: No Anesthesiologist: NETTIE MAE Resident/SCHOOL CURRICULUM DEVELOPER/AA: JOHN PARKS Performed by: resident/SCHOOL CURRICULUM DEVELOPER/AA Preoxygenated with 100% O2: Yes C-spine Precautions [...] CDT procedure are in the results section. ZZESTIMATED GFR Routine 11/21/2017 8:35 AM Results for [...] 1:40 PM Rectal cancer Results for this [employer] procedure are in the results section. after 07/01/2017 Results Estimated GFR (05/29/2018 4:26 AM)Only the most recent of11 resultswithin the time period is included. Estimated GFR 53 (A) mL/min/1.73 m2 [facility] DEPARTMENT OF Comment: PATHOLOGY AND GENOMIC CatergoryUnitsInterpretation MEDICINE G1 >=90 Normal or high G2 60-89Mildly decreased [id number] to moderately decreased [id number] to severely decreased G4 15-29Severely decreased G5 <15Kidney failure The eGFR was calculated using the Chronic Kidney Disease Epidemiology Collaboration (CKD-EPI) equation. Interpretation is based on recommendations of the National Kidney Foundation-Kidney Disease Outcomes Quality Initiative (NKF-KDOQI) published in 2014. Specimen Plasma specimen Performing Organization Address City/State/Zipcode Phone Number [facility] [place] [place] [address], [address] [place] [address] [address] [facility] CBC with platelet and differential (05/29/2018 4:26 AM)Only the most recent of33 resultswithin the time period is included. WBC 4.76 4.50 - 11.00 k/uL [facility] DEPARTMENT OF PATHOLOGY AND GENOMIC MEDICINE RBC 2.79 (L) 4.40 - 6.00 m/uL [facility] DEPARTMENT OF PATHOLOGY AND GENOMIC MEDICINE HGB 8.2 (L) 14.0 - 18.0 g/dL [facility] DEPARTMENT OF PATHOLOGY AND GENOMIC MEDICINE HCT 25.6 (L) 41.0 - 51.0 % [facility] DEPARTMENT OF PATHOLOGY AND GENOMIC MEDICINE MCV 91.8 82.0 - 100.0 fL [facility] DEPARTMENT OF PATHOLOGY AND GENOMIC MEDICINE MCH 29.4 27.0 - 34.0 pg [facility] DEPARTMENT OF PATHOLOGY AND GENOMIC MEDICINE MCHC 32.0 31.0 - 37.0 g/dL [facility] DEPARTMENT OF PATHOLOGY AND GENOMIC MEDICINE RDW - SD 63.4 (H) 37.0 - 55.0 fL [facility] DEPARTMENT OF PATHOLOGY AND GENOMIC MEDICINE MPV 9.1 8.8 - 13.2 fL [facility] DEPARTMENT OF PATHOLOGY AND GENOMIC MEDICINE Platelet count 110 (L) 150 - 400 k/uL [facility] DEPARTMENT OF PATHOLOGY AND GENOMIC MEDICINE Nucleated RBC 0.00 /100 WBC [facility] DEPARTMENT OF PATHOLOGY AND GENOMIC MEDICINE Neutrophils 72.7 (H) 39.0 - 69.0 % [facility] DEPARTMENT OF PATHOLOGY AND GENOMIC MEDICINE Lymphocytes 5.9 (L) 25.0 - 45.0 % [facility] DEPARTMENT OF PATHOLOGY AND GENOMIC MEDICINE Monocytes 20.4 (H) 0.0 - 10.0 % [facility] DEPARTMENT OF PATHOLOGY AND GENOMIC MEDICINE Eosinophils 0.6 0.0 - 5.0 % [facility] DEPARTMENT OF PATHOLOGY AND GENOMIC MEDICINE Basophils 0.0 0.0 - 1.0 % [facility] DEPARTMENT OF PATHOLOGY AND GENOMIC MEDICINE Immature granulocytes 0.4Comment: 0.0 - 1.0 % [facility] DEPARTMENT OF "Immature PATHOLOGY AND GENOMIC granulocytes" MEDICINE (promyelocytes, myelocytes, metamyelocytes) Specimen Blood Performing Organization Address City/[facility] [place] [facility] Cent[facility] Phone Number [facility] DEPARTMENT [place] [address], [facility] [address] [place] [address] PATHOLOGY AND GENOMIC MEDICINE Basic metabolic panel (05/29/2018 4:26 AM)Only the most recent of17 resultswithin the time period is included. Sodium 135 135 - 148 mEq/L [facility] DEPARTMENT OF PATHOLOGY AND GENOMIC MEDICINE Potassium 4.0 3.5 - 5.0 mEq/L [facility] DEPARTMENT OF PATHOLOGY AND GENOMIC MEDICINE Chloride 98 98 - 112 mEq/L [facility] DEPARTMENT OF PATHOLOGY AND GENOMIC MEDICINE CO2 22 (L) 24 - 31 mEq/L [facility] DEPARTMENT OF PATHOLOGY AND GENOMIC MEDICINE Anion gap 15 7 - 15 mEq/L [facility] DEPARTMENT OF PATHOLOGY AND GENOMIC MEDICINE BUN 35 (H) 6 - 20 mg/dL [facility] DEPARTMENT OF PATHOLOGY AND GENOMIC MEDICINE Creatinine 1.65 (H) 0.70 - 1.20 mg/dL [facility] DEPARTMENT OF PATHOLOGY AND GENOMIC MEDICINE Glucose 95 65 - 99 mg/dL [facility] DEPARTMENT OF PATHOLOGY AND GENOMIC MEDICINE Calcium 8.4 8.3 - 10.2 mg/dL [facility] DEPARTMENT OF PATHOLOGY AND GENOMIC MEDICINE Specimen Plasma specimen Performing Organization Address City/[facility] [place] [facility] Centercode Phone Number [place] [address], [facility] [address] [place] [address] PATHOLOGY AND GENOMIC MEDICINE Urinalysis screen and microscopy, with reflex to culture (05/28/2018 5:30 PM) Only the most recent of9 resultswithin the time period is included. Specimen site [place] [facility] DEPARTMENT OF PATHOLOGY AND GENOMIC MEDICINE Color, UA Yellow [facility] DEPARTMENT OF PATHOLOGY AND GENOMIC MEDICINE Appearance, UA Hazy [facility] DEPARTMENT OF PATHOLOGY AND GENOMIC MEDICINE Specific gravity, UA 1.016 1.001 - 1.035 [facility] DEPARTMENT OF PATHOLOGY AND GENOMIC MEDICINE pH, UA 5.0 5.0 - 8.5 [facility] DEPARTMENT OF PATHOLOGY AND GENOMIC MEDICINE Protein, UA 1+ (A) Negative [facility] DEPARTMENT OF PATHOLOGY AND GENOMIC MEDICINE Glucose, UA Negative Negative [facility] DEPARTMENT OF PATHOLOGY AND GENOMIC MEDICINE Ketones, UA Negative Negative [facility] DEPARTMENT OF PATHOLOGY AND GENOMIC MEDICINE Bilirubin, UA Negative Negative [facility] DEPARTMENT OF PATHOLOGY AND GENOMIC MEDICINE Blood, UA Small (A) Negative [facility] DEPARTMENT OF PATHOLOGY AND GENOMIC MEDICINE Nitrite, UA Negative Negative [facility] DEPARTMENT OF PATHOLOGY AND GENOMIC MEDICINE Urobilinogen, UA <2.0 <2.0 [facility] DEPARTMENT OF PATHOLOGY AND GENOMIC MEDICINE Leukocyte esterase, UA Trace (A) Negative [facility] DEPARTMENT OF PATHOLOGY AND GENOMIC MEDICINE Epithelial cells, UA 1 /HPF [facility] DEPARTMENT OF PATHOLOGY AND GENOMIC MEDICINE WBC, UA 3 0 - 5 /HPF [facility] DEPARTMENT OF PATHOLOGY AND GENOMIC MEDICINE RBC, UA 3 0 - 5 /HPF [facility] DEPARTMENT OF PATHOLOGY AND GENOMIC MEDICINE Bacteria, UA Few None seen [facility] DEPARTMENT OF PATHOLOGY AND GENOMIC MEDICINE Yeast, UA None seen [facility] DEPARTMENT OF PATHOLOGY AND GENOMIC MEDICINE Yeast with pseudohyphae, UA None seen [facility] DEPARTMENT OF PATHOLOGY AND GENOMIC MEDICINE Amorphous crystals Few [facility] DEPARTMENT OF PATHOLOGY AND GENOMIC MEDICINE Specimen Urine Performing Organization Address City/[facility]/Zipcode Phone Number [facility] [place] [address], [address] [place] [address] PATHOLOGY AND GENOMIC MEDICINE Gram stain (05/28/2018 5:30 PM)Only the most recent of6 resultswithin the time period is included. Gram stain result No WBC's or organisms seen. [facility] DEPARTMENT OF PATHOLOGY Comment: AND GENOMIC MEDICINE Specimen Information Specimen Source: Urine Specimen Site: [place] Specimen Urine - [place] Performing Organization Address City/State/Zipcode Phone Number [facility] DEPARTMENT OF PATHOLOGY AND [address] [place] [phone] GENOMIC MEDICINE Urine culture (05/28/2018 5:30 PM)Only the most recent of9 resultswithin the time period is included. Urine culture isolate Gram positive erendira [facility] DEPARTMENT OF PATHOLOGY <10-1 cfu/ml AND GENOMIC MEDICINE (A) Comment: Specimen Information Specimen Source: Urine Specimen Site: [place] Specimen Urine - [place] Performing Organization Address City/State/Zipcode Phone Number [facility] DEPARTMENT OF PATHOLOGY AND [address] [place] [address] GENOMIC MEDICINE Manual differential (05/28/2018 10:25 AM) Manual differential PERFORMED [facility] DEPARTMENT OF PATHOLOGY AND GENOMIC MEDICINE Neutrophils 68.0 39.0 - 69.0 % [facility] DEPARTMENT OF PATHOLOGY AND GENOMIC MEDICINE Lymphocytes 14.0 (L) 25.0 - 45.0 % [facility] DEPARTMENT OF PATHOLOGY AND GENOMIC MEDICINE Monocytes 16.0 (H) 0.0 - 10.0 % [facility] DEPARTMENT OF PATHOLOGY AND GENOMIC MEDICINE Eosinophils 1.0 0.0 - 5.0 % [facility] DEPARTMENT OF PATHOLOGY AND GENOMIC MEDICINE Basophils 0.0 0.0 - 1.0 % [facility] DEPARTMENT OF PATHOLOGY AND GENOMIC MEDICINE Metamyelocytes 1 % [facility] DEPARTMENT OF PATHOLOGY AND GENOMIC MEDICINE Promyelocytes 0 % [facility] DEPARTMENT OF PATHOLOGY AND GENOMIC MEDICINE Nucleated RBC 1 /100 WBC [facility] DEPARTMENT OF PATHOLOGY AND GENOMIC MEDICINE Platelet slide review Decreased (A) [facility] DEPARTMENT OF PATHOLOGY AND GENOMIC MEDICINE Anisocytosis Moderate [facility] DEPARTMENT OF PATHOLOGY AND GENOMIC MEDICINE Tear drop cells Occasional [facility] DEPARTMENT OF PATHOLOGY AND GENOMIC MEDICINE Schistocytes Occasional [facility] DEPARTMENT OF PATHOLOGY AND GENOMIC MEDICINE Spherocytes Occasional [facility] DEPARTMENT OF PATHOLOGY AND GENOMIC MEDICINE Performing Organization Address City/[facility]/[place] [facility] Centercode Phone Number [place] [address], [address] [place] [address] PATHOLOGY AND GENOMIC MEDICINE POC glucose (05/27/2018 9:21 AM)Only the most recent of16 resultswithin the time period is included. POC glucose 117 (H) 65 - 99 mg/dL [facility] DEPARTMENT OF PATHOLOGY AND Comment: GENOMIC MEDICINE Meter ID: [id number] Senior Safety Management Consultant: Misa Westfall Performing Organization Address City/State/Zipcode Phone Number [place] [address], [address] [place] [address] PATHOLOGY AND GENOMIC MEDICINE Smear review (05/27/2018 4:38 AM)Only the most recent of6 resultswithin the time period is included. Platelet slide review Dorie slt decr [facility] OF PATHOLOGY AND GENOMIC MEDICINE Performing Organization Address City/[facility]/Zipcode Phone Number [place] [address], [address] [place] [address] PATHOLOGY AND GENOMIC MEDICINE Phosphorus level (05/27/2018 4:38 AM)Only the most recent of14 resultswithin the time period is included. Phosphorus 2.9 2.4 - 4.5 mg/dL [facility] DEPARTMENT OF PATHOLOGY AND GENOMIC MEDICINE Specimen Plasma specimen Performing Organization Address City/[facility]/[place] [facility] Phone Number [facility] DEPARTMENT OF [facility] [address] [place] [address] PATHOLOGY AND GENOMIC MEDICINE Magnesium level (05/27/2018 4:38 AM)Only the most recent of15 resultswithin the time period is included. Magnesium 1.6 1.6 - 2.6 mg/dL [facility] DEPARTMENT OF PATHOLOGY AND GENOMIC MEDICINE Specimen Plasma specimen Performing Organization Address [facility]/[place] [facility] Phone Number [facility] DEPARTMENT OF [address] [place] [address] PATHOLOGY AND [facility] MEDICINE Ionized calcium (05/27/2018 4:38 AM)Only the most recent of4 resultswithin the time period is included. pH 7.41 [facility] DEPARTMENT OF PATHOLOGY AND GENOMIC MEDICINE Ionized calcium 1.09 (L) 1.11 - 1.32 mmol/L [facility] DEPARTMENT OF PATHOLOGY AND GENOMIC MEDICINE Specimen Plasma specimen Performing Organization Address [facility] [place] Phone Number [facility] DEPARTMENT OF [address] [place] [address] PATHOLOGY AND GENOMIC MEDICINE Comprehensive metabolic panel (05/27/2018 4:38 AM)Only the most recent of13 resultswithin the time period is included. Sodium 133 (L) 135 - 148 mEq/L [facility] DEPARTMENT OF PATHOLOGY AND GENOMIC MEDICINE Potassium 3.4 (L) 3.5 - 5.0 mEq/L [facility] DEPARTMENT OF PATHOLOGY AND GENOMIC MEDICINE Chloride 97 (L) 98 - 112 mEq/L [facility] DEPARTMENT OF PATHOLOGY AND GENOMIC MEDICINE CO2 21 (L) 24 - 31 mEq/L [facility] DEPARTMENT OF PATHOLOGY AND GENOMIC MEDICINE Anion gap 15 7 - 15 mEq/L [facility] DEPARTMENT OF PATHOLOGY AND GENOMIC MEDICINE BUN 59 (H) 6 - 20 mg/dL [facility] DEPARTMENT OF PATHOLOGY AND GENOMIC MEDICINE Creatinine 2.28 (H) 0.70 - 1.20 mg/dL [facility] DEPARTMENT OF PATHOLOGY AND GENOMIC MEDICINE Glucose 104 (H) 65 - 99 mg/dL [facility] DEPARTMENT PATHOLOGY AND GENOMIC MEDICINE Calcium 8.1 (L) 8.3 - 10.2 mg/dL [facility] DEPARTMENT OF PATHOLOGY AND GENOMIC MEDICINE Protein 6.6 6.3 - 8.3 g/dL [facility] DEPARTMENT OF Comment: PATHOLOGY AND GENOMIC 4.6-7.0 g/dL MEDICINE 1 week 4.4-7.6 g/dL 7 months-1year5.1-7.3 g/dL 1-2 years5.6-7.5 g/dL >3 years6.0-8.0 g/dL 18-150 6.3-8.3 g/dL Albumin 2.4 (L) 3.5 - 5.0 g/dL [facility] DEPARTMENT OF PATHOLOGY AND GENOMIC MEDICINE A/G ratio 0.6 (L) 0.7 - 3.8 [facility] DEPARTMENT OF PATHOLOGY AND GENOMIC MEDICINE Alkaline phosphatase 65 40 - 129 U/L [facility] DEPARTMENT OF PATHOLOGY AND GENOMIC MEDICINE AST 39 10 - 50 U/L [facility] DEPARTMENT OF PATHOLOGY AND GENOMIC MEDICINE ALT 8 5 - 50 U/L [facility] DEPARTMENT OF PATHOLOGY AND GENOMIC MEDICINE Total bilirubin 0.5 0.0 - 1.2 mg/dL [facility] DEPARTMENT OF PATHOLOGY AND GENOMIC MEDICINE Specimen Plasma specimen Performing Organization Address City/State/Zipcode Phone Number [place] [id number], [address] [place] [address] PATHOLOGY AND GENOMIC MEDICINE Blood culture, aerobic & anaerobic (05/27/2018 4:30 AM)Only the most recent of9 resultswithin the time period is included. Blood culture isolate No growth after 5 days of incubation. [facility] DEPARTMENT OF Comment: PATHOLOGY AND GENOMIC Specimen Information MEDICINE Specimen Source: Blood Specimen Site: Peripheral Specimen Blood - Peripheral Performing Organization Address City/State/Zipcode Phone Number [facility] DEPARTMENT OF PATHOLOGY AND [address] [place] [address] [facility] Hemoglobin & hematocrit (05/27/2018 12:48 AM)Only the most recent of4 resultswithin the time period is included. HGB 7.5 (L) 14.0 - 18.0 g/dL [facility] PATHOLOGY AND [employer] MEDICINE HCT 22.9 (L) 41.0 - 51.0 % [facility] DEPARTMENT OF PATHOLOGY AND GENOMIC MEDICINE Specimen Blood Performing Organization Address [facility]/[place] [facility] Phone Number [place] [address], [address] [place] [address] PATHOLOGY AND [facility] MEDICINE Transfuse RBC (05/26/2018 6:04 AM)Only the most recent of5 resultswithin the time period is included.Prothrombin time with INR (05/25/2018 2:08 AM)Only the most recent of3 resultswithin the time period is included. Prothrombin time 15.9 (H) 12.0 - 15.0 sec [facility] DEPARTMENT OF PATHOLOGY AND GENOMIC MEDICINE INR 1.3 [facility] DEPARTMENT OF Comment: PATHOLOGY AND GENOMIC The International Normalized Ratio (INR) is a therapeutic MEDICINE monitoring tool for patients who are stable on oral anticoagulant therapy. An INR of 2.0-3.0 is suggested for deep vein thrombosis/pulmonary embolism. Specimen Blood Performing Organization Address [facility] [place] [facility] Phone Number [place] [address], [address] [place] [address] PATHOLOGY AND [facility] Thyroid stimulating hormone (05/24/2018 5:08 PM) TSH 1.333 0.270 - 4.200 uIU/mL [facility] DEPARTMENT OF PATHOLOGY AND GENOMIC MEDICINE Specimen Plasma specimen Performing Organization Address [facility] [place] Phone Number [place] [address], [address] [place] [address] PATHOLOGY AND [facility] Ammonia level (05/24/2018 5:08 PM) Ammonia 17 16 - 60 umol/L [facility] DEPARTMENT OF PATHOLOGY AND GENOMIC MEDICINE Specimen Blood Performing Organization Address [facility] [place] [facility] Phone Number [place] [address], [address] [place] [address] PATHOLOGY AND GENOMIC MEDICINE Prepare RBC, 1 Units (05/24/2018 4:24 PM)Only the most recent of5 resultswithin the time period is included. Product name Red Blood Cells -1, [facility] DEPARTMENT OF [employer] PATHOLOGY AND GENOMIC MEDICINE Unit number [id number] [facility] DEPARTMENT OF PATHOLOGY AND GENOMIC MEDICINE Product code [id number] [facility] DEPARTMENT OF PATHOLOGY AND GENOMIC MEDICINE Dispense status Transfused [facility] DEPARTMENT OF PATHOLOGY AND GENOMIC MEDICINE Blood expiration date [id number] [facility] DEPARTMENT OF PATHOLOGY AND GENOMIC MEDICINE Blood type code 9500 [facility] DEPARTMENT OF PATHOLOGY AND GENOMIC MEDICINE Blood type O NEGATIVE [facility] DEPARTMENT OF PATHOLOGY AND GENOMIC MEDICINE Performing Organization Address [facility] [place] Phone Number [place] [address], [facility] [address] [place] [address] PATHOLOGY AND GENOMIC MEDICINE Type and screen (05/24/2018 4:24 PM)Only the most recent of4 resultswithin the time period is included. ABO grouping O [facility] DEPARTMENT OF PATHOLOGY AND GENOMIC MEDICINE Rh type NEG [facility] DEPARTMENT OF PATHOLOGY AND GENOMIC MEDICINE Antibody screen (gel) NEG [facility] DEPARTMENT OF PATHOLOGY AND GENOMIC MEDICINE Specimen Blood Performing Organization Address [facility] [place] Phone Number [place] [address], [facility] [address] [place] [address] PATHOLOGY AND [facility] Arterial blood gas (05/24/2018 4:20 PM) pH, arterial 7.45 7.35 - 7.45 [facility] DEPARTMENT OF PATHOLOGY AND GENOMIC MEDICINE pCO2, arterial 33 (L) 35 - 45 mmHg [facility] DEPARTMENT OF PATHOLOGY AND GENOMIC MEDICINE pO2, arterial 183 (H) 80 - 90 mmHg [facility] DEPARTMENT OF PATHOLOGY AND GENOMIC MEDICINE Bicarbonate, arterial 22.8 21.0 - 28.0 mmol/L [facility] DEPARTMENT OF PATHOLOGY AND GENOMIC MEDICINE Base excess, arterial -1 -2 - 2 mEq/L [facility] DEPARTMENT OF PATHOLOGY AND GENOMIC MEDICINE O2 saturation, arterial 100 95 - 100 % [facility] DEPARTMENT OF PATHOLOGY AND GENOMIC MEDICINE FiO2, inspired O2% 32.0 [facility] DEPARTMENT OF PATHOLOGY AND GENOMIC MEDICINE Total CO2 22 mEq/L [facility] DEPARTMENT OF PATHOLOGY AND GENOMIC MEDICINE O2 content 10.2 (L) 15.0 - 23.0 VOL % [facility] DEPARTMENT OF PATHOLOGY AND GENOMIC MEDICINE Specimen Blood Performing Organization Address [facility] [place] [facility] Phone Number [place] [address], [facility] [address] [place] [address] PATHOLOGY [address] GENOMIC [facility] CT Stroke Brain Wo Contrast (05/24/2018 3:58 PM) Narrative Performed At EXAMINATION:CT STROKE BRAIN WO CONTRAST HM RADIANT COMPARISON:None CLINICAL HISTORY:Focal neuro deficit6 hrsstroke suspected COMMENTS:Axial noncontrast CT scan slices of the head were obtained. CT imaging was performed with iterative reconstruction technique and/or automated exposure control to reduce radiation dose. FINDINGS:There is no significant sinus opacification. There is mild to moderate involutional change in the brain. IMPRESSION:No acute intracranial hemorrhage or mass effect. The findings were discussed with Dr. Butt who verbalized understanding with read back May 24, 2018 at 1603 hours. [facility]-[id number] Procedure Note Hm Interface, Radiology Results Incoming - 05/24/2018 4:06 PM CDT EXAMINATION: CT STROKE BRAIN WO CONTRAST COMPARISON: None CLINICAL HISTORY: Focal neuro deficit 6 hrs stroke suspected COMMENTS: Axial noncontrast CT scan slices of the head were obtained. CT imaging was performed with iterative reconstruction technique and/or automated exposure control to reduce radiation dose. FINDINGS: There is no significant sinus opacification. There is mild to moderate involutional change in the brain. IMPRESSION: No acute intracranial hemorrhage or mass effect. The findings were discussed with Dr. Butt who verbalized understanding with read back May 24, 2018 at 1603 hours. [facility]-[id number] Performing Organization Address [facility] [place] [facility] Phone Number [facility] [address] [place] [address] Lactic acid level (05/24/2018 2:00 PM)Only the most recent of2 resultswithin the time period is included. Lactic acid 1.3 0.5 - 2.2 mmol/L [facility] DEPARTMENT OF PATHOLOGY AND GENOMIC MEDICINE Specimen Plasma specimen Performing Organization Address [facility] [place] Phone Number [facility] [place] [place] [address], [address] [place] [address] PATHOLOGY AND GENOMIC MEDICINE Sodium level, urine, random (05/24/2018 3:18 AM)Only the most recent of5 resultswithin the time period is included. Sodium, urine, random <14 mEq/L [facility] DEPARTMENT OF PATHOLOGY AND GENOMIC MEDICINE Specimen Urine Performing Organization Address [facility] [place] [facility] Phone Number [facility] [place] [address], [address] [place] [address] PATHOLOGY AND GENOMIC MEDICINE Protein, urine, random (05/24/2018 3:18 AM)Only the most recent of3 resultswithin the time period is included. Protein, urine random 21 mg/dL [facility] DEPARTMENT OF PATHOLOGY AND GENOMIC MEDICINE Specimen Urine Performing Organization Address [facility] [place] Phone Number [facility] DEPARTMENT OF [facility], [address] [place] [address] PATHOLOGY AND GENOMIC MEDICINE Creatinine level, urine, random (05/24/2018 3:18 AM)Only the most recent of4 resultswithin the time period is included. Creatinine, urine, random 46 mg/dL [facility] DEPARTMENT OF PATHOLOGY AND GENOMIC MEDICINE Specimen Urine Performing Organization Address [facility] [place] Phone Number [facility] DEPARTMENT [place] [address], [address] [place] [address] PATHOLOGY AND [facility] MEDICINE Uric acid level (05/23/2018 3:00 PM)Only the most recent of3 resultswithin the time period is included. Uric acid 17.5 (H) 3.4 - 7.0 mg/dL [facility] DEPARTMENT OF PATHOLOGY AND GENOMIC MEDICINE Specimen Plasma specimen Performing Organization Address [facility] [place] Phone Number [place] [address], [facility] [address] [place] [address] PATHOLOGY AND [facility] MEDICINE Osmolality, serum (05/22/2018 8:00 PM) Osmolality 294 275 - 295 mOsm/kg [facility] DEPARTMENT OF PATHOLOGY AND GENOMIC MEDICINE Specimen Blood Performing Organization Address [facility] [place] Phone Number [facility] DEPARTMENT [place] [address], [address] [place] [address] PATHOLOGY AND [facility] B natriuretic peptide (05/22/2018 8:00 PM) BNP 23 0 - 100 pg/mL [facility] DEPARTMENT OF PATHOLOGY AND GENOMIC MEDICINE Specimen Blood Performing Organization Address [facility] [place] Phone Number [facility] DEPARTMENT [place] [address], [address] [place] [address] PATHOLOGY AND [facility] MEDICINE Troponin (05/22/2018 7:12 PM) Troponin <0.006 0.000 - 0.300 ng/mL [facility] DEPARTMENT OF Comment: PATHOLOGY AND GENOMIC 0.30 - 1.49 ng/mlMay indicate increased risk of acute MEDICINE coronary syndrome. >=1.5 ng/mlConsistent with acute myocardial infarction. The diagnostic value of a single normal or non-diagnostic result is questionable.Serial samples at 2-6 hour intervals are required to rule out acute myocardial injury. Specimen Plasma specimen Performing Organization Address City/State/Zipcode Phone Number [facility] [place] [place] [address], [address] [place] [address] PATHOLOGY AND [facility] Lipase level (05/22/2018 7:12 PM) Lipase 74 (H) 13 - 60 U/L [facility] PATHOLOGY AND [facility] Specimen Plasma specimen Performing Organization Address [facility] Phone Number [facility] [place] [address], [address] [place] [address] PATHOLOGY AND [facility] ECG 12 lead (05/22/2018 5:50 PM) Ventricular rate 76 [facility] Atrial rate 76 [facility] OK interval 154 [facility] QRSD interval 80 [facility] QT interval 406 [facility] QTC interval 456 [facility] P axis 1 69 [facility] QRS axis 1 55 [facility] T wave axis 56 [facility] EKG impression Normal sinus rhythm-Septal infarct , age [facility] M[facility] undetermined-Abnormal ECG-No previous ECGs available- Performing Organization Address City/[facility] Phone Number [facility] M[facility] [address] [place] [address] CT Renal Stone Protocol (05/22/2018 5:42 PM)Only the most recent of2 resultswithin the time period is included. Narrative Performed At EXAMINATION:CT RENAL STONE PROTOCOL [facility] CLINICAL HISTORY:Flank Pain TECHNIQUE: Multiple axial images of the abdomen and pelvis were obtained without intravenous administration of iodinated contrast. Sagittal and coronal computerized reformatted images were also obtained. The lack of intravenous contrast reduces the sensitivity of detecting solid organ disease.. All CT images were acquired using low-dose technique with automated exposure control. COMPARISON: None. FINDINGS: Abdomen: 1.Small 3 mm subpleural nodule in the right lower lobe. 2.Numerous low-attenuation lesions scattered throughout the liver largest of which in the right hepatic lobe measures 2.5 x 2.3 cm and is compatible with metastatic disease. 3.Peritoneal stranding and nodularity consistent with peritoneal carcinomatosis. Mild mesenteric edema. There are postsurgical changes in the anterior abdomen with mesh relating to ventral hernia repair. 4.Mild bilateral hydronephrosis is stable when compared to April 21, 2018. Obstructing renal stone is not identified. There is a 1 to 2 mm nonobstructing stone in the left kidney. 5.The gallbladder, pancreas, and adrenal glands appear normal. 6.Right lower quadrant ileostomy. The bowel gas pattern is stable relative to April 21, 2018. There are some slightly distended loops of small bowel in the left abdomen with fecal appearing material proximal to an area of transition and narrowing. Linear opacities in the midabdomen relating to small bowel loops may relate to calcifications or postsurgical change. Findings may relate to a partial obstruction although correlation with ostomy output is recommended.. Pelvis: 1.A small amount of air is present within the bladder. Wall is slightly thickened although unchanged relative to prior. There are no surrounding inflammatory changes. 2.There is extensive presacral soft tissue thickening likely relating to sequela of XRT. A 5 to 6 cm air-fluid collection in the pelvis adjacent to the distal rectum has increased in size when compared to April 21, 2018 suspicious for an abscess. Surrounding wall thickening and inflammatory changes present. 3.Osseous structures are intact. IMPRESSION: 1.Air-fluid collection in the lower pelvis adjacent to the distal rectum concerning for an abscess/contained perforation. There is surrounding thick rind of tissue which may relate to inflammatory change or sequela of prior XRT. 2.Diffuse hepatic metastatic disease secondary to the patient's history of rectal malignancy. The findings are stable relative to April 21, 2018. There is peritoneal carcinomatosis with mild mesenteric edema. 3.Moderately distended small bowel loops in the left abdomen with stool-like material likely relates to sequela of partial obstruction or significantly decreased motility. The appearance is stable from April 21, 2018. The patient has a right lower quadrant ileostomy. 4.Stable mild bilateral hydronephrosis. The bladder wall has a slightly thickened appearance and contains air. [facility]-[id number] Procedure Note Interface, Radiology Results - 05/22/2018 6:13 PM CDT EXAMINATION: CT RENAL STONE PROTOCOL CLINICAL HISTORY: Flank Pain TECHNIQUE: Multiple axial images of the abdomen and pelvis were obtained without intravenous administration of iodinated contrast. Sagittal and coronal computerized reformatted images were also obtained. The lack of intravenous contrast reduces the sensitivity of detecting solid organ disease.. All CT images were acquired using low-dose technique with automated exposure control. COMPARISON: None. FINDINGS: Abdomen: 1. Small 3 mm subpleural nodule in the right lower lobe. 2. Numerous low-attenuation lesions scattered throughout the liver largest of which in the right hepatic lobe measures 2.5 x 2.3 cm and is compatible with metastatic disease. 3. Peritoneal stranding and nodularity consistent with peritoneal carcinomatosis. Mild mesenteric edema. There are postsurgical changes in the anterior abdomen with mesh relating to ventral hernia repair. 4. Mild bilateral hydronephrosis is stable when compared to April 21, 2018. Obstructing renal stone is not identified. There is a 1 to 2 mm nonobstructing stone in the left kidney. 5. The gallbladder, pancreas, and adrenal glands appear normal. 6. Right lower quadrant ileostomy. The bowel gas pattern is stable relative to April 21, 2018. There are some slightly distended loops of small bowel in the left abdomen with fecal appearing material proximal to an area of transition and narrowing. Linear opacities in the midabdomen relating to small bowel loops may relate to calcifications or postsurgical change. Findings may relate to a partial obstruction although correlation with ostomy output is recommended.. Pelvis: 1. A small amount of air is present within the bladder. Wall is slightly thickened although unchanged relative to prior. There are no surrounding inflammatory changes. 2. There is extensive presacral soft tissue thickening likely relating to sequela of XRT. A 5 to 6 cm air-fluid collection in the pelvis adjacent to the distal rectum has increased in size when compared to April 21, 2018 suspicious for an abscess. Surrounding wall thickening and inflammatory changes present. 3. Osseous structures are intact. IMPRESSION: 1. Air-fluid collection in the lower pelvis adjacent to the distal rectum concerning for an abscess/contained perforation. There is surrounding thick rind of tissue which may relate to inflammatory change or sequela of prior XRT. 2. Diffuse hepatic metastatic disease secondary to the patient's history of rectal malignancy. The findings are stable relative to April 21, 2018. There is peritoneal carcinomatosis with mild mesenteric edema. 3. Moderately distended small bowel loops in the left abdomen with stool-like material likely relates to sequela of partial obstruction or significantly decreased motility. The appearance is stable from April 21, 2018. The patient has a right lower quadrant ileostomy. 4. Stable mild bilateral hydronephrosis. The bladder wall has a slightly thickened appearance and contains air. [facility]-[id number] Performing Organization Address City/State/Zipcode Phone Number [facility] [address] [place] [address] XR Chest 1 Vw Portable (05/22/2018 5:25 PM)Only the most recent of4 resultswithin the time period is included. Narrative Performed At EXAMINATION:XR CHEST 1 VW PORTABLE [facility] CLINICAL HISTORY:weakness COMPARISON:01/22/2018 IMPRESSION: 1.Lungs are clear. 2.Mediastinal contours and cardiac silhouette are unremarkable. 3.Right chest Mediport with tip in the lower SVC. 4.No acute osseous abnormality. [facility]-[id number] Procedure Note Interface, Radiology Results Incoming - 05/22/2018 5:37 PM CDT EXAMINATION: XR CHEST 1 VW PORTABLE CLINICAL HISTORY: weakness COMPARISON: 01/22/2018 IMPRESSION: 1. Lungs are clear. 2. Mediastinal contours and cardiac silhouette are unremarkable. 3. Right chest Mediport with tip in the lower SVC. 4. No acute osseous abnormality. [facility]-[id number] Performing Organization Address [facility] [place] Phone Number [facility] [address] [place] [address] Estimated GFR (04/25/2018 4:00 AM)Only the most recent of19 resultswithin the time period is included. GFR Non Af Amer 52 (A) mL/min/1.73 m2 [facility] DEPARTMENT OF PATHOLOGY AND GENOMIC MEDICINE GFR Af Amer 63 mL/min/1.73 m2 [facility] DEPARTMENT OF Comment: PATHOLOGY AND GENOMIC Chronic [...] Americans. Specimen Plasma specimen Performing Organization Address [facility]/Zipcode Phone Number [facility] DEPARTMENT OF PATHOLOGY AND [address] [place] [id number] [employer] MEDICINE Carcinoembryonic antigen (CEA) (04/24/2018 10:03 AM)Only the most recent of3 resultswithin the time period is included. CEA 30.0 (H) 0.0 - 3.8 ng/mL [facility] DEPARTMENT OF PATHOLOGY Comment: AND [facility] Reference range for heavy smokers:0.0 - 5.5 ng/mL The ELISA Salma 8000 CEA immunoassay was used. Results obtained with different assay methods or kits should not be used interchangeably and may be different. Specimen Serum Performing Organization Address [facility] [place] Phone Number [facility] DEPARTMENT OF PATHOLOGY AND [address] [place] [address] Urine eosinophils (04/22/2018 5:00 AM)Only the most recent of3 resultswithin the time period is included. Eosinophils, urine PRESENT (A) [facility] DEPARTMENT OF PATHOLOGY AND [facility] Specimen Urine Performing Organization Address [facility] [place] Phone Number [facility] DEPARTMENT OF PATHOLOGY AND [address] [place] [address] Urea nitrogen, urine, random (04/22/2018 5:00 AM)Only the most recent of2 resultswithin the time period is included. Urea nitrogen, urine, random 700 mg/dL [facility] DEPARTMENT OF PATHOLOGY AND [facility] Specimen Urine Performing Organization Address [facility] [place] Phone Number [facility] DEPARTMENT OF PATHOLOGY AND [address] [place] [address] Chloride level, urine, random (04/22/2018 5:00 AM)Only the most recent of2 resultswithin the time period is included. Chloride, urine, random <20 mEq/L [facility] DEPARTMENT OF PATHOLOGY AND GENOMIC MEDICINE Specimen Urine Performing Organization Address [facility] [place] Phone Number [facility] DEPARTMENT OF PATHOLOGY AND [address] [place] [address] Partial thromboplastin time, activated (04/22/2018 12:30 AM)Only the most recent of2 resultswithin the time period is included. PTT 34.7 23.0 - 36.0 sec [facility] DEPARTMENT OF PATHOLOGY Comment: AND [facility] PTT therapeutic range for unfractionated heparin is 61.0-112.0 seconds which corresponds to Anti-Xa 0.3-0.7 U/ml. Specimen Blood Performing Organization Address [facility] [place] Phone Number [facility] DEPARTMENT OF PATHOLOGY AND [address] [place], [place] [id number] [facility] MEDICINE CT Abd/Pelvic External Study (04/21/2018 7:11 PM) Narrative Performed At This exam was not acquired at a [employer] facility and has not been [facility] interpreted by a [employer] Provider.The exam was imported into our imaging system for comparisons purposes. Performing Organization Address [facility]/Zipcode Phone Number [facility] [address] [place] [address] XR Chest External Study (04/21/2018 5:01 PM) Narrative Performed At This exam was not acquired at a [employer] facility and has not been [facility] interpreted by a [employer] Provider.The exam was imported into our imaging system for comparisons purposes. Performing Organization Address [facility] Phone Number [facility] [address] [place] [id number] Vitamin D 25 hydroxy level (03/25/2018 11:29 AM) Vitamin D, 25-hydroxy 17.4 (L) 30.0 - 150.0 [facility] DEPARTMENT OF Comment: ng/mL PATHOLOGY AND GENOMIC [...] alternative methods. Specimen Blood Performing Organization Address [facility] Phone Number [facility] DEPARTMENT OF PATHOLOGY AND [address] [place] [address] LDH (03/25/2018 11:29 AM)Only the most recent of2 resultswithin the time period is included. LDH 246 (H) 87 - 225 U/L [facility] DEPARTMENT OF PATHOLOGY AND GENOMIC MEDICINE Specimen Plasma specimen Performing Organization Address [facility]/Zipcode Phone Number [facility] DEPARTMENT OF PATHOLOGY AND [address] [place] [address] GENOMIC MEDICINE GGT (03/25/2018 11:29 AM)Only the most recent of2 resultswithin the time period is included. GGT 36 0 - 59 U/L [facility] DEPARTMENT OF PATHOLOGY AND GENOMIC MEDICINE Specimen Plasma specimen Performing Organization Address City/State/Zipcode Phone Number [facility] DEPARTMENT OF PATHOLOGY AND [address] [place] [address] GENOMIC MEDICINE IR Port Placement (02/20/2018 12:35 PM) [...] by a registered nurse. The physician intraservice [id number] time with the patient was 17 minutes. [...] pocket was washed thoroughly with antibacterial solution.The 6.6-Palauan catheter was tunneled from the port pocket [...] Complications:None. Specimens removed:Not applicable. Assistants:None. IMPRESSION:A 6.6 Palauan power-injectable port catheter was placed via the right internal jugular vein as described above.The port catheter is ready for use. Thank you for allowing us to participate in the care of your patient. [facility]-[id number] Procedure Note Hm Interface, Radiology Results Incoming [...] by a registered nurse. The physician intraservice [id number] time with the patient was 17 minutes. [...] was washed thoroughly with antibacterial solution. The 6.6-Palauan catheter was tunneled from the port pocket [...] Not applicable. Assistants: None. IMPRESSION: A 6.6 Palauan power-injectable port catheter was placed via the right internal jugular vein as described above. The port catheter is ready for use. Thank you for allowing us to participate in the care of your patient. [facility]-[id number] Performing Organization Address City/State/Zipcode Phone Number [facility] [address] [place] [address] CT Chest W Contrast Abdomen W Wo Contrast Pelvis W Contrast (02/17/2018 3:09 PM ) Narrative Performed At EXAMINATION:CT CHEST W CONTRAST ABDOMEN W WO CONTRAST PELVIS W [facility] CONTRAST History: C20 Malignant neoplasm of [...] is concerning for persistent infection or leak. [facility]-[id number] Procedure Note Hm Interface, Radiology Results Incoming - 02/17/2018 5:18 PM [...] is concerning for persistent infection or leak. [facility]-[id number] Performing Organization Address City/[facility]/[place] [facility] Phone Number [email or web address] [address] [place] [address] Albumin level (02/06/2018 9:00 AM) Albumin 2.5 (L) 3.5 - 5.0 g/dL [facility] DEPARTMENT OF PATHOLOGY AND GENOMIC MEDICINE Specimen Plasma specimen Performing Organization Address [facility] [place] Phone Number [facility] DEPARTMENT OF PATHOLOGY AND [address] [place] [address] GENOMIC MEDICINE Surgical pathology request (01/30/2018 3:13 PM)Only the most recent of5 resultswithin the time period is included. [facility] DEPARTMENT OF PATHOLOGY AND GENOMIC MEDICINE Surgical pathology report See link below for PDF [facility] DEPARTMENT OF Lab Report PATHOLOGY AND GENOMIC MEDICINE Result status This is Final Report to [facility] DEPARTMENT OF [id number] PATHOLOGY AND GENOMIC MEDICINE Performing Organization Address [facility] Phone Number [facility] DEPARTMENT OF PATHOLOGY AND [address] [place] [address] Abdomen Pelvis Wo Contrast (01/23/2018 6:31 [...] postoperative perirectal gas and fluid. Some remains. [facility]-[id number] Procedure Note [facility], Radiology Results Incoming - 01/23/2018 7:03 PM [...] postoperative perirectal gas and fluid. Some remains. [facility]-[id number] Performing Organization Address City/[facility] [place] [facility] Phone Number [facility] [address] [place] [address] Gastrointestinal panel (01/23/2018 3:29 PM) Gastrointestinal panel Negative for all pathogens tested: [facility] DEPARTMENT OF Negative for Salmonella PATHOLOGY AND [...] Specimen Stool - Nonpreserved Performing Organization Address [facility] [place] [facility] Phone Number [facility] DEPARTMENT [place] [address] GENOMIC MEDICINE Osmolality, urine (01/23/2018 5:20 AM) Osmolality, urine 517 50 - 1,400 mOsm/kg [facility] DEPARTMENT OF PATHOLOGY AND GENOMIC MEDICINE Specimen Urine Performing Organization Address City/State/Zipcode Phone Number [facility] DEPARTMENT OF PATHOLOGY AND [address] [place] [address] [employer] [address] Abdomen Pelvis W Contrast (12/09/2017 10:10 [...] at 12/09/2017 10:41 PM who verbalized understanding. [facility]-[id number] Procedure Note [facility], Radiology Results Incoming - 12/09/2017 10:45 PM [...] at 12/09/2017 10:41 PM who verbalized understanding. [facility]-[id number] Performing Organization Address City/[facility]/[place] [facility] Phone Number [facility] [address] [place] [address] XR Abdomen 1 Vw Portable (12/06/2017 4:40 AM) Narrative Performed At EXAMINATION:XR ABDOMEN 1 VW PORTABLE [facility] CLINICAL HISTORY:Vomiting COMPARISON:None. IMPRESSION: Gaseous distention of few small bowel loops. There is some paucity of distal colonic content. Findings represent possible small bowel obstruction. Mesh clips project over the abdomen. Upper quadrant clips are noted. Regional skeletal structures are within normal limits. [facility]-[id number] Procedure Note Interface, Radiology Results Incoming - 12/06/2017 5:10 AM CDT EXAMINATION: XR ABDOMEN 1 VW PORTABLE CLINICAL HISTORY: Vomiting COMPARISON: None. IMPRESSION: Gaseous distention of few small bowel loops. There is some paucity of distal colonic content. Findings represent possible small bowel obstruction. Mesh clips project over the abdomen. Upper quadrant clips are noted. Regional skeletal structures are within normal limits. [facility]-[id number] Performing Organization Address City/[facility] [place] [facility] Phone Number [facility] [address] [place] [address] US Renal (12/05/2017 4:39 PM) Narrative Performed [...] cm x 4.9 cm The right kidney nfapnirt16.9 cmLENGTH X8.2 cm AP. The right renal parenchymal thickness measures 1.8 cm. The left kidney hpvezspu73.2 cm LENGTH X 5.8 cm AP. The left renal parenchymal thickness measures 1.6 cm. Color flowDoppler confirm arterial flow to both kidneys. The bladder at presentation 6.2 cm x 11.9 cm x 9.3 cm for volume of 310 mL. IMPRESSION: Abnormal study. No evidence of obstructive uropathy. Right renal cortical simple cyst. [facility]-[id number] . Procedure Note [facility], Radiology Results Incoming - 12/05/2017 5:22 PM [...] obstructive uropathy. Right renal cortical simple cyst. [facility]-[id number] . Performing Organization Address City/State/Zipcode Phone Number [facility] [address] [place] [address] MRI Pelvis W Wo Contrast (08/06/2017 1:40 PM) Narrative Performed At EXAMINATION:MRI PELVIS W WO [facility] CLINICAL H[facility]ORY:C20 Malignant neoplasm of [...] stage IIIB middle one third rectal cancer [facility]-[id number] Procedure Note [facility], Radiology Results Incoming - 08/06/2017 6:18 PM [employer] EXAMINATION: MRI PELVIS W WO CONTRAST CLINICAL [...] stage IIIB middle one third rectal cancer [facility]-[id number] Performing Organization Address City/State/Zipcode Phone Number [address] [address] [place] [address] after 07/01/2017 Insurance Payer Benefit Plan / Group Subscriber ID Type Phone Address AETNA AETNA HMO,POS,EPO, MC/EC xxxxxxxxx HMO [phone] [place] [phone]
[2018-07-02] MEDS ORDERED: FENTANYL CITR 100 MCG/2 ML ONE (14:37)
[2018-07-02] MEDS ORDERED: NA CHLORIDE 0.9% 1,000 ML ONE (14:38)
[2018-07-02] MEDS ORDERED: ONDANSETRON 4 MG/2 ML VIAL ONE (14:38)
[2018-07-02 14:41] LABS: Absolute Lymphocytes (CBC) 0.3 K/uL (0.7-4.9); Absolute Monocytes 0.4 K/uL (0.1-1.3); Absolute Neutrophil 4.6 K/uL (1.8-8.0); Basophils % 0.6 % (0-1.3); Eosinophils % 0.1 % (0-4.4); Hematocrit 20.4 % (39.6-49.0); Lymphocytes % 5.6 % (15.3-44.8); MCH 32.5 pg (27.0-35.0); MCV 101.7 fL (80-100); MPV 8.2 fL (7.6-11.3); Monocytes % 8.1 % (3.3-12.3)
[2018-07-02 14:56] LABS: Albumin 1.9 g/dL (3.4-5.0); Bilirubin Direct 0.2 mg/dL (0-0.2); Bilirubin Total 0.4 mg/dL (0.2-1.0); Protein, Total 6.5 g/dL (6.4-8.2)
--- NOTE | 2018-07-02 15:24 | RAD REPORT ---
EXAM DESCRIPTION: CT - Abdomen Pelvis Wo Contrast - 07/02/2018 3:13 pm CLINICAL HISTORY: Abdominal pain. Possible obstruction;Abd pain COMPARISON: Abdomen Pelvis Wo Contrast dated 04/21/2018; Abdomen Pelvis W Contrast dated 07/19/20 17 TECHNIQUE: CT imaging of the abdomen and pelvis was performed without contrast. Solid organ, bowel a nd vascular assessment is limited due to lack of IV and oral contrast. All CT scans are performed using dose optimization technique as appropriate and may include automated exposure control or mA/KV adjustment according to patient size. FINDINGS: Several tree-in-bud opacities are present in the right lung base. A small left pleural eff usion is noted. Innumerable hypodense liver lesions are present compatible with metastatic disease. All of the liver lesions appear larger than on the comparative study.The spleen, pancreas and adrenal glands are eileen l. Bilateral nephrostomy tubes are in place. Omental caking is seen along the left aspect of the abdomen. Multiple soft tissue masses are seen wit hin the abdominal cavity as well compatible with metastatic implants. Nodular soft tissue implants al so seen along the course of the right lower quadrant ostomy site. Multiple dilated small bowel loops are present in the mid abdomen compatible with mild mechanical small-bowel obstruction. Small fat con taining umbilical hernia. Mesh is noted along the anterior abdominal wall. Mild free fluid is seen in the pelvis surrounding the rectum. Soft tissue material seen within the de pendent portion urinary bladder. IMPRESSION: Mild mechanical small-bowel obstruction suspected. Advanced metastatic disease is seen as detailed above. Soft tissue material within the urinary bladder may be blood clot or debris. A limited non-contrast examination was performed as detailed.
--- NOTE | 2018-07-02 16:05 | ER ---
Nurse's Notes [facility] Name: Erlinda Lacey Age: 58 yrs Sex: Male : 1960 Arrival Date: 07/02/2018 Time: 12:52 Bed 6 Private MD: Charisse Gramajo K Diagnosis: Metastatic colon cancer;Bowel obstruction - mechanical Presentation: 07/02 13:13 Presenting complaint: states: "He's got a colostomy that was placed December 03, 1 but it hasn't drained in 5 days. We talked to his oncologist and he also recommended us to come in. He has stage 4 colon cancer. He has 2 nephrostomy tubes, and he has an abscess drain that's draining an abscess in his colon. He's been on Lovenox for a DVT in his left groin, and he's having hematuria that has been going on for the past week. We called them and they told us that was from the nephrostomy surgery, but it seems to have gotten worse. He has had 5 rounds of chemo, but its on hold now to let him get stronger.". Transition of care: patient was not received from another setting of care. Onset of symptoms was July 02, 2018. Risk Assessment: Do you want to hurt yourself or someone else? Patient reports no desire to harm self or others. Care prior to arrival: None. 13:13 Method Of Arrival: Wheelchair aj1 13:13 Acuity: ANDREA 3 aj1 13:23 Acuity: ANDREA 2 aj1 13:24 Initial Sepsis Screen: Does the patient meet any 2 criteria? Systolic BP < 90 mmHg. HR aj1 > 90 bpm. Yes Does the patient have a suspected source of infection? No. Patient's initial sepsis screen is negative. Historical: - Allergies: 13:23 No Known Allergies; aj1 - PMHx: 13:23 colorectal CA; nephrostomy; colostomy; colon abscess drain; aj1 - PSHx: 13:23 portacath right chest; aj1 Screenin:30 Abuse screen: Denies threats or abuse. Denies injuries from another. Nutritional sv screening: No deficits noted. Tuberculosis screening: No symptoms or risk factors identified. Fall Risk No fall in past 12 months (0 pts). Secondary diagnosis (15 points) impaired mobility, IV access (20 points). Ambulatory Aid- None/Bed Rest/Nurse Assist (0 pts). Gait- Weak (10 pts.). Mental Status- Oriented to own ability (0 pts). Total Pak Fall Scale indicates High Risk Score (45 or more points). Fall prevention measures have been instituted. Side Rails Up X 2 Placed Close to Nursing Station Frequent Obs/Assessments Occuring Family Present and informed to notify staff if the need to leave the bedside As available patient and family educated on Fall Prevention Program and Strategies. Assessment: 14:30 General: Appears in no apparent distress. uncomfortable, slender, malnourished, sv Behavior is calm, cooperative, appropriate for age, quiet. Pain: Denies pain. Neuro: Level of Consciousness is awake, alert, obeys commands, Oriented to person, place, time, situation, Speech is normal. Cardiovascular: Patient's skin is warm and dry. Respiratory: Respiratory effort is even, unlabored, Respiratory pattern is regular, symmetrical. GI: Abdomen is flat, Colostomy site is clean and dry. Ostomy appliance is intact. Parent/caregiver reports the patient having nausea, vomiting, no stool via the colostomy for 5 days and started vomiting coffee ground emesis 2 days ago. : to gravity drainage nephrostomy. Derm: Skin is normal. Vital Signs: 13:23 BP 80 / 51; Pulse 92; Resp 20; Temp 97.8; Pulse Ox 99% on R/A; aj1 13:23 Weight 83.46 kg (R); aj1 14:00 BP 83 / 62; Pulse 88; Resp 15; Pulse Ox 100% on R/A; sv 14:32 BP 89 / 63; Pulse 89; Resp 16; Pulse Ox 98% ; sv 14:58 BP 88 / 66; Pulse 88; Resp 14; Pulse Ox 100% on R/A; sv 15:44 BP 96 / 65; Pulse 81; Resp 16; Pulse Ox 100% on R/A; sv ED Course: 12:52 Patient arrived in ED. as 12:52 Charisse Gramajo MD is Private Physician. as 13:18 Triage completed. aj1 13:24 Arm band placed on Patient placed in an exam room. aj1 13:33 Keyon Roland MD is Attending Physician. kdr 13:51 Negrita Ledesma, RAVEN is Primary Nurse. sv 14:30 Patient has correct armband on for positive identification. Placed in gown. Bed in low sv position. Call light in reach. Side rails up X2. Adult w/ patient. Pulse ox on. NIBP on. Door closed. Warm blanket given. Head of bed elevated. 14:35 Accessed Port-a-Cath. using accessed w/ # 20 Bernal needle, ,sterile technique, per hospital protocol. Clean \\T\\ dry. Dressing intact. Good blood return. Flushes easily. 14:35 Initial lab(s) drawn, by me, sent to lab. sv 14:53 Radiology exam delayed due to lab results not completed at this time. (BUN/Creatinine). sj 15:[address] via stretcher. sv 15:13 Abdomen In Process Unspecified. EDMS 15:45 Awaiting re-evaluation by ER provider. sv 16:01 Keyon Roland MD is Hospitalizing Provider. kdr 16:02 Yvette Thompson MD is Hospitalizing Provider. kdr 17:15 Charisse Gramajo MD is Referral Physician. kdr Administered Medications: 14:40 Drug: NS 0.9% 1000 ml Route: IV; Rate: 1 bolus; Site: Port-a-cath; sv 14:40 Drug: Zofran 8 mg Route: IVP; Site: Port-a-cath; sv 15:13 Follow up: Response: No adverse reaction sv 14:45 Drug: fentaNYL (PF) 50 mcg Route: IVP; Site: Port-a-cath; sv 15:13 Follow up: Response: No adverse reaction sv Outcome: 16:03 Decision to Hospitalize by Provider. kdr 17:16 Discharge ordered by . kdr 18:34 Patient left the ED. hb Signatures: Dispatcher [employer] EDMS Aviva Irvin, RN RN aj1 Negrita Ledesma RN RN Keyon Roland MD MD kdr Emperatriz Nowak Amelia as Baxter, Heather, RN RN hb Corrections: (The following items were deleted from the chart) 13:19 13:13 Presenting complaint: states: "He's got a colostomy that was placed November, but it hasn't drained in 5 days. We talked to his oncologist and he also recommended us to come us. He has stage 4 colon cancer. He has 2 nephrostomy tubes, and he has an abscess drain that's draining an abscess in his colon. He's been on Lovenox for a DVT in his left groin, and he's having hematuria that has been going on for the past week. We called them and they told us that was from the nephrostomy surgery, but it seems to have gotten worse. aj1 13:24 13:13 Initial Sepsis Screen: Does the patient meet any 2 criteria? HR > 90 bpm. No. aj1 Patient's initial sepsis screen is negative. Does the patient have a suspected source of infection? No. Patient's initial sepsis screen is negative. aj1 14:10 13:13 Presenting complaint: states: "He's got a colostomy that was placed November aj10 05, but it hasn't drained in 5 days. We talked to his oncologist and he also recommended us to come us. He has stage 4 colon cancer. He has 2 nephrostomy tubes, and he has an abscess drain that's draining an abscess in his colon. He's been on Lovenox for a DVT in his left groin, and he's having hematuria that has been going on for the past week. We called them and they told us that was from the nephrostomy surgery, but it seems to have gotten worse. He has had 5 rounds of chemo, but its on hold now to let him get stronger." aj1
--- NOTE | 2018-07-02 16:05 | EDPHYS ---
Physician Documentation [facility] Name: Erlinda Lacey Age: 58 yrs Sex: Male : 1960 Arrival Date: 07/02/2018 Time: 12:52 Bed 6 Private MD: Charisse Gramajo K ED Physician Keyon Roland Historical: - Allergies: 07/02 13:23 No Known Allergies; aj1 - PMHx: 13:23 colorectal CA; nephrostomy; colostomy; colon abscess drain; aj1 - PSHx: 13:23 portacath right chest; aj1 Vital Signs: 13:23 BP 80 / 51; Pulse 92; Resp 20; Temp 97.8; Pulse Ox 99% on R/A; aj1 13:23 Weight 83.46 kg (R); aj1 14:00 BP 83 / 62; Pulse 88; Resp 15; Pulse Ox 100% on R/A; sv 14:32 BP 89 / 63; Pulse 89; Resp 16; Pulse Ox 98% ; sv 14:58 BP 88 / 66; Pulse 88; Resp 14; Pulse Ox 100% on R/A; sv 15:44 BP 96 / 65; Pulse 81; Resp 16; Pulse Ox 100% on R/A; sv MDM: 16:03 Patient medically screened. kdr 07/02 13:55 Order name: Basic Metabolic Panel; Complete Time: 15:43 kdr 07/02 13:55 Order name: CBC with Diff kdr 07/02 13:55 Order name: Creatinine for Radiology; Complete Time: 15:43 kdr 07/02 13:55 Order name: Hepatic Function; Complete Time: 15:43 kdr 07/02 13:55 Order name: Lipase; Complete Time: 15:43 kdr 07/02 17:23 Order name: Manual Differential EDMS 07/02 13:55 Order name: IV Saline Lock; Complete Time: 14:46 kdr 07/02 13:55 Order name: Labs collected and sent; Complete Time: 14:46 kdr 07/02 15:07 Order name: Abdomen ; Complete Time: 15:43 EDMS Administered Medications: 14:40 Drug: NS 0.9% 1000 ml Route: IV; Rate: 1 bolus; Site: Port-a-cath; sv 14:40 Drug: Zofran 8 mg Route: IVP; Site: Port-a-cath; sv 15:13 Follow up: Response: No adverse reaction sv 14:45 Drug: fentaNYL (PF) 50 mcg Route: IVP; Site: Port-a-cath; sv 15:13 Follow up: Response: No adverse reaction sv Disposition: 07/02/18 17:16 Discharged to Home. Impression: Metastatic colon cancer, Bowel obstruction - mechanical. - Condition is Stable. - Discharge Instructions: Small Bowel Obstruction, [id number]. - Medication Reconciliation Form, Thank You Letter form. - Follow up: Charisse Gramajo MD; When: 48 Hours; Reason: If symptoms return, Further diagnostic work-up, Recheck today's complaints, Continuance of care, Re-evaluation by your physician. - Problem is chronic. - Symptoms are unchanged. - Notes: Discharge to Hospice Care Addendum: 07/13/2018 22:44 Addendum: CC: Abdominal pain, no output from colostomy and blood in his uriostomy k drainage HPI: The states that the patient has not had any output from his colostomy bag in the last five days and that his uriostomy tubes have blood in them. . 22:44 Addendum: ROS: Const: No fever, chills or weight loss, Eyes: no visual changes or c/o, k Neck: no pain or injury, CV: no CP or palpitations, Resp: no SOB, cough or congestion, Abd: no n/v/d or pain, Back: no pain or injury, : no pain or bleeding, MS/Ext: no pain, injury, swelling, tingling, Skin: no lacerations, pain, injury, skin turgor good, Neuro: CN grossly intact and no other deficits, Psych: Appropriate for age, Allergy/Immunology: no rashes or other s/s, Endo: no evidence of polyuria, polydipsia, temperature control or other s/s . Addendum: Exam: Const: WDWN WM in mild distress - lethargic, Head/Face: no injury, pain or deformity, Eyes: PERRLA, ENT: no pain, injury or bleeding, Neck: no pain, injury or deformity, full ROM, Chest/Axilla: No pain, injury or deformity, CV: no rubs, gallops, murmurs, regular rate, Resp: CTAB, regular rate, Abd/GI: distended, NT, BS diminished in all quads and normal, empty colostomy bag Back: no injury or deformity, full ROM, MS/Extremity: no injury or deformity, FROM, distal pulses good and equal, Skin: no rashes, ecchymosis skin turgor poor, Neuro: CN grossly intact, no other neuro deficits, the patient is generally lethargic Psych: appropriate for age, no SI/HI, no depression . Addendum: MDM (Discharge) All VS and nursing notes reviewed. After considerable discussion with multiple family members, they family and patient decided to be discharged on hospice care and to not attempt any further intervention or rescue in an acute care setting. All present were in agreement with this discussion and plan of action. The patient was counseled on the results and need for follow-up. The patient was discharged in poor condition. They were happy with the care they received and the plan for d/c and follow-up. . Signatures: Dispatcher [employer] [facility] Aviva Irvin RN RN aj1 Negrita Ledesma RN RN Keyon Roland MD MD [facility] Bernie Hough RN RN hb Corrections: (The following items were deleted from the chart) 07/02 15:07 13:55 Abdomen Pelvis W Con+CT.RAD.BRZ ordered. [facility] 17:14 16:03 Hospitalization Ordered by Yvette Thompson MD for Inpatient Admission. Preliminary kdr diagnosis is Anemia, unspecified; Mechanical Bowel obstruction; Stage 4 Colon cancer. Bed requested for Telemetry/MedSurg (Inpatient). Status is Inpatient Admission. Condition is Serious. Problem is an acute exacerbation. Symptoms are unchanged. UTI on Admission? No. kdr 17:16 17:16 07/02/2018 17:16 Discharged to Home. Impression: Metastatic colon cancer. kdr Condition is Stable. Forms are Medication Reconciliation Form, Thank You Letter, Antibiotic Education, Prescription Opioid Use. Follow up: Charisse Gramajo; When: 48 Hours; Reason: If symptoms return, Further diagnostic work-up, Recheck today's complaints, Continuance of care, Re-evaluation by your physician. Problem is chronic. Symptoms are unchanged. kdr 18:34 17:16 07/02/2018 17:16 Discharged to Home. Impression: Metastatic colon cancer; Bowel hb obstruction - mechanical. Condition is Stable. Forms are Medication Reconciliation Form, Thank You Letter, Antibiotic Education, Prescription Opioid Use. Follow up: Charisse Gramajo; When: 48 Hours; Reason: If symptoms return, Further diagnostic work-up, Recheck today's complaints, Continuance of care, Re-evaluation by your physician. Problem is chronic. Symptoms are unchanged. kdr
[2018-07-02 17:23] LABS: Anisocytosis 3+; Blood Morphology Comment NOTED (NOT SEEN); Platelet Estimate ADEQ
[2018-07-02 17:24] LABS: Hypochromasia 2+; Macrocytosis 1+
--- NOTE | 2018-07-02 17:53 | P.CNS ---
- Date of Service Date of Service: 07/02/18 - History of Present Illness This is a 58-year-old male with significant past medical history of end-stage rectal cancer with colostomy and rectal cancer resection done at [facility] in September of 2017 who presented to the ED complaining of having some folks failure to thrive along with low colostomy output since past couple of days. Patient has been diagnosed with end-stage rectal cancer since last June and has been having chemotherapy and surgical resection up until June after which it is he has been declining functionally and this chemotherapy was stopped. Family has been seen by a home health agency at the house who has been taking care of the patient. Per the family members and patient at bedside who states that patient has stopped taking anything orally for past 1 month and has been not doing well overall since past couple days. Patient has been having increasing pain and thus is pain medication has been increased by his oncologist and returned he developed constipation from that. In the ER patient had lab work and imaging done which was consistent with partial small bowel obstruction along with anemia and dehydration. Patient was referred over for admission to set up hospice along with IV fluids and blood products. Medicine team was consulted for the case. - Allergies Allergies/Reactions: Allergy/AdvReac Type Severity Reaction Status Date / Time No Known Allergies Allergy Unverified 04/21/18 21:26 - Home Medications Home Medications List: Reviewed - Review of Systems General: As per HPI Eyes: As per HPI ENT: As per HPI Respiratory: As per HPI Cardiovascular: As per HPI Gastrointestinal: Nausea, Vomiting, Abdominal Pain, Constipation, Hematochezia Genitourinary: Incontinence, As per HPI Musculoskeletal: As per HPI Integumentary: Jaundice - Past Medical History -: The rectal cancer Has patient received pneumonia vaccine in the past: Yes Diabetic: No - Past Surgical History -: Rectal resection - Family History Family History: Reviewed- Non-Contributory - Social History Smoking Status: Former smoker Counseled to stop smoking: No Alcohol use: No Counseled to stop alcohol use: No CD- Drugs: No Counseled to stop illicit drug use: No Caffeine use: No Place of Residence: Home - Physical Examination General: Awake, alert, oriented, Other (Cachectic and ill appearing patient) HEENT: Head atraumatic, normocephalic, Conjunctivae non-erythematous, Ears/Nose no mass, lesion or discharge noted, Unremarkable (Icteric sclerae) Neck: Supple, No JVD, lymph nodes, bruit or thyromegaly noted Chest: Unremarkable Lungs: Bilateral good equal air entry, Clear to auscultation, No rhonchi, No rales Heart: Normal heart sounds, No murmur or gallop Abdomen: Soft, Bowel sounds normal, No guarding, rigidity, tenderness or mass noted, No hepatosplenomegaly, distention or bruit noted, Other (Colostomy bag noted. With no output at this time) Extremities: No leg edema, No calf tenderness Skin: Other (Dry and frail appearing.) Lymphatics: No lymph node enlargement in neck, or supraclavicular, infraclavicular region Neurological: No focal neurological deficit External Genitalia: Deferred Rectal: Deferred - Studies Laboratory Data (last 24 hrs) 07/02/18 14:20: Creatinine 2.20 H 07/02/18 14:20: WBC 5.4, Hgb 6.5 L*, Hct 20.4 L*, Plt Count 233 07/02/18 14:20: Sodium 139, Potassium 4.0, BUN 44 H, Creatinine 2.20 H, Glucose 83, Total Bilirubin 0.4, AST 60 H, ALT 23, Alkaline Phosphatase 111, Lipase 113 - Problems (Diagnosis) (1) Partial bowel obstruction Current Visit: Yes Status: Acute (2) Dehydration Current Visit: Yes Status: Acute (3) Anemia Current Visit: Yes Status: Acute (4) Malnutrition Current Visit: Yes Status: Acute (5) Failure to thrive in adult Current Visit: Yes Status: Acute (6) Colostomy complication Current Visit: Yes Status: Acute (7) Rectal cancer Current Visit: Yes Status: Acute (8) H/O resection of rectum Current Visit: Yes Status: Acute - Assessment and Plan The patient was seen and evaluated at bedside with family members and RN in the ER. Long-term prognosis, disease process, treatment options, hospice care, was discussed. Patient's family member at this time already has patient enrolled in [facility] and hospice care. [facility] and hospice care was contacted from the ER with setting up the patient and will be at the house tonight to deliver a hospital bed along with other medications that will be needed. Plan of care and long-term prognosis again was discussed with the family member at bedside. Patient's was explained in detail to over the phone regarding the plan of care along with the son and the daughter. All in agreement with hospice care and this patient will be discharged from the ER with [facility] and hospice care for further end of life care. An order was faxed to [facility] hospice care to enroll the patient in the hospice for end stage rectal cancer and progressive decline. The ER physician was notified. Patient was then sent home with hospice care - Discharge Plan Discharge Plan: Home Plan to discharge in: 24 Hours - Code Status/Comfort Care Comfort Measures: Hospice Care - Physician Review Critical Care: Yes
== END 2018-07-02 18:34 | disposition home or self-care (01) ==
LOC: ER 12:50
DX: K56.699 Other intestinal obstruction unspecified as to partial versus complete obstruction (principal); C18.9 Malignant neoplasm of colon, unspecified
CPT/HCPCS: 36415; 74176; 80048; 80076; 83690; 85025; 96374; 96375; 99285; J2405; J3010; J7030